=== PATIENT | male | born 1945 | race Asian ===

== ENCOUNTER 2016-07-01 09:48 | Emergency (ER) | payer MEDICARE, BC ==
[~2016-07-01] VITALS: Wt 70.0 kg
[~2016-07-01 09:48] MED LIST: FENO48TA PO; GLEE400 PO; METF500T PO; PANT40TA4 PO; REVLIMID PO
--- NOTE | 2016-07-01 10:16 | ERD ---
ER Documentation Chief Complaint Date/Time DATE: 07/01/16 TIME: 10:16 Chief Complaint sent by pmd for low h&h . gen weakness and fatigue HPI 70-year-old male with history of diabetes mellitus type 2, dyslipidemia and myelodysplastic syndrome with chronic anemia status post multiple transfusions referred to the ED by Dr Monahan for transfusion due to hemoglobin of 5.6 g/dL. Patient is essentially asymptomatic except for mild exertional weakness. Denies chest pain or palpitations. No shortness of breath or cough. No headache or neck pain. No hematemesis, hematochezia, hematuria or other signs of acute blood loss. No fevers or chills. ROS All systems reviewed and are negative except as per history of present illness. Medications Home Meds Active Scripts Imatinib Mesylate* (Gleevec*) 400 Mg Tablet, 400 MG PO DAILY@17 for 30 Days, #30 Prov:DARYL CLINE MD 02/05/16 Metformin Hcl (Glucophage) 500 Mg Tablet, 500 MG PO AC BREAKFAST DINNER for 90 Days, #90 TAB Prov:DARYL CLINE MD 01/30/16 Reported Medications [Revlimid] No Conflict Check, 10 MG PO DAILY for 28 Days, #21 04/19/16 Pantoprazole* (Pantoprazole*) 40 Mg Tablet.dr, 40 MG PO DAILY, TAB 04/19/16 Fenofibrate Nanocrystallized* (Tricor*) 48 Mg Tablet, 48 MG PO DAILY, TAB 01/31/16 Allergies Allergies: Coded Allergies: No Known Allergies (Verified Allergy, Unknown, 07/01/16) PMhx/Soc Reviewed in chart. As per HPI. History of Surgery: No Anesthesia Reaction: No Hx Neurological Disorder: No Hx Respiratory Disorders: No Hx Cardiac Disorders: No Hx Psychiatric Problems: No Hx Miscellaneous Medical Probl: Yes (anemia, Myelodysplastic syndrome) Hx Alcohol Use: No Hx Substance Use: No Hx Tobacco Use: No FmHx No relevant to presenting complaint. Physical Exam Vitals Vital Signs Date Time Temp Pulse Resp B/P Pulse Ox O2 Delivery O2 Flow Rate FiO2 07/01/16 09:51 97.9 100 20 163/74 98 Physical Exam Const: Alert, no acute distress. Head: Atraumatic Eyes: Pale conjunctiva ENT: Normal External Ears, Nose and Mouth. Neck: Full range of motion. No JVD Resp: Clear to auscultation bilaterally Cardio: Regular rate and rhythm, no murmurs Abd: Soft, non tender, non distended. Normal bowel sounds Skin: No petechiae or rashes Back: No midline or flank tenderness Ext: No cyanosis, or edema Neur: Awake and alert. No focal deficit observed Psych: Normal Mood and Affect Result Diagram: 07/01/16 1025 07/01/16 1025 Results 24 hrs Laboratory Tests Test 07/01/16 10:25 Anion Gap 18 Basophils # Pending Basophils % Pending Blood Morphology Comment Blood Urea Nitrogen 15mg/dl Calcium Level 9.3mg/dl Carbon Dioxide Level 23mmol/L Chloride Level 109mmol/L Creatinine 0.94mg/dl Eosinophils # Pending Eosinophils % Pending Glucose Level 128mg/dl Hematocrit 16.5% Hemoglobin 5.6g/dl Lymphocytes # Pending Lymphocytes % Pending Mean Corpuscular Hemoglobin 28.4pg Mean Corpuscular Hemoglobin Concent 34.0g/dl Mean Corpuscular Volume 83.6fl Mean Platelet Volume 11.3fl Monocytes # Pending Monocytes % Pending Neutrophils # Pending Neutrophils % Pending Nucleated Red Blood Cells # Pending Nucleated Red Blood Cells % Pending Platelet Count 5310^3/UL Potassium Level 3.7mmol/L Red Blood Count 1.9710^6/ul Red Cell Distribution Width 17.7% Sodium Level 146mmol/L White Blood Count 3.710^3/ul Current Medications Medications (Trade) Dose Ordered Sig/Sun Route PRN Reason Start Time Stop Time Status Last Admin Dose Admin Diphenhydramine HCl (Benadryl) 50 mg STK-MED ONCE .ROUTE 07/01/16 11:31 07/01/16 11:32 DC Acetaminophen (Tylenol Tab) 325 mg STK-MED ONCE .ROUTE 07/01/16 11:31 07/01/16 11:32 DC Acetaminophen (Tylenol Tab) 650 mg ONCE ONCE PO 07/01/16 12:00 07/01/16 12:01 DC 07/01/16 11:40 Diphenhydramine HCl (Benadryl) 25 mg ONCE ONCE IV 07/01/16 12:00 07/01/16 12:01 DC 07/01/16 11:40 Procedures/MDM DOCUMENTS REVIEWED: ED nurse, prior ED, prior records ED COURSE: Risks and benefits of blood transfusion including allergic reactions , infectious diseases such as HIV and hepatitis C explained and understood. Informed consent for blood transfusion obtained. Type and crossmatch for 2 units packed red blood cells. 1 unit transfused without complications. They will be a significant delay in obtaining the second unit. REEXAMINATION/REEVALUATION: Time: 14: 30. Doing well. Asymptomatic [employer]KIN-year-old male with history of diabetes mellitus type 2, dyslipidemia and myelodysplastic syndrome with chronic anemia status post multiple transfusions referred to the ED by Dr Monahan for transfusion due to hemoglobin of 5.6 g/dL. patient received 1 unit of packed red blood cells. There will be a significant delay in obtaining the second unit. Discussed with Dr Monahan. As this is a chronic condition and the patient is asymptomatic he agrees that there is no urgency to complete the transfusion today and the patient can be discharged and he will follow-up for further transfusions as needed. Counseled [patient and family] regarding diagnostic workup, diagnosis and need for followup. Understands to return to ED if symptoms recur, worsen or any other concerns. 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
[2016-07-01 10:38] LABS: HEMATOCRIT 16.5 % (42.0-52.0); MEAN CORPUSCULAR HEMOGLOBIN 28.4 pg (29.0-33.0); MEAN CORPUSCULAR VOLUME 83.6 fl (82.0-101.0); MEAN PLATELET VOLUME 11.3 fl (7.4-10.4); PLATELET COUNT 53 10^3/UL (140-440); RED BLOOD COUNT 1.97 10^6/ul (4.70-6.10); RED CELL DISTRIBUTION WIDTH 17.7 % (11.5-14.5); UNCORRECTED WBC 3.7 10^3/ul (4.8-10.8); WHITE BLOOD COUNT 3.7 10^3/ul (4.8-10.8)
[2016-07-01 10:46] LABS: CONDITION 1; LH ANALYZER COMMENTS 1; SUSPECT 1
[2016-07-01 10:50] LABS: HEMOGLOBIN 5.6 g/dl (14.0-18.0)
[2016-07-01 10:53] LABS: POTASSIUM 3.7 mmol/L (3.5-5.1)
[2016-07-01 10:55] LABS: CREATININE 0.94 mg/dl (0.61-1.24)
[2016-07-01 10:56] LABS: CALCIUM 9.3 mg/dl (8.4-10.2)
[2016-07-01] MEDS ORDERED: DIPHENHYDRAMINE 50 MG INJ ONE (11:31)
[2016-07-01] MEDS ORDERED: ACETAMINOPHEN 325 MG TAB ONE (11:31)
[2016-07-01] MEDS ORDERED: ACETAMINOPHEN 325 MG TAB PO ONE (12:00)
[2016-07-01] MEDS ORDERED: DIPHENHYDRAMINE 50 MG INJ IV ONE (12:00)
[2016-07-01 15:24] LABS: LYMPHOCYTES # 1.4 10^3/ul (0.8-2.9); MONOCYTE # 0.2 10^3/ul (0.3-0.9)
[2016-07-01 15:25] LABS: ANISOCYTOSIS 1+; HYPOCHROMASIA 1+; OVALOCYTES 1+; PLATELET ESTIMATE PLT APPEAR DECREASED; POIKILOCYTOSIS 2+
[2016-07-01 15:52] VITALS: BP 118/70; PULSE 78; RESP 16; TEMP 98.1
[2016-07-01] MEDS ORDERED: HYDROCHLOROTHIAZIDE 50 MG TAB PO ONE (16:00)
[2016-07-01] MEDS ORDERED: HYDROCHLOROTHIAZIDE 25 MG TAB PO ONE (16:30)
== END 2016-07-01 16:09 | disposition home or self-care (01) ==
LOC: E/R 09:48
DX: D46.9 Myelodysplastic syndrome, unspecified (principal); D46.4 Refractory anemia, unspecified; E11.9 Type 2 diabetes mellitus without complications; E78.5 Hyperlipidemia, unspecified; Z79.84 Long term (current) use of oral hypoglycemic drugs
CPT/HCPCS: 36415; 36430; 80048; 85025; 86850; 86900; 86901; 86920; 96374; 99284; J1200; P9011

== ENCOUNTER 2016-12-15 12:52 | Inpatient (IN) | payer MEDICARE, BC ==
[2016-12-13 21:42] VITALS: PULSE 108
[~2016-12-15] VITALS: Ht 170.2 cm; Wt 52.2 kg
[2016-12-15] MEDS ORDERED: CEFTRIAXONE 1 GM/50 ML (PMX) 50 ML IVPB STA (13:34)
[2016-12-15] MEDS ORDERED: SOD CHLORIDE 0.9% 1,000 ML IV STA (13:34)
[2016-12-15] MEDS ORDERED: METF500T4 PO (13:42)
[2016-12-15] MEDS ORDERED: FENO48TA4 PO (13:42)
[2016-12-15] MEDS ORDERED: PANT40TA4 PO (13:43)
[2016-12-15] MEDS ORDERED: REVLIMID PO (13:45)
[2016-12-15] MEDS: ONDANSETRON 4 MG INJ IV STA ×2 (13:48→17:37)
[2016-12-15] MEDS: morphine 4 MG/ML VIAL IV STA ×2 (13:48→17:37)
[2016-12-15 13:49] LABS: ADD SCAN DIFF NO
[2016-12-15 14:09] LABS: ABNORMAL IP MESSAGE 1; MEAN CORPUSCULAR HEMOGLOBIN 29.4 pg (29.0-33.0); MEAN CORPUSCULAR VOLUME 91.9 fl (82.0-101.0); PLATELET COUNT 82 10^3/UL (140-415); RED BLOOD COUNT 2.72 10^6/ul (4.70-6.10); RED CELL DISTRIBUTION WIDTH 14.6 % (11.5-14.5)
[2016-12-15 14:12] LABS: ADD UMIC YES; UR ASCORBIC ACID 40 mg/dL (NEGATIVE); UR BILIRUBIN (Dip) NEGATIVE (NEGATIVE); UR BLOOD (Dip) NEGATIVE (NEGATIVE); UR CLARITY CLEAR (CLEAR); UR COLOR YELLOW (YELLOW); UR GLUCOSE (Dip) 2+ mg/dL (NEGATIVE); UR KETONES (Dip) NEGATIVE (NEGATIVE); UR LEUKOCYTE ESTERASE (Dip) NEGATIVE Leu/ul (NEGATIVE); UR MUCUS FEW /HPF (NONE SEEN); UR NITRITE (Dip) NEGATIVE (NEGATIVE); UR RBC 2 /HPF (0-5); UR SPECIFIC GRAVITY (Dip) 1.024 (1.003-1.030); UR TOTAL PROTEIN (Dip) 1+ mg/dl (NEGATIVE); UR UROBILINOGEN (Dip) NEGATIVE (NEGATIVE)
[2016-12-15 14:20] LABS: ALBUMIN 4.4 g/dl (3.3-4.9); ALBUMIN/GLOBULIN RATIO 1.04; BILIRUBIN,INDIRECT 0.1 mg/dl (0-1.1); BILIRUBIN,TOTAL 0.1 mg/dl (0.2-1.3); CALCIUM 9.4 mg/dl (8.4-10.2); CREATININE 1.03 mg/dl (0.61-1.24); POTASSIUM 3.6 mmol/L (3.5-5.1); TOTAL PROTEIN 8.6 g/dl (6.1-8.1)
[2016-12-15] MEDS ORDERED: IODIXANOL LOCM 100 ML BTL ONE (14:47)
[2016-12-15] MEDS ORDERED: SOD CHLORIDE 0.9% 100 ML ONE (14:47)
--- NOTE | 2016-12-15 15:17 | RADRPT ---
PROCEDURE: CT Abdomen and Pelvis with contrast. CLINICAL INDICATION: Abdominal pain , fever TECHNIQUE: CT scan of the abdomen and pelvis with contrast was performed on a multidetector high-r esolution CT scanner. Coronal and sagittal reformatted images were obtained from the axial source im ages. Images were reviewed on a high-resolution PACS workstation. 80 cc of Isovue 300 iodinated cont rast was administered intravenously without reported complication. The total exam CTDI equals 5 mGy and the total exam DLP equals 309 mGy-cm. One or more of the following dose reduction techniques w ere used: Automated exposure control, Adjustment of the mA and/or kV according to patient size, and/ or use of iterative reconstruction technique. COMPARISON: None. FINDINGS: 6 mm right lower lobe nodule. Small left pleural effusion and left lower lobe atelectasis. Coronar y arterial atherosclerosis. Sternotomy wires. Right upper lobe subpleural nodule along the minor f issure. No suspicious hepatic mass identified. A tiny 3 mm hypodense structure in the left hepatic lobe is too small to characterize but possibly a small cyst. The portal vein is patent. Cholelithiasis. T he gallbladder is contracted. No pancreatic ductal dilatation. Multiple wedge areas of hypoattenua tion are seen on the enlarged spleen. The main splenic vein remains patent. No hydronephrosis. Nonobstructing right renal stones. Bilateral renal cysts. No bowel obstruction. The appendix is not clearly visualized but there is no focal inflammatory stra nding in the right lower quadrant. No significant retroperitoneal lymphadenopathy, ascites or evidence of pneumoperitoneum. Aortoiliac atherosclerosis. Degenerative changes of the spine. 8 mm right lateral listhesis and grade 1 anterolisthesis of L4 o n L5. IMPRESSION: Splenomegaly with multiple wedged areas of hypoattenuation concerning for splenic infarcts. Given t he history, the possibility of septic emboli is considered. Small left pleural effusion and left lower lobe atelectasis. 6 mm right lower lobe pulmonary nodule. Consider 6 to 12-month follow-up chest CT for further evalu ation. Cholelithiasis. Nonobstructing right renal stones. RPTAT: AA .Jason Sol MD, MD Date Time Electronically viewed and signed by .Jason Sol MD, MD on 12/15/2016 15:16 .T/
[2016-12-15 15:35] LABS: LYMPHOCYTES # 4.8 10^3/ul (0.8-2.9); MONOCYTE # 3.4 10^3/ul (0.3-0.9); NEUTROPHIL # 19.5 10^3/ul (1.6-7.5)
[2016-12-15] MEDS ORDERED: SODIUM CHLORIDE 0.9% 1L BAG IV* STA (15:51)
[2016-12-15] MEDS ORDERED: CEFEPIME 2GM/50 ML (PMX) 50 ML IVPB STA (15:51)
[2016-12-15] MEDS ORDERED: VANCOMYCIN 1 GM (PMX) 250 ML IVPB ONE (16:00)
--- NOTE | 2016-12-15 18:34 | ERA ---
ER Documentation Chief Complaint Date/Time DATE: 12/15/16 TIME: 18:23 Chief Complaint LEFT LOWER ABDOMINAL PAIN WITH FEVER AND NAUSEA SINCE YESTERDAY HPI This is a 70-year-old male with a history of myelodysplastic syndrome who is here for low-grade fever and pain in his left upper quadrant and left back. The patient received a blood transfusion on Friday late afternoon and developed a fever Friday midmorning. The patient has special antibodies that must be in the blood that he receives via transfusion otherwise he gets a fever. This is happened in the past before but happened within a few hours of getting a blood transfusion. Patient states he has been asymptomatic with no headache cough chest pain diarrhea vomiting or dysuria. He says the pain in his left upper quadrant began yesterday afternoon and described as constant and dull. Nothing makes the pain worse or better and there is no radiation of pain. The patient thinks his hemoglobin was in the low sixes before transfusion ROS All systems reviewed and are negative except as per history of present illness. Medications Home Meds Reported Medications [Revlimid] No Conflict Check, 10 MG PO DAILY 12/15/16 Pantoprazole* (Pantoprazole*) 40 Mg Tablet.dr, 40 MG PO AC BREAKFAST, TAB 12/15/16 Metformin Hcl* (Metformin Hcl*) 500 Mg Tablet, 500 MG PO WITH BREAKFAST DINNE, # 60 TAB 12/15/16 Fenofibrate Nanocrystallized* (Fenofibrate*) 48 Mg Tablet, 48 MG PO DAILY, TAB 12/15/16 Discontinued Reported Medications [Revlimid] No Conflict Check, 10 MG PO DAILY for 28 Days, #21 04/19/16 Pantoprazole* (Pantoprazole*) 40 Mg Tablet.dr, 40 MG PO DAILY, TAB 04/19/16 Fenofibrate Nanocrystallized* (Tricor*) 48 Mg Tablet, 48 MG PO DAILY, TAB 01/31/16 Discontinued Scripts Imatinib Mesylate* (Gleevec*) 400 Mg Tablet, 400 MG PO DAILY@17 for 30 Days, #30 Prov:DARYL CLINE MD 02/05/16 Metformin Hcl (Glucophage) 500 Mg Tablet, 500 MG PO AC BREAKFAST DINNER for 90 Days, #90 TAB Prov:DARYL CLINE MD 01/30/16 Allergies Allergies: Coded Allergies: No Known Allergies (Verified Allergy, Unknown, 12/15/16) PMhx/Soc Medical and Surgical Hx: pt denies Surgical Hx History of Surgery: No Anesthesia Reaction: No Hx Neurological Disorder: No Hx Respiratory Disorders: No Hx Cardiac Disorders: No Hx Psychiatric Problems: No Hx Miscellaneous Medical Probl: Yes (Mydysplastic syndrome 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) ) Hx Alcohol Use: No Hx Substance Use: No Hx Tobacco Use: No Smoking Status: Unknown if ever smoked FmHx Family History: No coronary disease Physical Exam Vitals Vital Signs Date Time Temp Pulse Resp B/P Pulse Ox O2 Delivery O2 Flow Rate FiO2 12/15/16 18:09 84 20 96/53 99 Nasal Cannula 2.0 12/15/16 17:36 86 102/61 12/15/16 17:14 88 20 101/57 95 Room Air 12/15/16 15:11 99.0 88 21 103/60 97 Room Air 12/15/16 12:57 99.0 83 18 114/57 95 Physical Exam Const: Well-developed, slightly cachectic Head: Atraumatic, normocephalic Eyes: Normal Conjunctiva, PERRLA, EOMI, normal sclera, no nystagmus ENT: Normal External Ears, Nose and Mouth, moist mucus membranes. Neck: Full range of motion. No meningismus, no lymphadenopathy. Resp: Clear to auscultation bilaterally, no wheezing, rhonchi, rales Cardio: Regular rate and rhythm, no murmurs, S1 S2 present Abd: Soft, mild to moderate left upper quadrant tenderness non distended. Normal bowel sounds, no guarding or rebound, no pulsitile abdominal masses or bruits Skin: No petechiae or rashes, no ecchymosis , no maculopapular rash Back: Very mild left flank tenderness Ext: No cyanosis, or edema, FROM x 4, normal inspection, neurovascularly intact x 4 Neur: Awake and alert, STR 5/5 x 4, sensation intact x 4, no focal findings, cerebellum intact Psych: Normal Mood and Affect Result Diagram: 12/15/16 1335 12/15/16 1335 Results 24 hrs Laboratory Tests Test 12/15/16 13:35 12/15/16 13:52 12/15/16 16:30 White Blood Count 34.210^3/ul Red Blood Count 2.7210^6/ul Hemoglobin 8.0g/dl Hematocrit 25.0% Mean Corpuscular Volume 91.9fl Mean Corpuscular Hemoglobin 29.4pg Mean Corpuscular Hemoglobin Concent 32.0g/dl Red Cell Distribution Width 14.6% Platelet Count 8210^3/UL Mean Platelet Volume fl Neutrophils % 57.0% Band Neutrophils % 17.0% Lymphocytes % 14.0% Monocytes % 10.0% Metamyelocytes % 2.0% Neutrophils # 19.510^3/ul Lymphocytes # 4.810^3/ul Monocytes # 3.410^3/ul Metamyelocytes # 0.7 Large Platelets 2+ Sodium Level 140mmol/L Potassium Level 3.6mmol/L Chloride Level 104mmol/L Carbon Dioxide Level 25mmol/L Anion Gap 15 Blood Urea Nitrogen 19mg/dl Creatinine 1.03mg/dl Glucose Level 154mg/dl Calcium Level 9.4mg/dl Total Bilirubin 0.1mg/dl Direct Bilirubin 0.00mg/dl Indirect Bilirubin 0.1mg/dl Aspartate Amino Transf (AST/SGOT) 22IU/L Alanine Aminotransferase (ALT/SGPT) 26IU/L Alkaline Phosphatase 60IU/L Total Protein 8.6g/dl Albumin 4.4g/dl Globulin 4.20g/dl Albumin/Globulin Ratio 1.04 Urine Color YELLOW Urine Clarity CLEAR Urine pH 5.0 Urine Specific [place] 1.024 Urine Ketones NEGATIVEmg/dL Urine Nitrite NEGATIVEmg/dL Urine Bilirubin NEGATIVEmg/dL Urine Urobilinogen NEGATIVEmg/dL Urine Leukocyte Esterase NEGATIVELeu/ul Urine Microscopic RBC 2/HPF Urine Microscopic WBC 2/HPF Urine Mucus FEW/HPF Urine Hemoglobin NEGATIVEmg/dL Urine Glucose 2+mg/dL Urine Total Protein 1+mg/dl Lactic Acid Level 1.0mmol/L Current Medications Medications (Trade) Dose Ordered Sig/Sun Route PRN Reason Start Time Stop Time Status Last Admin Dose Admin Sodium Chloride (NS) 1,000 ml @ 1,000 mls/hr Q1H STAT IV 12/15/16 13:34 12/15/16 14:33 DC 12/15/16 13:47 Morphine Sulfate (morphine) 4 mg ONCE STAT IV 12/15/16 13:34 12/15/16 13:35 DC 12/15/16 17:37 Ondansetron HCl 4 mg 4 mg ONCE STAT IV 12/15/16 13:34 12/15/16 13:35 DC 12/15/16 17:37 Ceftriaxone Sodium (Rocephin) 50 ml @ 100 mls/hr ONCE STAT IVPB 12/15/16 13:34 12/15/16 14:03 DC 12/15/16 13:47 IV Flush 10 ml 10 ml STK-MED ONCE .ROUTE 12/15/16 14:47 12/15/16 14:48 DC 12/15/16 14:57 Sodium Chloride (NS) 100 ml @ ud STK-MED ONCE .ROUTE 12/15/16 14:47 12/15/16 14:48 DC 12/15/16 14:57 Iodixanol (Visipaque Locm) 100 ml STK-MED ONCE .ROUTE 12/15/16 14:47 12/15/16 14:48 DC 12/15/16 14:57 Sodium Chloride 1710 ml 1,710 ml BOLUS OVER 2 HOURS STAT IV* 12/15/16 15:51 12/15/16 15:53 DC 12/15/16 16:18 Cefepime HCl 50 ml @ 100 mls/hr ONCE STAT IVPB 12/15/16 15:51 12/15/16 16:20 DC 12/15/16 16:25 Vancomycin HCl (Vancocin) 250 ml @ 125 mls/hr ONCE ONCE IVPB 12/15/16 16:00 12/15/16 17:59 DC 12/15/16 17:37 Procedures/MDM PROCEDURE: CT Abdomen and Pelvis with contrast. CLINICAL INDICATION: Abdominal pain , fever TECHNIQUE: CT scan of the abdomen and pelvis with contrast was performed on a multidetector high-resolution CT scanner. Coronal and sagittal reformatted images were obtained from the axial source images. Images were reviewed on a high-resolution PACS workstation. 80 cc of Isovue 300 iodinated contrast was administered intravenously without reported complication. The total exam CTDI equals 5 mGy and the total exam DLP equals 309 mGy-cm. One or more of the following dose reduction techniques were used: Automated exposure control, Adjustment of the mA and/or kV according to patient size, and/or use of iterative reconstruction technique. COMPARISON: None. FINDINGS: 6 mm right lower lobe nodule. Small left pleural effusion and left lower lobe atelectasis. Coronary arterial atherosclerosis. Sternotomy wires. Right upper lobe subpleural nodule along the minor fissure. No suspicious hepatic mass identified. A tiny 3 mm hypodense structure in the left hepatic lobe is too small to characterize but possibly a small cyst. The portal vein is patent. Cholelithiasis. The gallbladder is contracted. No pancreatic ductal dilatation. Multiple wedge areas of hypoattenuation are seen on the enlarged spleen. The main splenic vein remains patent. No hydronephrosis. Nonobstructing right renal stones. Bilateral renal cysts. No bowel obstruction. The appendix is not clearly visualized but there is no focal inflammatory stranding in the right lower quadrant. No significant retroperitoneal lymphadenopathy, ascites or evidence of pneumoperitoneum. Aortoiliac atherosclerosis. Degenerative changes of the spine. 8 mm right lateral listhesis and grade 1 anterolisthesis of L4 on L5. IMPRESSION: Splenomegaly with multiple wedged areas of hypoattenuation concerning for splenic infarcts. Given the history, the possibility of septic emboli is considered. Small left pleural effusion and left lower lobe atelectasis. 6 mm right lower lobe pulmonary nodule. Consider 6 to 12-month follow-up chest CT for further evaluation. Cholelithiasis. Nonobstructing right renal stones. RPTAT: AA .Jason Sol MD, MD Date Time Electronically viewed and signed by .Jason Sol MD, on 12/15/2016 15:16 .T/ CC: BRITTANI CONTRERAS DO This patient has elevated white blood count of 34,000. His last white blood count was 3.7 in June. 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 His lactate level is 1.0, however he could still be infectious. He does have a bandemia this can be part of an infectious process and early leukemic process Splenic infarcts he has can also be from a leukemic process. No UTI no chest infection, no intra-abdominal process going on. Patient received blood cultures and antibiotics IV fluids I did speak with Dr. 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
[2016-12-15] MEDS ORDERED: SOD CHLORIDE 0.9% 1,000 ML IV SCH (19:02)
--- NOTE | 2016-12-15 19:14 | RADRPT ---
PROCEDURE: XR Chest. CLINICAL INDICATION: Chest pain TECHNIQUE: Single frontal view of the chest was obtained COMPARISON: 06/06/2016 FINDINGS: The heart is enlarged. The thoracic aorta is calcified. There are bibasilar atelectatic changes. There is no focal consolidation. There is no pleural effusion or pneumothorax. RPTAT: AA IMPRESSION: Mild cardiomegaly. Calcified aorta consistent with atherosclerotic disease. Bibasilar atelectatic changes. .Bharathi Flood MD, MD Date Time Electronically viewed and signed by .Bharathi Flood MD, on 12/15/2016 19:14 .S/
[2016-12-15] MEDS ORDERED: ONDANSETRON 4 MG INJ IV PRN (19:30)
[2016-12-15] MEDS ORDERED: DOCUSATE SODIUM 100 MG CAP PO PRN (19:30)
[2016-12-15] MEDS ORDERED: ACETAMINOPHEN 325 MG TAB PO PRN ×2 (19:30)
[2016-12-15] MEDS ORDERED: NACL 0.9% 3 ML SYG IV SCH (19:30)
[2016-12-15 20:46] VITALS: TEMP 98.9
[2016-12-15] MEDS ORDERED: FAMOTIDINE 20 MG TAB PO SCH (21:00)
[2016-12-15 21:46] VITALS: BP 114/66; RESP 20
[2016-12-15 21:52] VITALS: Ht 170.2 cm; Wt 52.2 kg
[2016-12-15 21:53] VITALS: BP 114/66; PULSE 102; RESP 20
[2016-12-16] VITALS (10 sets, daily range): BP systolic 99–119; BP diastolic 58–63; PULSE 75–103; RESP 20
[2016-12-16] MEDS ORDERED: GLUCAGON 1 MG INJ IM PRN (05:00)
[2016-12-16] MEDS ORDERED: DEXTROSE 50% 50 ML SYRINGE IV PRN ×2 (05:00)
[2016-12-16] MEDS ORDERED: GLUCOSE GEL 15 GRAM TUBE BUCCAL PRN (05:00)
[2016-12-16] MEDS ORDERED: GLUCOSE GEL 15 GRAM TUBE PO PRN ×2 (05:00)
[2016-12-16 07:03] LABS: ADD SCAN DIFF NO
[2016-12-16 07:10] LABS: ABNORMAL IP MESSAGE 1; HEMATOCRIT 21.1 % (42.0-52.0); MEAN CORPUSCULAR HEMOGLOBIN 29.7 pg (29.0-33.0); MEAN CORPUSCULAR HGB CONC 32.7 g/dl (32.0-37.0); MEAN CORPUSCULAR VOLUME 90.9 fl (82.0-101.0); PLATELET COUNT 135 10^3/UL (140-415); RED BLOOD COUNT 2.32 10^6/ul (4.70-6.10); RED CELL DISTRIBUTION WIDTH 14.8 % (11.5-14.5); WHITE BLOOD COUNT 36.2 10^3/ul (4.8-10.8)
[2016-12-16 07:18] LABS: HEMOGLOBIN 6.9 g/dl (14.0-18.0)
[2016-12-16 07:42] LABS: ALBUMIN 3.4 g/dl (3.3-4.9); ALBUMIN/GLOBULIN RATIO 0.91; BILIRUBIN,INDIRECT 0.3 mg/dl (0-1.1); BILIRUBIN,TOTAL 0.3 mg/dl (0.2-1.3); CREATININE 0.83 mg/dl (0.61-1.24); POTASSIUM 3.4 mmol/L (3.5-5.1); TOTAL PROTEIN 7.1 g/dl (6.1-8.1)
[2016-12-16] MEDS: [UNRECOGNIZED DRUG - REMARK] XX SCH ×2 (08:00→15:20)
[2016-12-16] MEDS: metFORMIN 500 MG TAB PO SCH ×2 (08:11→17:37)
[2016-12-16] MEDS: FENOFIBRATE 48 MG TAB PO SCH (08:12)
[2016-12-16] MEDS: FAMOTIDINE 20 MG TAB PO SCH (08:12)
[2016-12-16] MEDS: ACCU-CHEK XX SCH ×4 (08:12→21:22)
[2016-12-16] MEDS ORDERED: ACETAMINOPHEN 325 MG TAB PO ONE (09:00)
[2016-12-16] MEDS ORDERED: DIPHENHYDRAMINE 25 MG CAP PO ONE (09:00)
[2016-12-16] MEDS ORDERED: REVLIMID 10 MG PO SCH (09:00)
[2016-12-16] MEDS ORDERED: HYDROCORTISONE 250 MG INJ IV ONE (09:00)
--- NOTE | 2016-12-16 09:21 | CONS ---
Date/Time of Note Date/Time of Note DATE: 12/16/16 TIME: 08:55 Assessment/Plan Assessment/Plan Chief Complaint/Hosp Course LUQ pain. Anemia, leukocytosis and fever. Problems: (1) Leukocytosis Status: Acute Qualifiers: Qualified Code: D72.825 - Bandemia (2) Splenic infarct Status: Acute (3) MDS (myelodysplastic syndrome) Status: Chronic (4) History of gout Status: Chronic (5) Hyperuricemia Status: Chronic (6) GERD (gastroesophageal reflux disease) Status: Chronic (7) Beta thalassemia Status: Chronic Additional Assessment/Plan Pt has known diagnosis of Myelodysplastic Syndrome and and underlying congenital hemoglobinopathy (Beta Thal). Pt now admitted with fever and LUQ pain after receiving RBC transfusion on 12/13. Pt has had similar transfusion reactions in the past and requires premedication with APAP, benadryl and hydrocortisone. CT scan of abd/pelvis done on admit demonstrates splenic defects suggesting infarcts. This may explain the leukocytosis as well as the LUQ tenderness. Last WBC in office was 17,400 (12/04) and was 12,700 (11/13). Doubt this represents leukemic transformation. There are no blasts, etc and platelets have remained unchanged. Pt Hgb has dropped to 6.9 again. Will transfuse with 2 units RBC's. Will premedicate as described above. Will also check Lt rib series given recent spontaneous Rt rib fx. Consultation Date/Type/Reason Admit Date/Time Dec 15, 2016 at 19:03 Date of Consultation: Dec 16, 2016 Type of Consultation: hematology Reason for Consultation myelodysplastic syndrome, LUQ pain and fever post transfusion. Referring Provider: FRANCHESKA ROBISON MD Hx of Present Illness 70 y/o male with known diagnosis of myelodysplastic syndrome and an underlying hemoglobinopathy. Pt has not responded to the various treatments for MDS--including erythropoietin , azacitidine. He is presently receiving lenalidomide. He is taking 10 mg daily for 21 days and then off for 7 days. Has completed 12 days of the present course. Pt was transfused with 2 units of RBC's as an OP on 12/13. The next day developed fever and also LUQ abd pain which was pleuritic in nature. Now somewhat improved. Pt denies cough, SOB or hemoptysis. Has had no chest wall trauma or falls. Recently did have spontaneous fx of ribs on Rt. Omly complaints at this time are of the Lt sided LUQ and Lt lower chest discomfort. Pleuritic in nature. Past Medical History Medical History: GERD, other (hyperuricemia and gout) Past Surgical History Past Surgical Hx: no surgical history Family History Significant Family History: no pertinent family hx Social History Alcohol Use: none Smoking Status: Never smoker Drug Use: none Other Social History . Exam/Review of Systems Vital Signs Vitals Vital Signs Date Time Temp Pulse Resp B/P Pulse Ox O2 Delivery O2 Flow Rate FiO2 12/16/16 08:35 98.5 12/16/16 08:20 Nasal Cannula 2.0 12/16/16 08:12 100 12/16/16 07:48 20 112/60 96 Intake and Output 12/15/16 12/15/16 12/16/16 15:00 23:00 07:00 Intake Total 120 ml 560 ml Balance 120 ml 560 ml Exam Constitutional: alert, oriented, well developed Head: atraumatic, normocephalic Eyes: EOMI, PERRL, nl conjunctiva, nl sclera ENMT: mucosa pink and moist, nl lips & teeth Neck: non-tender, supple Respiratory: crackles/rales (--bibasilar.), other (No pain on palpation of Lt chest wall) Cardiovascular: nl pulses, regular rate and rhythm Gastrointestinal: soft, splenomegaly, tender (in LUQ. No rebound.) Genitourinary - Male: nl penis, nl scrotum Musculoskeletal: nl extremities to inspection Extremities: normal pulses Neurological: [employer] II-XII intact, nl mental status, nl speech, nl strength Skin: nl turgor, rash or lesions Lymph: nl lymph nodes Results Result Diagram: 12/16/16 0612/16/16 0655 Results 24 hrs Laboratory Tests Test 12/15/16 13:35 12/15/16 13:52 12/15/16 16:30 12/15/16 18:20 White Blood Count 34.2 #H Red Blood Count 2.72 #L Hemoglobin 8.0 #L Hematocrit 25.0 #L Mean Corpuscular Volume 91.9 Mean Corpuscular Hemoglobin 29.4 Mean Corpuscular Hemoglobin Concent 32.0 Red Cell Distribution Width 14.6 H Platelet Count 82 L Mean Platelet Volume Neutrophils % 57.0 Band Neutrophils % 17.0 H Lymphocytes % 14.0 L Monocytes % 10.0 Metamyelocytes % 2.0 H Neutrophils # 19.5 H Lymphocytes # 4.8 H Monocytes # 3.4 H Metamyelocytes # 0.7 Large Platelets 2+ Sodium Level 140 Potassium Level 3.6 Chloride Level 104 Carbon Dioxide Level 25 Anion Gap 15 Blood Urea Nitrogen 19 Creatinine 1.03 Glucose Level 154 Calcium Level 9.4 Total Bilirubin 0.1 L Direct Bilirubin 0.00 Indirect Bilirubin 0.1 Aspartate Amino Transf (AST/SGOT) 22 Alanine Aminotransferase (ALT/SGPT) 26 Alkaline Phosphatase 60 Total Protein 8.6 H Albumin 4.4 Globulin 4.20 H Albumin/Globulin Ratio 1.04 Urine Color YELLOW Urine Clarity CLEAR Urine pH 5.0 Urine Specific [place] 1.024 Urine Ketones NEGATIVE Urine Nitrite NEGATIVE Urine Bilirubin NEGATIVE Urine Urobilinogen NEGATIVE Urine Leukocyte Esterase NEGATIVE Urine Microscopic RBC 2 Urine Microscopic WBC 2 Urine Mucus FEW A Urine Hemoglobin NEGATIVE Urine Glucose 2+ H Urine Total Protein 1+ H Lactic Acid Level 1.0 1.1 Test 12/16/16 06:55 12/16/16 08:08 White Blood Count 36.2 H Red Blood Count 2.32 L Hemoglobin 6.9 *L Hematocrit 21.1 L Mean Corpuscular Volume 90.9 Mean Corpuscular Hemoglobin 29.7 Mean Corpuscular Hemoglobin Concent 32.7 Red Cell Distribution Width 14.8 H Platelet Count 135 #L Mean Platelet Volume Neutrophils % Lymphocytes % Monocytes % Neutrophils # Lymphocytes # Monocytes # Sodium Level 140 Potassium Level 3.4 L Chloride Level 105 Carbon Dioxide Level 25 Anion Gap 13 Blood Urea Nitrogen 15 Creatinine 0.83 Glucose Level 112 # Calcium Level 9.0 Total Bilirubin 0.3 Direct Bilirubin 0.00 Indirect Bilirubin 0.3 Aspartate Amino Transf (AST/SGOT) 24 Alanine Aminotransferase (ALT/SGPT) 25 Alkaline Phosphatase 45 Total Protein 7.1 # Albumin 3.4 # Globulin 3.70 H Albumin/Globulin Ratio 0.91 Bedside Glucose 133 Medications Medications Current Medications Acetaminophen (Tylenol Tab) 650 mg Q6H PRN PO PAIN LEVEL 1-3 OR FEVER Last administered on 12/15/16t 22:50; Admin Dose 650 MG; Start 12/15/16 at 19:30 Docusate Sodium (Colace) 100 mg Q12H PRN PO CONSTIPATION; Start 12/15/16 at 19: 30 Fenofibrate (Tricor) 48 mg DAILY PO Last administered on 12/16/16 08:12; Admin Dose 48 MG; Start 12/16/16 at 09:00 Miscellaneous Information 10 mg DAILY PO ; Start 12/16/16 at 09:00; Status UNV Miscellaneous Information 1 ea NOTE XX ; Start 12/16/16 at 05:00 Glucose (Glutose) 15 gm Q15M PRN PO DECREASED GLUCOSE; Start 12/16/16 at 05:00 Glucose (Glutose) 22.5 gm Q15M PRN PO DECREASED GLUCOSE; Start 12/16/16 at 05: 00 Dextrose (D50w Syringe) 25 ml Q15M PRN IV DECREASED GLUCOSE; Start 12/16/16 at 05:00 Dextrose (D50w Syringe) 50 ml Q15M PRN IV DECREASED GLUCOSE; Start 12/16/16 at 05:00 Glucagon (Glucagen) 1 mg Q15M PRN IM DECREASED GLUCOSE; Start 12/16/16 at 05:00 Glucose (Glutose) 15 gm Q15M PRN BUCCAL DECREASED GLUCOSE; Start 12/16/16 at 05 :00 Famotidine (Pepcid) 20 mg DAILY PO Last administered on 12/16/16 08:12; Admin Dose 20 MG; Start 12/16/16 at 09:00 Miscellaneous Information (*Order Clarification Bulletin) REVLIMID IS NON- FORMULARY MED, PLE... Q8H XX ; Start 12/16/16 at 08:00 Acetaminophen (Tylenol Tab) 650 mg ONCE ONCE PO ; Start 12/16/16 at 09:00; Stop 12/16/16 at 09:01 Diphenhydramine HCl (Benadryl) 25 mg ONCE ONCE PO ; Start 12/16/16 at 09:00; Stop 12/16/16 at 09:01 Hydrocortisone (Solu-Cortef) 125 mg ONCE ONCE IV ; Start 12/16/16 at 09:00; Stop 12/16/16 at 09:01 Procedures Procedures Meds at [facility] include lenalidomide 10 mg daily, pantoprazole 40 mg daily. Copies To: CC: DARLENE HAYWOOD MD; FRANCHESKA ROBISON MD, STANLEY H MD Dec 16, 2016 09:05
[2016-12-16 11:00] LABS: LYMPHOCYTES # 4.7 10^3/ul (0.8-2.9); MONOCYTE # 1.4 10^3/ul (0.3-0.9); MYELOCYTES # 0.4; NEUTROPHIL # 18.5 10^3/ul (1.6-7.5)
--- NOTE | 2016-12-16 17:23 | HP ---
Date/Time of Note Date/Time of Note DATE: 12/16/16 TIME: 17:11 Assessment/Plan VTE Prophylaxis VTE Prophylaxis Intervention: contraindicated (bleeding risk) Lines/Catheters IV [facility] Type (from [facility] Peripheral IV Urinary Cath still in place: No Assessment/Plan Assessment/Plan 1 splenic infarct 2.mds 3. leukocytosis, discussed w dr hawthorne, may relate to current illness and not leukemic transformation gerd beta thallasemia, chronic plan will follow with observation and supportive care at this point cultures fhave been done HPI/ROS Admit Date/Time Admit Date/Time Dec 15, 2016 at 19:03 ROS 70 yr old [place] male followed for past several years with myelodysplastic syndrome manifest by recurrent anemia and need for transfusions.Last transfusion on 12/13. Presented to er last evening with fever and luq pain. found to have leukocytosis and splenic tenderness...ct showing splenic infarcts. patient quite uncomfortable on exam of luq with fullness present. chems ok, hgb low 6.9, nl platelets. In fact he has persistent mild leukocyutosis, last 17k per dr hawthorne's notepmh no prior surgery. no other significant medical problems except hx gerd, thall minor, gout no cigarettes or alcohol retired. prior to current mds quite active, walking and golf , two grown sons nearby and help with his care recent rib fx ofn exam awake and alert, co abd pain heent ok lungs with rales left base heart rate regular abd sl distended and full and tender luq gu nl ext normal no rash or bruising neuro intact PMH/Family/Social Past Medical History Medical History: GERD, other (hyperuricemia and gout) Past Surgical History Past Surgical Hx: no surgical history Social History Alcohol Use: none Smoking Status: Never smoker Drug Use: none Exam/Review of Systems Vital Signs Vitals Vital Signs Date Time Temp Pulse Resp B/P Pulse Ox O2 Delivery O2 Flow Rate FiO2 12/16/16 16:12 96 12/16/16 15:25 99.3 20 117/58 92 12/16/16 08:20 Nasal Cannula 2.0 Intake and Output 12/15/16 12/15/16 12/16/16 15:00 23:00 07:00 Intake Total 120 ml 560 ml Balance 120 ml 560 ml Labs Result Diagram: 12/16/16 0655 12/16/16 0655 Medications Medications Current Medications Acetaminophen (Tylenol Tab) 650 mg Q6H PRN PO PAIN LEVEL 1-3 OR FEVER Last administered on 12/15/16 22:50; Admin Dose 650 MG; Start 12/15/16 at 19:30 Docusate Sodium (Colace) 100 mg Q12H PRN PO CONSTIPATION; Start 12/15/16 at 19: 30 Fenofibrate (Tricor) 48 mg DAILY PO Last administered on 12/16/16 08:12; Admin Dose 48 MG; Start 12/16/16 at 09:00 Miscellaneous Information 10 mg DAILY PO ; Start 12/16/16 at 09:00; Status UNV Miscellaneous Information 1 ea NOTE XX ; Start 12/16/16 at 05:00 Glucose (Glutose) 15 gm Q15M PRN PO DECREASED GLUCOSE; Start 12/16/16 at 05:00 Glucose (Glutose) 22.5 gm Q15M PRN PO DECREASED GLUCOSE; Start 12/16/16 at 05: 00 Dextrose (D50w Syringe) 25 ml Q15M PRN IV DECREASED GLUCOSE; Start 12/16/16 at 05:00 Dextrose (D50w Syringe) 50 ml Q15M PRN IV DECREASED GLUCOSE; Start 12/16/16 at 05:00 Glucagon (Glucagen) 1 mg Q15M PRN IM DECREASED GLUCOSE; Start 12/16/16 at 05:00 Glucose (Glutose) 15 gm Q15M PRN BUCCAL DECREASED GLUCOSE; Start 12/16/16 at 05 :00 Famotidine (Pepcid) 20 mg DAILY PO Last administered on 12/16/16 08:12; Admin Dose 20 MG; Start 12/16/16 at 09:00 Miscellaneous Information (*Order Clarification Bulletin) REVLIMID IS NON- FORMULARY MED, PLE... Q8H XX ; Start 12/16/16 at 08:00 FRANCHESKA ROBISON MD Dec 16, 2016 17:22
--- NOTE | 2016-12-16 17:29 | RADRPT ---
PROCEDURE: Xray left ribs. CLINICAL INDICATION: Left rib pain. TECHNIQUE: Three views of the left ribs. COMPARISON: None available FINDINGS: The osseous structures and surrounding soft tissues of the left rib cage are intact. No acute fract ure is seen. No radiopaque foreign body is identified. There is calcification in the aorta consiste nt with atherosclerosis. There is left basilar air space disease consistent with atelectasis or pne umonia, worse than seen previously. There are old healed right rib fractures. IMPRESSION: 1. Normal left ribs. 2. Atherosclerosis. 3. Left basilar atelectasis or pneumonia, worse than seen previously. 4. Old healed right rib fractures. RPTAT: QQ .Cristhian Brown MD, MD Date Time Electronically viewed and signed by .Cristhian Brown MD, on 12/16/2016 17:28 .R/
[2016-12-17] VITALS (13 sets, daily range): BP systolic 106–125; BP diastolic 58–78; PULSE 75–100; RESP 18–22
[2016-12-17] MEDS: [UNRECOGNIZED DRUG - REMARK] XX SCH ×3 (08:00→13:21)
[2016-12-17] MEDS: ACCU-CHEK XX SCH ×4 (08:13→21:00)
[2016-12-17 08:39] LABS: ADD SCAN DIFF NO
[2016-12-17 08:45] LABS: ABNORMAL IP MESSAGE 1; HEMATOCRIT 30.4 % (42.0-52.0); HEMOGLOBIN 9.8 g/dl (14.0-18.0); MEAN CORPUSCULAR HEMOGLOBIN 28.6 pg (29.0-33.0); MEAN CORPUSCULAR HGB CONC 32.2 g/dl (32.0-37.0); MEAN CORPUSCULAR VOLUME 88.6 fl (82.0-101.0); RED BLOOD COUNT 3.43 10^6/ul (4.70-6.10); RED CELL DISTRIBUTION WIDTH 15.1 % (11.5-14.5); WHITE BLOOD COUNT 37.5 10^3/ul (4.8-10.8)
[2016-12-17] MEDS: FAMOTIDINE 20 MG TAB PO SCH (08:56)
[2016-12-17] MEDS: FENOFIBRATE 48 MG TAB PO SCH (08:56)
[2016-12-17] MEDS: metFORMIN 500 MG TAB PO SCH ×2 (08:56→17:44)
[2016-12-17 08:59] LABS: PLATELET COUNT 100 10^3/UL (140-415)
[2016-12-17 09:07] LABS: ALBUMIN 4.2 g/dl (3.3-4.9); ALBUMIN/GLOBULIN RATIO 0.97; BILIRUBIN,INDIRECT 0.5 mg/dl (0-1.1); BILIRUBIN,TOTAL 0.5 mg/dl (0.2-1.3); CALCIUM 9.9 mg/dl (8.4-10.2); CREATININE 0.94 mg/dl (0.61-1.24); POTASSIUM 3.5 mmol/L (3.5-5.1); TOTAL PROTEIN 8.5 g/dl (6.1-8.1)
--- NOTE | 2016-12-17 10:04 | PN ---
Date/Time of Note Date/Time of Note DATE: 12/17/16 TIME: 09:59 Assessment/Plan VTE Prophylaxis VTE Prophylaxis Intervention: ambulation Lines/Catheters IV Catheter Type (from Nrsg): Peripheral IV Urinary Cath still in place: No Subjective 24 Hr Interval Summary Free Text/Dictation he is up and walking, less luq pain unless he leans over, etrc. no cough no pleuritic sx rib xray no fx but lll atalectasis as would be expected mds...wbc is some higher, hgb ok for him..to cont to observe and tx as needed diabetes on small dose metformin, sugars ok alert lungs clear except left fbase heart rate ok still sore luq ext ok Gastrointestinal: pain Exam/Review of Systems Vital Signs Vitals Vital Signs Date Time Temp Pulse Resp B/P Pulse Ox O2 Delivery O2 Flow Rate FiO2 12/17/16 08:21 99 12/17/16 07:48 2.0 12/17/16 07:42 98.2 19 125/77 98 12/17/16 00:04 Nasal Cannula Intake and Output 12/16/16 12/16/16 12/17/16 15:00 23:00 07:00 Intake Total 980 ml 280 ml Balance 980 ml 280 ml Results Result Diagram: 12/17/16 0750 12/17/16 0750 Results 24 hrs Laboratory Tests Test 12/16/16 12:05 12/16/16 17:15 12/16/16 21:21 12/17/16 06:20 Bedside Glucose 123 189 185 Lab Scanned Report BLOOD TRANSFUSION Test 12/17/16 07:50 12/17/16 08:08 White Blood Count 37.5 H Red Blood Count 3.43 #L Hemoglobin 9.8 #L Hematocrit 30.4 #L Mean Corpuscular Volume 88.6 Mean Corpuscular Hemoglobin 28.6 L Mean Corpuscular Hemoglobin Concent 32.2 Red Cell Distribution Width 15.1 H Platelet Count 100 #L Mean Platelet Volume Neutrophils % Lymphocytes % Monocytes % Eosinophils % Neutrophils # Lymphocytes # Monocytes # Eosinophils # Sodium Level 135 Potassium Level 3.5 Chloride Level 101 Carbon Dioxide Level 28 Anion Gap 10 Blood Urea Nitrogen 16 Creatinine 0.94 Glucose Level 104 Calcium Level 9.9 Total Bilirubin 0.5 Direct Bilirubin 0.00 Indirect Bilirubin 0.5 Aspartate Amino Transf (AST/SGOT) 30 Alanine Aminotransferase (ALT/SGPT) 20 Alkaline Phosphatase 57 Total Protein 8.5 H Albumin 4.2 Globulin 4.30 H Albumin/Globulin Ratio 0.97 Bedside Glucose 114 Medications Medications Current Medications Acetaminophen (Tylenol Tab) 650 mg Q6H PRN PO PAIN LEVEL 1-3 OR FEVER Last administered on 12/15/16 22:50; Admin Dose 650 MG; Start 12/15/16 at 19:30 Docusate Sodium (Colace) 100 mg Q12H PRN PO CONSTIPATION; Start 12/15/16 at 19: 30 Fenofibrate (Tricor) 48 mg DAILY PO Last administered on 12/17/16 08:56; Admin Dose 48 MG; Start 12/16/16 at 09:00 Miscellaneous Information 10 mg DAILY PO ; Start 12/16/16 at 09:00; Status UNV Miscellaneous Information 1 ea NOTE XX ; Start 12/16/16 at 05:00 Glucose (Glutose) 15 gm Q15M PRN PO DECREASED GLUCOSE; Start 12/16/16 at 05:00 Glucose (Glutose) 22.5 gm Q15M PRN PO DECREASED GLUCOSE; Start 12/16/16 at 05: 00 Dextrose (D50w Syringe) 25 ml Q15M PRN IV DECREASED GLUCOSE; Start 12/16/16 at 05:00 Dextrose (D50w Syringe) 50 ml Q15M PRN IV DECREASED GLUCOSE; Start 12/16/16 at 05:00 Glucagon (Glucagen) 1 mg Q15M PRN IM DECREASED GLUCOSE; Start 12/16/16 at 05:00 Glucose (Glutose) 15 gm Q15M PRN BUCCAL DECREASED GLUCOSE; Start 12/16/16 at 05 :00 Famotidine (Pepcid) 20 mg DAILY PO Last administered on 12/17/16 08:56; Admin Dose 20 MG; Start 12/16/16 at 09:00 Miscellaneous Information (*Order Clarification Bulletin) REVLIMID IS NON- FORMULARY MED, PLE... Q8H XX ; Start 12/16/16 at 08:00 FRANCHESKA ROBISON MD Dec 17, 2016 10:04
[2016-12-17 13:12] LABS: WHITE BLOOD COUNT 34.2 10^3/ul (4.8-10.8)
[2016-12-17 13:16] LABS: LYMPHOCYTES # 4.9 10^3/ul (0.8-2.9); MONOCYTE # 4.1 10^3/ul (0.3-0.9); MYELOCYTES # 0.4; NEUTROPHIL # 15.4 10^3/ul (1.6-7.5)
--- NOTE | 2016-12-17 20:32 | PN ---
Date/Time of Note Date/Time of Note DATE: 12/17/16 TIME: 20:22 Assessment/Plan VTE Prophylaxis VTE Prophylaxis Intervention: SCD's Lines/Catheters IV Catheter Type (from Nrs): Saline Lock Urinary Cath still in place: No Assessment/Plan Chief Complaint/Hosp Course LUQ pain. Anemia, leukocytosis and fever. 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 Requires pretreatment with corticosteroids. Rib films demonstrate healed fx on Rt but no fx on Lt. Reluctant to give anti-inflammatory meds for pain of splenic infarct. Feel that pt will be able to go home in AM. Subjective 24 Hr Interval Summary Free Text/Dictation Pt received 2 units of RBC's without fever, chill, etc. Still some Lt sided abd pain, but improved Exam/Review of Systems Vital Signs Vitals Vital Signs Date Time Temp Pulse Resp B/P Pulse Ox O2 Delivery O2 Flow Rate FiO2 12/17/16 19:54 98.6 93 19 125/70 94 12/17/16 15:51 Room Air 12/17/16 07:48 2.0 Intake and Output 12/16/16 12/16/16 12/17/16 15:00 23:00 07:00 Intake Total 980 ml 280 ml Balance 980 ml 280 ml Exam Constitutional: alert, oriented, well developed Psych: nl mood/affect, no complaints Head: atraumatic, normocephalic Eyes: EOMI, nl conjunctiva, nl lids ENMT: mucosa pink and moist, nl external ears & nose Neck: non-tender, supple Respiratory: clear to auscultation, normal air movement Cardiovascular: nl pulses, regular rate and rhythm Gastrointestinal: soft, splenomegaly (. Plap ~ 3 cm below LCM in AAL.), tender (mild LUQ tenderness. No rebound.) Musculoskeletal: nl extremities to inspection Extremities: normal pulses Neurological: [employer] II-XII intact, nl mental status, nl speech, nl strength Skin: nl turgor, rash or lesions Lymph: nl lymph nodes Results Result Diagram: 7/11/17 0750 12/17/16 0750 Results 24 hrs Laboratory Tests Test 12/16/16 21:21 12/17/16 06:20 12/17/16 07:50 12/17/16 08:08 Bedside Glucose 185 114 Lab Scanned Report BLOOD TRANSFUSION White Blood Count 37.5 H Red Blood Count 3.43 #L Hemoglobin 9.8 #L Hematocrit 30.4 #L Mean Corpuscular Volume 88.6 Mean Corpuscular Hemoglobin 28.6 L Mean Corpuscular Hemoglobin Concent 32.2 Red Cell Distribution Width 15.1 H Platelet Count 100 #L Mean Platelet Volume Neutrophils % 41.0 Band Neutrophils % 31.0 H Lymphocytes % 13.0 L Monocytes % 11.0 Eosinophils % Metamyelocytes % 3.0 H Myelocytes % 1.0 H Neutrophils # 15.4 H Lymphocytes # 4.9 H Monocytes # 4.1 H Eosinophils # Metamyelocytes # 1.1 Myelocytes # 0.4 Sodium Level 135 Potassium Level 3.5 Chloride Level 101 Carbon Dioxide Level 28 Anion Gap 10 Blood Urea Nitrogen 16 Creatinine 0.94 Glucose Level 104 Calcium Level 9.9 Total Bilirubin 0.5 Direct Bilirubin 0.00 Indirect Bilirubin 0.5 Aspartate Amino Transf (AST/SGOT) 30 Alanine Aminotransferase (ALT/SGPT) 20 Alkaline Phosphatase 57 Total Protein 8.5 H Albumin 4.2 Globulin 4.30 H Albumin/Globulin Ratio 0.97 Test 12/17/16 12:44 12/17/16 17:21 Bedside Glucose 91 122 Medications Medications Current Medications Acetaminophen (Tylenol Tab) 650 mg Q6H PRN PO PAIN LEVEL 1-3 OR FEVER Last administered on 12/15/16 22:50; Admin Dose 650 MG; Start 12/15/16 at 19:30 Docusate Sodium (Colace) 100 mg Q12H PRN PO CONSTIPATION; Start 12/15/16 at 19: 30 Fenofibrate (Tricor) 48 mg DAILY PO Last administered on 12/17/16 08:56; Admin Dose 48 MG; Start 12/16/16 at 09:00 Miscellaneous Information 10 mg DAILY PO ; Start 12/16/16 at 09:00; Status UNV Miscellaneous Information 1 ea NOTE XX ; Start 12/16/16 at 05:00 Glucose (Glutose) 15 gm Q15M PRN PO DECREASED GLUCOSE; Start 12/16/16 at 05:00 Glucose (Glutose) 22.5 gm Q15M PRN PO DECREASED GLUCOSE; Start 12/16/16 at 05: 00 Dextrose (D50w Syringe) 25 ml Q15M PRN IV DECREASED GLUCOSE; Start 12/16/16 at 05:00 Dextrose (D50w Syringe) 50 ml Q15M PRN IV DECREASED GLUCOSE; Start 12/16/16 at 05:00 Glucagon (Glucagen) 1 mg Q15M PRN IM DECREASED GLUCOSE; Start 12/16/16 at 05:00 Glucose (Glutose) 15 gm Q15M PRN BUCCAL DECREASED GLUCOSE; Start 12/16/16 at 05 :00 Famotidine (Pepcid) 20 mg DAILY PO Last administered on 12/17/16t 08:56; Admin Dose 20 MG; Start 12/16/16 at 09:00 Miscellaneous Information (*Order Clarification Bulletin) REVLIMID IS NON- FORMULARY MED, PLE... Q8H XX ; Start 12/16/16 at 08:00 Copies To: CC: FRANCHESKA ROBISON MD, STANLEY H MD Dec 17, 2016 20:32
[2016-12-18] VITALS (7 sets, daily range): BP systolic 118–120; BP diastolic 60–71; PULSE 85–90; RESP 18–19
--- NOTE | 2016-12-18 07:47 | PN ---
Date/Time of Note Date/Time of Note DATE: 12/18/16 TIME: 07:41 Assessment/Plan VTE Prophylaxis VTE Prophylaxis Intervention: SCD's Lines/Catheters IV C[facility] Type ([facility] Saline Lock Urinary Cath still in place: No Assessment/Plan Chief Complaint/Hosp Course LUQ pain. Anemia, leukocytosis and fever. 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 Feel that if pt's Hgb is stable that he may be discharged. If the leukocytosis does not revert back to usual levels will have to assume that pt underlying MDS is evolving. May require a repeat marrow. Subjective 24 Hr Interval Summary Free Text/Dictation Pt states that he is feeling better. He is no longer experiencing LUQ pain and has had no fevers or chills. Exam/Review of Systems Vital Signs Vitals Vital Signs Date Time Temp Pulse Resp B/P Pulse Ox O2 Delivery O2 Flow Rate FiO2 12/18/16 07:18 98.6 89 19 120/69 94 12/17/16 15:51 Room Air 12/17/16 07:48 2.0 Intake and Output 12/17/16 12/17/16 12/18/16 15:00 23:00 07:00 Intake Total 300 ml Balance 300 ml Exam Constitutional: alert, oriented, well developed Head: atraumatic, normocephalic Eyes: EOMI, PERRL, nl conjunctiva, nl sclera ENMT: mucosa pink and moist, nl external ears & nose, nl lips & teeth Neck: non-tender, supple Respiratory: clear to auscultation, normal air movement Cardiovascular: nl pulses, regular rate and rhythm Gastrointestinal: non-tender, soft, splenomegaly (Spleen is palpable 3 cm below the LCM in MCL.) Musculoskeletal: nl extremities to inspection, nl gait and stance Extremities: normal pulses Neurological: GAS M[employer] INSPECTOR II-XII intact, nl mental status Skin: nl turgor, other (? "bronzing" of skin) Results Result Diagram: 12/17/16 0750 12/17/16 0750 Results 24 hrs Laboratory Tests Test 12/17/16 07:50 12/17/16 08:08 12/17/16 12:44 12/17/16 17:21 White Blood Count 37.5 H Red Blood Count 3.43 #L Hemoglobin 9.8 #L Hematocrit 30.4 #L Mean Corpuscular Volume 88.6 Mean Corpuscular Hemoglobin 28.6 L Mean Corpuscular Hemoglobin Concent 32.2 Red Cell Distribution Width 15.1 H Platelet Count 100 #L Mean Platelet Volume Neutrophils % 41.0 Band Neutrophils % 31.0 H Lymphocytes % 13.0 L Monocytes % 11.0 Eosinophils % Metamyelocytes % 3.0 H Myelocytes % 1.0 H Neutrophils # 15.4 H Lymphocytes # 4.9 H Monocytes # 4.1 H Eosinophils # Metamyelocytes # 1.1 Myelocytes # 0.4 Sodium Level 135 Potassium Level 3.5 Chloride Level 101 Carbon Dioxide Level 28 Anion Gap 10 Blood Urea Nitrogen 16 Creatinine 0.94 Glucose Level 104 Calcium Level 9.9 Total Bilirubin 0.5 Direct Bilirubin 0.00 Indirect Bilirubin 0.5 Aspartate Amino Transf (AST/SGOT) 30 Alanine Aminotransferase (ALT/SGPT) 20 Alkaline Phosphatase 57 Total Protein 8.5 H Albumin 4.2 Globulin 4.30 H Albumin/Globulin Ratio 0.97 Bedside Glucose 114 91 122 Test 12/17/16 21:38 12/18/16 06:38 Bedside Glucose 121 Lab Scanned Report BLOOD TRANSFUSION Medications Medications Current Medications Acetaminophen (Tylenol Tab) 650 mg Q6H PRN PO PAIN LEVEL 1-3 OR FEVER Last administered on 12/15/16 22:50; Admin Dose 650 MG; Start 12/15/16 at 19:30 Docusate Sodium (Colace) 100 mg Q12H PRN PO CONSTIPATION; Start 12/15/16 at 19: 30 Fenofibrate (Tricor) 48 mg DAILY PO Last administered on 12/17/16 08:56; Admin Dose 48 MG; Start 12/16/16 at 09:00 Miscellaneous Information 10 mg DAILY PO ; Start 12/16/16 at 09:00; Status UNV Miscellaneous Information 1 ea NOTE XX ; Start 12/16/16 at 05:00 Glucose (Glutose) 15 gm Q15M PRN PO DECREASED GLUCOSE; Start 12/16/16 at 05:00 Glucose (Glutose) 22.5 gm Q15M PRN PO DECREASED GLUCOSE; Start 12/16/16 at 05: 00 Dextrose (D50w Syringe) 25 ml Q15M PRN IV DECREASED GLUCOSE; Start 12/16/16 at 05:00 Dextrose (D50w Syringe) 50 ml Q15M PRN IV DECREASED GLUCOSE; Start 12/16/16 at 05:00 Glucagon (Glucagen) 1 mg Q15M PRN IM DECREASED GLUCOSE; Start 12/16/16 at 05:00 Glucose (Glutose) 15 gm Q15M PRN BUCCAL DECREASED GLUCOSE; Start 12/16/16 at 05 :00 Famotidine (Pepcid) 20 mg DAILY PO Last administered on 12/17/16t 08:56; Admin Dose 20 MG; Start 12/16/16 at 09:00 Miscellaneous Information (*Order Clarification Bulletin) REVLIMID IS NON- FORMULARY MED, PLE... Q8H XX ; Start 12/16/16 at 08:00 Copies To: CC: FRANCHESKA ROBISON MD, STANLEY H MD Dec 18, 2016 07:47
[2016-12-18] MEDS: [UNRECOGNIZED DRUG - REMARK] XX SCH ×2 (08:00)
[2016-12-18] MEDS: ACCU-CHEK XX SCH ×2 (08:08→12:09)
[2016-12-18] MEDS: FAMOTIDINE 20 MG TAB PO SCH (08:30)
[2016-12-18] MEDS: metFORMIN 500 MG TAB PO SCH (08:30)
[2016-12-18] MEDS: FENOFIBRATE 48 MG TAB PO SCH (08:30)
[2016-12-18 08:50] LABS: ADD SCAN DIFF NO
[2016-12-18 09:04] LABS: ABNORMAL IP MESSAGE 1; HEMATOCRIT 28.1 % (42.0-52.0); HEMOGLOBIN 9.2 g/dl (14.0-18.0); MEAN CORPUSCULAR HEMOGLOBIN 29.3 pg (29.0-33.0); MEAN CORPUSCULAR HGB CONC 32.7 g/dl (32.0-37.0); MEAN CORPUSCULAR VOLUME 89.5 fl (82.0-101.0); PLATELET COUNT 102 10^3/UL (140-415); RED BLOOD COUNT 3.14 10^6/ul (4.70-6.10); RED CELL DISTRIBUTION WIDTH 14.8 % (11.5-14.5); WHITE BLOOD COUNT 33.3 10^3/ul (4.8-10.8)
[2016-12-18 09:27] LABS: CALCIUM 9.1 mg/dl (8.4-10.2); CREATININE 0.87 mg/dl (0.61-1.24); POTASSIUM 3.8 mmol/L (3.5-5.1)
[2016-12-18 11:05] LABS: LYMPHOCYTES # 7.7 10^3/ul (0.8-2.9); MONOCYTE # 1.3 10^3/ul (0.3-0.9); MYELOCYTES # 0.3; NEUTROPHIL # 16.3 10^3/ul (1.6-7.5)
[2016-12-18] MEDS ORDERED: REVLIMID PO (12:48)
[2016-12-18] MEDS ORDERED: PANT40TA4 PO (12:48)
[2016-12-18] MEDS ORDERED: FENO48TA4 PO (12:48)
[2016-12-18] MEDS ORDERED: ACET325T40 PO (12:48)
[2016-12-18] MEDS ORDERED: Accu-Chek XX (12:48)
[2016-12-18] MEDS ORDERED: METF500T4 PO (12:48)
--- NOTE | 2016-12-18 12:50 | PDOCDIS ---
Discharge Instructions CONDITION Patient Condition: Fair HOME CARE INSTRUCTIONS: Diet Instructions: RegularSpecial Diet: REGULAR ACTIVITY: Activity Restrictions: No Restrictions FOLLOW UP/APPOINTMENTS Follow-up Plan follow up with dr hawthorne, call for appointment i will see you in one month FRANCHESKA ROBISON MD Dec 18, 2016 12:50
--- NOTE | 2016-12-18 12:53 | PN ---
Date/Time of Note Date/Time of Note DATE: 12/18/16 TIME: 12:50 Assessment/Plan VTE Prophylaxis VTE Prophylaxis Intervention: ambulation (dc iv lines for dc) Lines/Catheters IV Catheter Type (from Nrs): Saline Lock Urinary Cath still in place: No Subjective 24 Hr Interval Summary Free Text/Dictation ok for dc with op follow up hgb is 9.2, wbc still 30k or so possible leuk transformation, will observe much improved symptomatically, ok to return home with usual activity diabetes is in good control Exam/Review of Systems Vital Signs Vitals Vital Signs Date Time Temp Pulse Resp B/P Pulse Ox O2 Delivery O2 Flow Rate FiO2 12/18/16 12:10 90 12/18/16 11:19 97.8 19 118/71 93 12/17/16 15:51 Room Air 12/17/16 07:48 2.0 Intake and Output 12/17/16 12/17/16 12/18/16 14:59 22:59 06:59 Intake Total 300 ml Balance 300 ml Results Result Diagram: 12/18/16 0721 12/18/16 0721 Results 24 hrs Laboratory Tests Test 12/17/16 17:21 12/17/16 21:38 12/18/16 06:38 12/18/16 07:21 Bedside Glucose 122 121 Lab Scanned Report BLOOD TRANSFUSION White Blood Count 33.3 H Red Blood Count 3.14 L Hemoglobin 9.2 L Hematocrit 28.1 L Mean Corpuscular Volume 89.5 Mean Corpuscular Hemoglobin 29.3 Mean Corpuscular Hemoglobin Concent 32.7 Red Cell Distribution Width 14.8 H Platelet Count 102 L Mean Platelet Volume Neutrophils % 49.0 Band Neutrophils % 22.0 H Lymphocytes % 23.0 Monocytes % 4.0 Eosinophils % Metamyelocytes % 1.0 H Myelocytes % 1.0 H Neutrophils # 16.3 H Lymphocytes # 7.7 H Monocytes # 1.3 H Eosinophils # Metamyelocytes # 0.3 Myelocytes # 0.3 Differential Comment MANUAL DIFF Large Platelets FEW Giant Platelets FEW Sodium Level 130 L Potassium Level 3.8 Chloride Level 103 Carbon Dioxide Level 24 Anion Gap 7 L Blood Urea Nitrogen 16 Creatinine 0.87 Glucose Level 102 Calcium Level 9.1 Test 12/18/16 08:01 12/18/16 11:58 Bedside Glucose 119 109 Medications Medications Current Medications Acetaminophen (Tylenol Tab) 650 mg Q6H PRN PO PAIN LEVEL 1-3 OR FEVER Last administered on 12/15/16 22:50; Admin Dose 650 MG; Start 12/15/16 at 19:30 Docusate Sodium (Colace) 100 mg Q12H PRN PO CONSTIPATION; Start 12/15/16 at 19: 30 Fenofibrate (Tricor) 48 mg DAILY PO Last administered on 12/18/16 08:30; Admin Dose 48 MG; Start 12/16/16 at 09:00 Miscellaneous Information 10 mg DAILY PO ; Start 12/16/16 at 09:00; Status UNV Miscellaneous Information 1 ea NOTE XX ; Start 12/16/16 at 05:00 Glucose (Glutose) 15 gm Q15M PRN PO DECREASED GLUCOSE; Start 12/16/16 at 05:00 Glucose (Glutose) 22.5 gm Q15M PRN PO DECREASED GLUCOSE; Start 12/16/16 at 05: 00 Dextrose (D50w Syringe) 25 ml Q15M PRN IV DECREASED GLUCOSE; Start 12/16/16 at 05:00 Dextrose (D50w Syringe) 50 ml Q15M PRN IV DECREASED GLUCOSE; Start 12/16/16 at 05:00 Glucagon (Glucagen) 1 mg Q15M PRN IM DECREASED GLUCOSE; Start 12/16/16 at 05:00 Glucose (Glutose) 15 gm Q15M PRN BUCCAL DECREASED GLUCOSE; Start 12/16/16 at 05 :00 Famotidine (Pepcid) 20 mg DAILY PO Last administered on 12/18/16 08:30; Admin Dose 20 MG; Start 12/16/16 at 09:00 Miscellaneous Information (*Order Clarification Bulletin) REVLIMID IS NON- FORMULARY MED, PLE... Q8H XX ; Start 12/16/16 at 08:00 FRANCHESKA ROBISON MD Dec 18, 2016 12:52
== END 2016-12-18 13:50 | disposition home or self-care (01) | DRG 816 ==
LOC: E/R 12:52 → TEL 19:03
PROVIDERS: ADMIT Internal Medicine; ATTEND Internal Medicine
PROC: 30233N1 Transfusion of Nonautologous Red Blood Cells into Peripheral Vein, Percutaneous Approach (ICD-10-PCS; principal; 2016-12-16)
DX: D73.5 Infarction of spleen (principal); D56.1 Beta thalassemia; E83.111 Hemochromatosis due to repeated red blood cell transfusions; D46.1 Refractory anemia with ring sideroblasts; D46.9 Myelodysplastic syndrome, unspecified; K21.9 Gastro-esophageal reflux disease without esophagitis; M10.9 Gout, unspecified
CPT/HCPCS: 36415; 36430; 71010; 71100; 74177; 80048; 80053; 81001; 82962; 83605; 83615; 84560; 85025; 86644; 86850; 86900; 86901; 86920; 86945; 87040; 87086; 96374; 96375; J0692; J0696; J1720; J2270; J2405; J3370; J7030; P9016; Q9967

== ENCOUNTER 2017-01-15 13:35 | Inpatient (IN) | payer MEDICARE, BC ==
[~2017-01-15] VITALS: Ht 170.2 cm; Wt 67.0 kg
[~2017-01-15 13:35] MED LIST changes: +ACET325T40 PO; +Accu-Chek XX; -FENO48TA PO; +FENO48TA4 PO; -GLEE400 PO; -METF500T PO; +METF500T4 PO
[2017-01-15 16:05] LABS: ABNORMAL IP MESSAGE 1; HEMATOCRIT 15.3 % (42.0-52.0); MEAN CORPUSCULAR HEMOGLOBIN 28.4 pg (29.0-33.0); MEAN CORPUSCULAR HGB CONC 31.4 g/dl (32.0-37.0); MEAN CORPUSCULAR VOLUME 90.5 fl (82.0-101.0); POSITIVE DIFF @See below; RED BLOOD COUNT 1.69 10^6/ul (4.70-6.10); RED CELL DISTRIBUTION WIDTH 16.1 % (11.5-14.5); WHITE BLOOD COUNT 54.5 10^3/ul (4.8-10.8)
[2017-01-15 16:09] LABS: HEMOGLOBIN 4.8 g/dl (14.0-18.0)
[2017-01-15 16:26] LABS: INR 1.7; PROTIME 20.1 Sec (12.2-14.2); PT RATIO 1.6
[2017-01-15 16:27] LABS: PARTIAL THROMBOPLASTIN TIME 46.9 Sec (25.0-35.0)
--- NOTE | 2017-01-15 16:27 | RADRPT ---
PROCEDURE: XR Chest. CLINICAL INDICATION: SOB TECHNIQUE: Single frontal view of the chest was obtained COMPARISON: Chest x-ray 12/15/2016 FINDINGS: The cardiac silhouette remains mildly enlarged. There are atherosclerotic calcifications of the aorta. No pneumothorax is identified. There is a persistent ill-defined opacity at the left lung base which may represent atelectasis or c onsolidation. There is improved aeration at the right lung base. A small left pleural effusion is suggested. No significant right pleural effusion. Mild pulmonary vascular congestion persists. There are degenerative changes of the spine per IMPRESSION: 1. Persistent ill-defined opacity at the left lung base which may represent atelectasis or consolida tion. 2. Stable mild pulmonary vascular congestion. 3. Probable small left pleural effusion. 4. Mild cardiomegaly. 5. Thoracic aortic atherosclerotic disease. RPTAT: EE Physician Bess Date Time Electronically viewed and signed by Physician Bess on 01/15/2017 16:27 IVELISSE/
[2017-01-15 16:32] LABS: ALANINE AMINOTRANSFERASE 43 IU/L (13-69); ALBUMIN 3.7 g/dl (3.3-4.9); ALKALINE PHOSPHATASE 53 IU/L (42-121); ANION GAP 17 (8-16); ASPARTATE AMINO TRANSFERASE 20 IU/L (15-46); BILIRUBIN,INDIRECT 0.3 mg/dl (0-1.1); BILIRUBIN,TOTAL 0.3 mg/dl (0.2-1.3); BLOOD UREA NITROGEN 18 mg/dl (7-20); CALCIUM 9.2 mg/dl (8.4-10.2); CARBON DIOXIDE 23 mmol/L (21-31); CHLORIDE 105 mmol/L (97-110); CREATININE 1.01 mg/dl (0.61-1.24); GLUCOSE 93 mg/dl (70-220); SODIUM 141 mmol/L (135-144); TOTAL PROTEIN 7.8 g/dl (6.1-8.1)
[2017-01-15 16:43] LABS: B-TYPE NATRIURETIC PEPTIDE 1220 PG/ML (0-125)
[2017-01-15 16:44] LABS: TROPONIN-I < 0.012 ng/ml (0.00-0.12)
[2017-01-15 17:08] LABS: BLAST% (M) 1 % (0-0); BLASTOCYTES #M 0.3 10^3/ul (0.0-0.0); LYMPHOCYTES # 13.1 10^3/ul (0.8-2.9); METAMYELOCYTES %M 1 % (0-0); MONOCYTES % (M) 22 % (0-11); NEUTROPHIL # 22.9 10^3/ul (1.6-7.5); PROMYELOCYTES #M 1 # (0-0); PROMYELOCYTES % (M) 2 % (0-0)
[2017-01-15 17:10] LABS: HYPOCHROMASIA 2+ (0-0)
[2017-01-15 17:13] LABS: PATH REVIEW? YES
[2017-01-15 17:15] LABS: PLATELET COUNT 223 10^3/UL (140-415)
--- NOTE | 2017-01-15 18:21 | ERA ---
ER Documentation Chief Complaint Date/Time DATE: 01/15/17 TIME: 18:06 Chief Complaint here due sob, pale HPI This is a 71-year-old male with a history of myelodysplastic syndrome and recurrent chronic anemia is here for generalized weakness shortness of breath with exertion over the past 3 days is gradually getting worse in the past 2 weeks. He denies any bloody stools black stools no nausea vomiting no fever no chest pain shortness of breath cough. The patient was admitted here last month with a hemoglobin in the mid 6 range elevated white blood count. ROS All systems reviewed and are negative except as per history of present illness. Medications Home Meds Active Scripts Acetaminophen (MAPAP) 325 Mg Tablet, 650 MG PO Q6H Y for PAIN LEVEL 1-3 OR FEVER , #60 TAB ffor prn use, has at home Prov:FRANCHESKA ROBISON MD 12/18/16 [Revlimid] No Conflict Check, 10 MG PO DAILY for 90 Days, #90 has at home Prov:FRANCHESKA ROBISON MD 12/18/16 Metformin Hcl* (Metformin Hcl*) 500 Mg Tablet, 500 MG PO WITH BREAKFAST DINNE, # 60 TAB bid has at home Prov:FRANCHESKA ROBISON MD 12/18/16 Fenofibrate Nanocrystallized* (Fenofibrate*) 48 Mg Tablet, 48 MG PO DAILY for 90 Days, #90 TAB dhe has meds at home, no new rx needed Prov:FRANCHESKA ROBISON MD 12/18/16 Discontinued Scripts [Accu-Chek] 1 EA EA No Conflict Check, 1 EA XX AC MEALS AND BEDTIME for 90 Days , #90 at this timehas hgm at home and does not need rx Prov:FRANCHESKA ROBISON MD 12/18/16 Pantoprazole* (Pantoprazole*) 40 Mg Tablet.dr, 40 MG PO AC BREAKFAST for 90 Days , #90 TAB has at home Prov:FRANCHESKA ROBISON MD 12/18/16 Allergies Allergies: Coded Allergies: No Known Allergies (Verified Allergy, Unknown, 01/15/17) PMhx/Soc History of Surgery: No Anesthesia Reaction: No Hx Neurological Disorder: No Hx Respiratory Disorders: No Hx Cardiac Disorders: Yes (hyperlipidemia) Hx Psychiatric Problems: No Hx Miscellaneous Medical Probl: Yes (myelodysplastic syndrome; blood tx; dm2, gout, gerd) Hx Alcohol Use: No Hx Substance Use: No Hx Tobacco Use: No Smoking Status: Never smoker FmHx Family History: No coronary disease Physical Exam Vitals Vital Signs Date Time Temp Pulse Resp B/P Pulse Ox O2 Delivery O2 Flow Rate FiO2 01/15/17 13:39 98.1 104 18 107/62 99 Physical Exam Const: [Well-developed, cachectic Head: Atraumatic, normocephalic Eyes: Normal Conjunctiva, PERRLA, EOMI, normal sclera, no nystagmus ENT: Normal External Ears, Nose and Mouth, moist mucus membranes. Neck: Full range of motion. No meningismus, no lymphadenopathy. Resp: Clear to auscultation bilaterally, no wheezing, rhonchi, rales Cardio: Regular rate and rhythm, no murmurs, S1 S2 present Abd: Soft, non tender x 4, non distended. Normal bowel sounds, no guarding or rebound, no pulsitile abdominal masses or bruits Skin: No petechiae or rashes, no ecchymosis , no maculopapular rash Back: No midline or flank tenderness Ext: No cyanosis, or edema, FROM x 4, normal inspection, neurovascularly intact x 4 Neur: Awake and alert, STR 5/5 x 4, sensation intact x 4, no focal findings, cerebellum intact Psych: Normal Mood and Affect Result Diagram: 01/15/17 1555 01/15/17 1555 Results 24 hrs Laboratory Tests Test 01/15/17 15:55 White Blood Count 54.510^3/ul Red Blood Count 1.6910^6/ul Hemoglobin 4.8g/dl Hematocrit 15.3% Mean Corpuscular Volume 90.5fl Mean Corpuscular Hemoglobin 28.4pg Mean Corpuscular Hemoglobin Concent 31.4g/dl Red Cell Distribution Width 16.1% Platelet Count 91277^3/UL Mean Platelet Volume fl Neutrophils % % Segmented Neutrophils % (Manual) 42% Band Neutrophils % (Manual) 4% Lymphocytes % % Lymphocytes % (Manual) 24% Monocytes % % Monocytes % (Manual) 22% Eosinophils % % Basophils % % Metamyelocytes % (manual) 1% Myelocytes % (Manual) 4.010^3/ul Promyelocytes % (Manual) 2% Blast Cells % (Manual) 1% Nucleated Red Blood Cells % 0.0/100WBC Neutrophils # 22.910^3/ul Neutrophils # (Manual) 24.010^3/ul Band Neutrophils # 2.110^3/ul Absolute Lymphocytes (Manual) 13.010^3/ul Lymphocytes # 13.110^3/ul Monocytes # 12.010^3/ul Absolute Monocytes (Manual) 11.910^3/ul Eosinophils # 10^3/ul Basophils # 10^3/ul Metamyelocytes # 0.510^3/ul Myelocytes # 2.210^3/ul Promyelocytes # 1# Blastocytes # 0.310^3/ul Nucleated Red Blood Cells # 10^3/ul Pathologist Review (Hematology) YES Hypochromasia 2+ Prothrombin Time 20.1Sec Prothrombin Time Ratio 1.6 INR International Normalized Ratio 1.70 Activated Partial Thromboplast Time 46.9Sec Sodium Level 141mmol/L Potassium Level 4.0mmol/L Chloride Level 105mmol/L Carbon Dioxide Level 23mmol/L Anion Gap 17 Blood Urea Nitrogen 18mg/dl Creatinine 1.01mg/dl Glucose Level 93mg/dl Calcium Level 9.2mg/dl Total Bilirubin 0.3mg/dl Direct Bilirubin 0.00mg/dl Indirect Bilirubin 0.3mg/dl Aspartate Amino Transf (AST/SGOT) 20IU/L Alanine Aminotransferase (ALT/SGPT) 43IU/L Alkaline Phosphatase 53IU/L Troponin I < 0.012ng/ml B-Type Natriuretic Peptide 1220PG/ML Total Protein 7.8g/dl Albumin 3.7g/dl Globulin 4.10g/dl Albumin/Globulin Ratio 0.90 Procedures/MDM PROCEDURE: XR Chest. CLINICAL INDICATION: SOB TECHNIQUE: Single frontal view of the chest was obtained COMPARISON: Chest x-ray 12/15/2016 FINDINGS: The cardiac silhouette remains mildly enlarged. There are atherosclerotic calcifications of the aorta. No pneumothorax is identified. There is a persistent ill-defined opacity at the left lung base which may represent atelectasis or consolidation. There is improved aeration at the right lung base. A small left pleural effusion is suggested. No significant right pleural effusion. Mild pulmonary vascular congestion persists. There are degenerative changes of the spine per IMPRESSION: 1. Persistent ill-defined opacity at the left lung base which may represent atelectasis or consolidation. 2. Stable mild pulmonary vascular congestion. 3. Probable small left pleural effusion. 4. Mild cardiomegaly. 5. Thoracic aortic atherosclerotic disease. RPTAT: EE Irina Lu Physician Date Time Electronically viewed and signed by Irina Lu Physician on 01/15/2017 16: 27 RC/ CC: BRITTANI CONTRERAS DO Patient was typed and crossed 2 units of packed red blood cells be transfused. The patient has a very elevated white blood count. The patient's likely converting into a leukemic process Spoke with his doctor Dr. Monahan who is on board as a consult We will admit to his primary Critical Care Time: 30 minutes Treatments/Evaluations: Close monitoring and treatment of unstable vital signs, cardiorespiratory, and neurologic status, while maintaining tight balance of fluid, respiratory, and cardiac interventions. This time includes discussing the case with the patient and the patient's family. This time does not include all procedures stated elsewhere in this record. This time also includes reviewing old records, labs and radiological studies. This time includes examining and re-examining the patient. Additionally, this time also includes arranging care with admitting and consulting physicians. Departure Diagnosis: Primary Impression: Severe anemia Condition: Stable BRITTANI CONTRERAS DO Jan 15, 2017 18:20
[2017-01-15] MEDS ORDERED: ONDANSETRON 4 MG INJ IV PRN ×2 (18:30)
[2017-01-15] MEDS ORDERED: MAGNESIUM HYDROXIDE 30ML CUP PO PRN (18:30)
[2017-01-15] MEDS ORDERED: ACETAMINOPHEN 325 MG TAB PO PRN ×3 (18:30→19:00)
[2017-01-15] MEDS ORDERED: ZOLPIDEM 5 MG TAB PO PRN (18:30)
[2017-01-15] MEDS ORDERED: HYDROCODONE/APAP (5/325) TAB PO PRN ×2 (18:30)
[2017-01-15] MEDS ORDERED: NACL 0.9% 3 ML SYG IV SCH (18:30)
[2017-01-15] MEDS ORDERED: DIPHENHYDRAMINE 50 MG INJ IV SCH (19:00)
[2017-01-15] MEDS ORDERED: SOD CHLORIDE 0.9% 1,000 ML IV STA (19:22)
[2017-01-15 23:30] VITALS: TEMP 98.8
[2017-01-15 23:51] VITALS: PULSE 93
[2017-01-16] VITALS (9 sets, daily range): BP systolic 105–125; BP diastolic 56–67; PULSE 91–110; RESP 18–20; Ht 170.2 cm; Wt 67.0 kg
[2017-01-16] MEDS ORDERED: PANTOPRAZOLE 40 MG INJ IV SCH (06:00)
[2017-01-16 07:49] LABS: ALBUMIN 3.2 g/dl (3.3-4.9); ALBUMIN/GLOBULIN RATIO 0.82; BILIRUBIN,INDIRECT 1.1 mg/dl (0-1.1); BILIRUBIN,TOTAL 1.1 mg/dl (0.2-1.3); CALCIUM 8.9 mg/dl (8.4-10.2); CREATININE 0.9 mg/dl (0.61-1.24); POTASSIUM 3.9 mmol/L (3.5-5.1); TOTAL PROTEIN 7.1 g/dl (6.1-8.1)
[2017-01-16] MEDS ORDERED: REVLIMID 10 MG PO SCH (09:00)
[2017-01-16] MEDS ORDERED: FENOFIBRATE 48 MG TAB PO SCH (09:00)
[2017-01-16] MEDS: metFORMIN 500 MG TAB PO SCH ×2 (09:42→17:28)
[2017-01-16] MEDS ORDERED: LENALIDOMIDE XX SCH (13:00)
[2017-01-16] MEDS ORDERED: [UNRECOGNIZED DRUG - OTHER] XX SCH (13:00)
[2017-01-16] MEDS ORDERED: GLUCAGON 1 MG INJ IM PRN (14:30)
[2017-01-16] MEDS ORDERED: GLUCOSE GEL 15 GRAM TUBE PO PRN ×2 (14:30)
[2017-01-16] MEDS ORDERED: DEXTROSE 50% 50 ML SYRINGE IV PRN ×2 (14:30)
[2017-01-16] MEDS ORDERED: GLUCOSE GEL 15 GRAM TUBE BUCCAL PRN (14:30)
--- NOTE | 2017-01-16 14:56 | PDOCDIS ---
Discharge Instructions CONDITION Patient Condition: Stable HOME CARE INSTRUCTIONS: Diet Instructions: Regular FOLLOW UP/APPOINTMENTS Follow-up Plan Follow up with Dr. Monahan Follow up with RASHIDA Olivares MD Jan 16, 2017 14:56
[2017-01-16 15:31] LABS: ABNORMAL IP MESSAGE 1; HEMATOCRIT 23.5 % (42.0-52.0); HEMOGLOBIN 7.5 g/dl (14.0-18.0); MEAN CORPUSCULAR HEMOGLOBIN 27.6 pg (29.0-33.0); MEAN CORPUSCULAR HGB CONC 31.9 g/dl (32.0-37.0); MEAN CORPUSCULAR VOLUME 86.4 fl (82.0-101.0); POSITIVE DIFF @See below; RED BLOOD COUNT 2.72 10^6/ul (4.70-6.10); RED CELL DISTRIBUTION WIDTH 16.5 % (11.5-14.5); WHITE BLOOD COUNT 69.6 10^3/ul (4.8-10.8)
[2017-01-16 19:49] LABS: BLAST% (M) 15 % (0-0); BLASTOCYTES #M 7.2 10^3/ul (0.0-0.0); LYMPHOCYTES # 9.7 10^3/ul (0.8-2.9); METAMYELOCYTES %M 1 % (0-0); MONOCYTE # 11.1 10^3/ul (0.3-0.9); MONOCYTES % (M) 16 % (0-11); NEUTROPHIL # 35.5 10^3/ul (1.6-7.5)
[2017-01-16 19:51] LABS: PLATELET COUNT 150 10^3/UL (140-415)
[2017-01-17] MEDS ORDERED: PANTOPRAZOLE (EC) 40 MG TAB PO SCH (06:00)
--- NOTE | 2017-01-22 18:17 | DS ---
Date/Time of Note Date/Time of Note DATE: 01/16/17 TIME: 18:10 Late entry Discharge Summary Admission/Discharge Info Admit Date/Time Jan 15, 2017 at 18:05 Discharge Date/Time Jan 16, 2017 at 18:56 Discharge Diagnosis Myelodysplastic Anemia Patient Condition: Stable Consults Vinod Monahan oncology Procedures Blood transfusion x 2 PRBC Hx of Present Illness 71 year old man with history of well known to our practice presents to [facility] with extreme fatigue and shortness of breath. Found to have a hemoglobin of 4 and hematocrit of 15 with an increasing leukocytosis suggesting leukemic transformation. Admitted for blood transfusion. Hospital Course Patient was admitted. Transfused 2 units PRBC with rise in hemoglobin up to 7 and hematocrit up to 23. Patient with significant improvement in symptoms. Decreased fatigue and no shortness of breath. Clinically stable for discharge home to follow up with Dr. Monahan in the coming week. Home Meds Active Scripts Acetaminophen (MAPAP) 325 Mg Tablet, 650 MG PO Q6H Y for PAIN LEVEL 1-3 OR FEVER , #60 TAB ffor prn use, has at home Prov:FRANCHESKA TREVINO MD 12/18/16 [Revlimid] No Conflict Check, 10 MG PO DAILY for 90 Days, #90 has at home Prov:FRANCHESKA TREVINO MD 12/18/16 Metformin Hcl* (Metformin Hcl*) 500 Mg Tablet, 500 MG PO WITH BREAKFAST DINNE, # 60 TAB bid has at home Prov:FRANCHESKA TREVINO MD 12/18/16 Fenofibrate Nanocrystallized* (Fenofibrate*) 48 Mg Tablet, 48 MG PO DAILY for 90 Days, #90 TAB dhe has meds at home, no new rx needed Prov:FRANCHESKA TREVINO MD 12/18/16 Discontinued Scripts [Accu-Chek] 1 EA EA No Conflict Check, 1 EA XX AC MEALS AND BEDTIME for 90 Days , #90 at this timehas hgm at home and does not need rx Prov:FRANCHESKA TREVINO MD 12/18/16 Pantoprazole* (Pantoprazole*) 40 Mg Tablet.dr, 40 MG PO AC BREAKFAST for 90 Days , #90 TAB has at home Prov:FRANCHESKA TREVINO MD 12/18/16 Follow-up Plan Follow up with Dr. Monahan for possilbe bone marrow biopsy. Primary Care Provider Francheska Trevino MD Time spent on discharge: > 30 minutes RASHIDA VIDAL MD Jan 22, 2017 18:17
--- NOTE | 2017-01-22 18:31 | HP ---
Date/Time of Note Date/Time of Note DATE: 01/16/17 TIME: 12:18 (patient seen) Late entry Assessment/Plan VTE Prophylaxis VTE Prophylaxis Intervention: ambulation Lines/Catheters IV Catheter Type (from Nrsg): Saline Lock Central line still needed: No Urinary Cath still in place: No Assessment/Plan Chief Complaint/Hosp Course Patient was admitted. Transfused 2 units PRBC with rise in hemoglobin up to 7 and hematocrit up to 23. Patient with significant improvement in symptoms. Decreased fatigue and no shortness of breath. Clinically stable for discharge home to follow up with Dr. Monahan in the coming week. 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 Have contacted and spoken to Dr. Monahan, who is his oncologist, and he agrees that if patient's Hb /Hct and symptoms improve patient stable to go home and follow up with him next week. Cont'd Hospitalization Reason: Plan for discharge after transfusion HPI/ROS Admit Date/Time Admit Date/Time Jan 15, 2017 at 18:05 Hx of Present Illness 71 year old man with history of well known to our practice presents to [facility] with extreme fatigue and shortness of breath. Found to have a hemoglobin of 4 and hematocrit of 15 with an increasing leukocytosis suggesting leukemic transformation. Admitted for blood transfusion. ROS Constitutional: fatigue, other (weak) Eyes: no complaints ENT: no complaints Respiratory: shortness of breath Cardiovascular: no complaints Gastrointestinal: no complaints Genitourinary: no complaints Musculoskeletal: no complaints Neurologic: confusion (mild) Endocrine: no complaints Lymphatic: no complaints Psychological: no complaints Immunologic: no complaints PMH/Family/Social Past Medical History Medical History: diabetes, GERD, high cholesterol, other (Myelodisplastic Syndrome with anemia, Gout) Past Surgical History Past Surgical Hx: no surgical history, other (cataract) Family History Significant Family History: no pertinent family hx Social History with 2 sons. Born in [facility]. Parents both . 1 living sister Alcohol Use: none Smoking Status: Never smoker Drug Use: none Exam/Review of Systems Exam Constitutional: alert, other (thin) Psych: confusion (mild) Head: normocephalic Eyes: EOMI, PERRL, nl conjunctiva Neck: non-tender, supple Respiratory: clear to auscultation, normal air movement Cardiovascular: nl pulses, regular rate and rhythm Gastrointestinal: soft Musculoskeletal: nl extremities to inspection Extremities: normal pulses Neurological: nl speech, nl strength Skin: nl turgor, other (pale) Medications Medications pantoprazole 40 mg QD metformin 500 mg BID fenofibrate 145 mg nightly multivitamin RASHIDA VIDAL MD Jan 22, 2017 18:30
== END 2017-01-16 18:56 | disposition home or self-care (01) | DRG 812 ==
LOC: E/R 13:35 → MS4 18:05
PROVIDERS: ADMIT Internal Medicine; ATTEND Internal Medicine
PROC: 30233N1 Transfusion of Nonautologous Red Blood Cells into Peripheral Vein, Percutaneous Approach (ICD-10-PCS; principal; 2017-01-15)
DX: D46.Z Other myelodysplastic syndromes (principal); E11.9 Type 2 diabetes mellitus without complications; E78.5 Hyperlipidemia, unspecified; K21.9 Gastro-esophageal reflux disease without esophagitis; R53.83 Other fatigue; Z87.39 Personal history of other diseases of the musculoskeletal system and connective tissue
CPT/HCPCS: 36415; 36430; 71010; 80053; 82962; 83880; 84484; 85025; 85610; 85730; 86850; 86900; 86901; 86920; 93005; 97162; 97166; C9113; J1200; J7030; P9011

== ENCOUNTER 2017-01-31 07:49 | Inpatient (IN) | payer BC, MEDICARE ==
[~2017-01-31] VITALS: Ht 165.1 cm; Wt 53.0 kg
[~2017-01-31 07:49] MED LIST changes: -Accu-Chek XX; -PANT40TA4 PO
[2017-01-31 07:51] VITALS: Ht 165.1 cm; Wt 53.0 kg
[2017-01-31] MEDS ORDERED: morphine 4 MG/ML VIAL IV STA (08:02)
[2017-01-31] MEDS ORDERED: ONDANSETRON 4 MG INJ IV STA (08:02)
[2017-01-31 08:43] LABS: ABNORMAL IP MESSAGE 1; HEMATOCRIT 22.5 % (42.0-52.0); HEMOGLOBIN 7.1 g/dl (14.0-18.0); MEAN CORPUSCULAR HEMOGLOBIN 27.8 pg (29.0-33.0); MEAN CORPUSCULAR HGB CONC 31.6 g/dl (32.0-37.0); MEAN CORPUSCULAR VOLUME 88.2 fl (82.0-101.0); NUCLEATED RED BLOOD CELLS% 0.1 /100WBC (0.0-0.0); PLATELET COUNT 138 10^3/UL (140-415); POSITIVE DIFF @See below; RED BLOOD COUNT 2.55 10^6/ul (4.70-6.10); RED CELL DISTRIBUTION WIDTH 16.6 % (11.5-14.5); WHITE BLOOD COUNT 139.6 10^3/ul (4.8-10.8)
[2017-01-31 08:55] LABS: INR 1.84; PROTIME 21.4 Sec (12.2-14.2); PT RATIO 1.7
[2017-01-31 08:59] LABS: ALANINE AMINOTRANSFERASE 29 IU/L (13-69); ALBUMIN 3.4 g/dl (3.3-4.9); ALBUMIN/GLOBULIN RATIO 0.79; ALKALINE PHOSPHATASE 71 IU/L (42-121); ANION GAP 15 (8-16); ASPARTATE AMINO TRANSFERASE 31 IU/L (15-46); BILIRUBIN,INDIRECT 0.3 mg/dl (0-1.1); BILIRUBIN,TOTAL 0.3 mg/dl (0.2-1.3); BLOOD UREA NITROGEN 20 mg/dl (7-20); CARBON DIOXIDE 26 mmol/L (21-31); CHLORIDE 102 mmol/L (97-110); CREATININE 0.87 mg/dl (0.61-1.24); GLUCOSE 171 mg/dl (70-220); POTASSIUM 3.7 mmol/L (3.5-5.1); SODIUM 139 mmol/L (135-144); TOTAL PROTEIN 7.7 g/dl (6.1-8.1)
--- NOTE | 2017-01-31 09:07 | RADRPT ---
PROCEDURE: Abdominal Ultrasound (right upper quadrant). CLINICAL INDICATION: Abdominal pain TECHNIQUE: Multiple real-time longitudinal and transverse images of the right upper quadrant of th e abdomen were acquired utilizing a curved array transducer. Images were reviewed on a high-resoluti on PACS workstation. COMPARISON: CT abdomen pelvis 12/15/2016 FINDINGS: The liver is normal in size and echogenicity. No focal masses are identified. There is borderline common bile duct dilatation, within normal limits for a patient of this age. The common bile duct measures 6.8 mm in diameter. Gallstones and sludge are seen within the gallbladder. There is border line gallbladder wall thickening measuring up to 3.2 mm. The visualized portions of the pancreas are unremarkable with obscuration of the tail of the pancrea s. No free fluid is identified. There is no evidence of right hydronephrosis or renal calcification. The right kidney measures 11.3 cm in length. There is a 2 cm cyst in the upper pole of the right kidney. The visualized portions of the aorta and inferior vena cava are within normal limits. IMPRESSION: 1. Gallstones and sludge within the gallbladder. Borderline gallbladder wall thickening. 2. Right renal cyst. 3. Otherwise unremarkable right upper quadrant ultrasound. RPTAT: KK .Abel Green MD, Date Time Electronically viewed and signed by .Abel Green MD, MD on 01/31/2017 09:06 .B/
[2017-01-31 09:12] LABS: TROPONIN-I < 0.012 ng/ml (0.00-0.12)
[2017-01-31] MEDS ORDERED: HYDR500C3 PO (09:31)
[2017-01-31] MEDS ORDERED: FENO145T19 PO (09:32)
[2017-01-31] MEDS ORDERED: MEG40/1 PO (09:34)
[2017-01-31] MEDS ORDERED: METF500T4 PO (09:34)
[2017-01-31] MEDS ORDERED: PANT40TA3 PO (09:34)
--- NOTE | 2017-01-31 10:54 | ERA ---
ER Documentation Chief Complaint Date/Time DATE: 01/31/17 TIME: 10:53 Chief Complaint pt bib family with c/o weakness , last blood transfusion 01/23/17 HPI Patient is a 71-year-old male with diabetes, myelodysplastic syndrome, and anemia who presents with weakness. He is also having abdominal pain and nausea. This is been going on for the past few days. The abdominal pain is diffuse. He denies shortness of breath or bleeding. Upon review of old medical records the patient does have multiple visits to the ER. His primary doctor is Dr. Robison and his oncologist is Dr. Monahan. ROS All systems reviewed and are negative except as per history of present illness. Medications Home Meds Reported Medications Megestrol Acetate* (Megestrol Acetate*) 400 Mg/10 Ml Susp, 400 MG PO BID, ML 01/31/17 Metformin Hcl* (Metformin Hcl*) 500 Mg Tablet, 500 MG PO WITH BREAKFAST DINNE, # 30 TAB 01/31/17 Pantoprazole* (Protonix*) 40 Mg Tablet.dr, 40 MG PO DAILY, TAB 01/31/17 Fenofibrate Nanocrystallized* (Fenofibrate*) 145 Mg Tablet, 145 MG PO DAILY, TAB 01/31/17 Hydroxyurea* (Hydroxyurea*) 500 Mg Capsule, 500 MG PO BID, CAP 01/31/17 Discontinued Scripts Acetaminophen (MAPAP) 325 Mg Tablet, 650 MG PO Q6H Y for PAIN LEVEL 1-3 OR FEVER , #60 TAB ffor prn use, has at home Prov:FRANCHESKA ROBISON MD 12/18/16 [Revlimid] No Conflict Check, 10 MG PO DAILY for 90 Days, #90 has at home Prov:FRANCHESKA ROBISON MD 12/18/16 Metformin Hcl* (Metformin Hcl*) 500 Mg Tablet, 500 MG PO WITH BREAKFAST DINNE, # 60 TAB bid has at home Prov:FRANCHESKA ROBISON MD 12/18/16 Fenofibrate Nanocrystallized* (Fenofibrate*) 48 Mg Tablet, 48 MG PO DAILY for 90 Days, #90 TAB dhe has meds at home, no new rx needed Prov:FRANCHESKA ROBISON MD 12/18/16 Allergies Allergies: Coded Allergies: No Known Allergies (Verified Allergy, Unknown, 01/31/17) PMhx/Soc History of Surgery: No Anesthesia Reaction: No Hx Neurological Disorder: No Hx Respiratory Disorders: No Hx Cardiac Disorders: No Hx Psychiatric Problems: No Hx Miscellaneous Medical Probl: Yes (LEUKIMIA) Hx Alcohol Use: No Hx Substance Use: No Hx Tobacco Use: No Smoking Status: Never smoker FmHx Family History: diabetes Physical Exam Vitals Vital Signs Date Time Temp Pulse Resp B/P Pulse Ox O2 Delivery O2 Flow Rate FiO2 01/31/17 10:39 89 18 122/71 98 Room Air 01/31/17 08:18 Nasal Cannula 2 01/31/17 07:51 98.5 98 16 116/56 98 Physical Exam Const: Mild distress Head: Atraumatic Eyes: Normal Conjunctiva ENT: Normal External Ears, Nose and Mouth. Neck: Full range of motion..~ No meningismus. Resp: Clear to auscultation bilaterally Cardio: Regular rate and rhythm, no murmurs Abd: Soft, diffuse abdominal pain with palpation without rebound or guarding Skin: Pale skin Back: No midline or flank tenderness Ext: No cyanosis, or edema Neur: Awake and alert Psych: Normal Mood and Affect Result Diagram: 01/31/1781901/31/17 08 Results 24 hrs Laboratory Tests Test 01/31/17 08:20 White Blood Count 139.610^3/ul Red Blood Count 2.5510^6/ul Hemoglobin 7.1g/dl Hematocrit 22.5% Mean Corpuscular Volume 88.2fl Mean Corpuscular Hemoglobin 27.8pg Mean Corpuscular Hemoglobin Concent 31.6g/dl Red Cell Distribution Width 16.6% Platelet Count 24714^3/UL Mean Platelet Volume fl Neutrophils % % Lymphocytes % % Monocytes % % Eosinophils % % Basophils % % Nucleated Red Blood Cells % 0.1/100WBC Neutrophils # (Manual) 65.310^3/ul Lymphocytes # 10^3/ul Monocytes # 10^3/ul Eosinophils # 10^3/ul Basophils # 10^3/ul Nucleated Red Blood Cells # 10^3/ul Pathologist Review (Hematology) Prothrombin Time 21.4Sec Prothrombin Time Ratio 1.7 INR International Normalized Ratio 1.84 Activated Partial Thromboplast Time 48.0Sec Path Consult Signing Pathologist ADRIANE BISWAS MD Sodium Level 139mmol/L Potassium Level 3.7mmol/L Chloride Level 102mmol/L Carbon Dioxide Level 26mmol/L Anion Gap 15 Blood Urea Nitrogen 20mg/dl Creatinine 0.87mg/dl Glucose Level 171mg/dl Calcium Level 10.0mg/dl Total Bilirubin 0.3mg/dl Direct Bilirubin 0.00mg/dl Indirect Bilirubin 0.3mg/dl Aspartate Amino Transf (AST/SGOT) 31IU/L Alanine Aminotransferase (ALT/SGPT) 29IU/L Alkaline Phosphatase 71IU/L Troponin I < 0.012ng/ml Total Protein 7.7g/dl Albumin 3.4g/dl Globulin 4.30g/dl Albumin/Globulin Ratio 0.79 Lipase 12U/L Current Medications Medications (Trade) Dose Ordered Sig/Sun Route PRN Reason Start Time Stop Time Status Last Admin Dose Admin Morphine Sulfate (morphine) 4 mg ONCE STAT IV 01/31/17 08:02 01/31/17 08:23 DC 01/31/17 08:27 Ondansetron HCl (Zofran Inj) 4 mg ONCE STAT IV 01/31/17 08:02 01/31/17 08:23 DC 01/31/17 08:27 Ondansetron HCl (Zofran Inj) 4 mg BRIDGE ORDER PRN IV NAUSEA AND/OR VOMITING 01/31/17 11:00 02/01/17 10:59 Acetaminophen (Tylenol Tab) 650 mg ER BRIDGE PRN PO MILD PAIN/FEVER 01/31/17 11:00 02/01/17 10:59 Departure Diagnosis: Primary Impression: Acute leukemia Condition: Serious JAIME MIRANDA MD Jan 31, 2017 10:54
[2017-01-31] MEDS ORDERED: ACETAMINOPHEN 325 MG TAB PO PRN (11:00)
[2017-01-31] MEDS ORDERED: ONDANSETRON 4 MG INJ IV PRN (11:00)
[2017-01-31] MEDS ORDERED: SOD CHLORIDE 0.9% 250 ML IV ONE (11:35)
--- NOTE | 2017-01-31 11:55 | CONS ---
Date/Time of Note Date/Time of Note DATE: 01/31/17 TIME: 11:42 Assessment/Plan Assessment/Plan Additional Assessment/Plan This is an unfortunate man with poor prognosis MDS that is evolving into acute leukemia. Treatment is very unlikely to be effective and is also unlikely to be well tolerated. Dr. Monahan has discussed this with pt and family previously. At this point I would transfuse RBC's to provide symptomatic relief. Hydrea was started two days ago but it is far too short a time period to expect any benefit. I spoke to the ER doctors and they will arrange the initial transfusion since it may be some time before a bed is available. I will also order Hydrea. Note that he is due to see Dr. Monahan in the office in a few days. If the transfusions help his symptoms, he could go home and see Dr. Monahan as an outpatient with the family. Palliative care would be the best option. Note that previous bcr/abl assay was negative. Consultation Date/Type/Reason Admit Date/Time Jan 31, 2017 Type of Consultation: hematology Reason for Consultation evolving leukemia Referring Provider: FRANCHESKA ROBISON MD 24 HR Interval Summary Free Text/Dictation 71 yo man with known MDS that has been evolving into a leukemic phase over the last few months. Dr. Monahan Just started a low dose of Hydrea (500 mg/d) two days ago. Unfortunately this man has a very poor performance status and has been deteriorating over the last few months as well as losing a substantial amount of weight. Pt also has history of diabetes and has come to the hospital frequently, mainly for transfusions. Exam/Review of Systems Vital Signs Vitals Vital Signs Date Time Temp Pulse Resp B/P Pulse Ox O2 Delivery O2 Flow Rate FiO2 01/31/17 10:39 89 18 122/71 98 Room Air 01/31/17 08:18 2 01/31/17 07:51 98.5 Exam Constitutional: alert Head: normocephalic Eyes: other (pallor) ENMT: other (no gum hypertrophy) Neck: supple Respiratory: clear to auscultation Cardiovascular: regular rate and rhythm (~100 beats per minute) Gastrointestinal: nl liver, spleen, non-tender, soft Extremities: other (diffuse loss of muscle mass) Neurological: other (non-focal) Results Result Diagram: 8/25/17 0820 8/25/17 0820 Results 24 hrs Laboratory Tests Test 01/31/17 08:20 White Blood Count 139.6 #H Red Blood Count 2.55 #L Hemoglobin 7.1 #L Hematocrit 22.5 #L Mean Corpuscular Volume 88.2 Mean Corpuscular Hemoglobin 27.8 L Mean Corpuscular Hemoglobin Concent 31.6 L Red Cell Distribution Width 16.6 H Platelet Count 138 L Mean Platelet Volume Neutrophils % Lymphocytes % Monocytes % Eosinophils % Basophils % Nucleated Red Blood Cells % 0.1 H Neutrophils # (Manual) 65.3 H Lymphocytes # Monocytes # Eosinophils # Basophils # Nucleated Red Blood Cells # Pathologist Review (Hematology) Prothrombin Time 21.4 H Prothrombin Time Ratio 1.7 INR International Normalized Ratio 1.84 Activated Partial Thromboplast Time 48.0 H Path Consult Signing Pathologist ADRIANE BISWAS MD Sodium Level 139 Potassium Level 3.7 Chloride Level 102 Carbon Dioxide Level 26 Anion Gap 15 Blood Urea Nitrogen 20 Creatinine 0.87 Glucose Level 171 Calcium Level 10.0 Total Bilirubin 0.3 Direct Bilirubin 0.00 Indirect Bilirubin 0.3 Aspartate Amino Transf (AST/SGOT) 31 Alanine Aminotransferase (ALT/SGPT) 29 Alkaline Phosphatase 71 Troponin I < 0.012 Total Protein 7.7 Albumin 3.4 Globulin 4.30 H Albumin/Globulin Ratio 0.79 Lipase 12 L ANNA LANDIN MD Jan 31, 2017 11:54
[2017-01-31 14:45] VITALS: BP 122/63; PULSE 94; RESP 20
--- NOTE | 2017-01-31 14:58 | PN ---
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 last reggie presented with splenic infarct and mild leukocytosis. the wbc has cont to rise, placed on hydroxyurea by dr hawthorne. now comes to er with abd dyscomfort and leukemic transformation with wbc greater than 120,000 with circulating blasts. at this point in view of his frailty and poor prognosis, chemotherapy seems unwise. will rx w transfusion with out patient follow up i tried to explain this to him, but he is unable to grasp. will discuss further with his son, as well as hospice care. awake but not really alert afebrile lungs clear hr ok abd is soft, bs present ext ok hyperpigmentation as before, no petechiae or evidence of external bleeding. platelets are ok Exam/Review of Systems Vital Signs Vitals Vital Signs Date Time Temp Pulse Resp B/P Pulse Ox O2 Delivery O2 Flow Rate FiO2 01/31/17 10:39 89 18 122/71 98 Room Air 01/31/17 08:18 2 01/31/17 07:51 98.5 Results Result Diagram: 01/31/17 0820 01/31/17 0820 Results 24 hrs Laboratory Tests Test 01/31/17 08:20 White Blood Count 139.6 #H Red Blood Count 2.55 #L Hemoglobin 7.1 #L Hematocrit 22.5 #L Mean Corpuscular Volume 88.2 Mean Corpuscular Hemoglobin 27.8 L Mean Corpuscular Hemoglobin Concent 31.6 L Red Cell Distribution Width 16.6 H Platelet Count 138 L Mean Platelet Volume Neutrophils % Lymphocytes % Monocytes % Eosinophils % Basophils % Nucleated Red Blood Cells % 0.1 H Neutrophils # (Manual) 65.3 H Lymphocytes # Monocytes # Eosinophils # Basophils # Nucleated Red Blood Cells # Pathologist Review (Hematology) Prothrombin Time 21.4 H Prothrombin Time Ratio 1.7 INR International Normalized Ratio 1.84 Activated Partial Thromboplast Time 48.0 H Path Consult Signing Pathologist ADRIANE BISWAS MD Sodium Level 139 Potassium Level 3.7 Chloride Level 102 Carbon Dioxide Level 26 Anion Gap 15 Blood Urea Nitrogen 20 Creatinine 0.87 Glucose Level 171 Calcium Level 10.0 Total Bilirubin 0.3 Direct Bilirubin 0.00 Indirect Bilirubin 0.3 Aspartate Amino Transf (AST/SGOT) 31 Alanine Aminotransferase (ALT/SGPT) 29 Alkaline Phosphatase 71 Troponin I < 0.012 Total Protein 7.7 Albumin 3.4 Globulin 4.30 H Albumin/Globulin Ratio 0.79 Lipase 12 L Medications Medications Current Medications Hydroxyurea (Hydrea) 500 mg BID PO ; Start 01/31/17 at 21:00; Status UNV Megestrol Acetate (Megace Susp) 400 mg BID PO ; Start 01/31/17 at 21:00; Status UNV Pantoprazole (Protonix Tab) 40 mg DAILY PO ; Start 02/01/17 at 09:00; Status UNV FRANCHESKA ROBISON MD Jan 31, 2017 14:57
[2017-01-31] MEDS ORDERED: GLUCAGON 1 MG INJ IM PRN (15:00)
[2017-01-31] MEDS ORDERED: GLUCOSE GEL 15 GRAM TUBE PO PRN ×2 (15:00)
[2017-01-31] MEDS ORDERED: DEXTROSE 50% 50 ML SYRINGE IV PRN ×2 (15:00)
[2017-01-31] MEDS ORDERED: ACCUCHECK 2 AM XX SCH (15:00)
[2017-01-31] MEDS ORDERED: GLUCOSE GEL 15 GRAM TUBE BUCCAL PRN (15:00)
[2017-01-31] MEDS ORDERED: morphine 10 MG INJ IV PRN (15:30)
[2017-01-31] MEDS: INSULIN ASPART [NOVOLOG] 3 ML PEN SC SCH ×2 (17:27→21:00)
[2017-01-31] MEDS: metFORMIN 500 MG TAB PO SCH (17:50)
[2017-01-31] MEDS ORDERED: LORAZEPAM 2 MG INJ IV PRN (19:30)
[2017-01-31] MEDS: ACCU-CHEK XX SCH (20:00)
[2017-01-31 20:15] VITALS: BP 109/63; RESP 18
[2017-01-31] MEDS: MEGESTROL (40 MG/ML) 10ML CUP PO SCH (21:14)
[2017-01-31] MEDS: HYDROXYUREA 500 MG CAP PO SCH (21:15)
--- NOTE | 2017-02-01 04:24 | HP ---
DATE OF ADMISSION: 01/31/2017 CHIEF COMPLAINT: Abdominal pain and weakness. 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 The patient developed some nonspecific abdominal discomfort today and he came into the ER. Hemoglobin is in the low 7s, his white count unfortunately is 130,000 consistent with blast cells consistent with evolving leukemic transformation from his myelodysplastic syndrome. There has been no fever or chills. He has not noticed any difficulty with his bowel or his bladder. History is somewhat difficult because he does not feel well. There was an issue with understanding of Fijian and some issues with his memory. Family is not at his bedside. PAST MEDICAL HISTORY: Is well documented elsewhere. He has a history of mild diabetes controlled with oral medication. He has a history of gout, manifest by elevated uric acid. Otherwise, has been relatively healthy except for the MDS. No previous surgery. Splenic infarct discovered in December,. HABITS: No cigarettes or alcohol. REVIEW OF SYSTEMS: Not complaining of headaches or visual difficulties. He says he is not short of breath. No anterior chest pain. He has some nonspecific abdominal discomfort. Ultrasound was unremarkable. No issues. No arthritic complaints. PHYSICAL EXAMINATION: VITAL SIGNS: Blood pressure is 122/71, his pulse is regular at about 90, normal saturations on room air. GENERAL: He is an ill-appearing man with heavy skin pigmentation. He is unable to completely express himself, but he is awake and alert. HEENT: No signs of trauma. Pupils are round, reactive. Mouth is unremarkable. NECK: Supple. No bruits. CHEST: Clear. HEART: Tones regular. ABDOMEN: Slightly distended. Some nonspecific soreness both right and left upper quadrant. No palpable mass. GENITOURINARY: Genitalia unremarkable. EXTREMITIES: No clubbing, cyanosis, or edema. Good peripheral pulses. NEUROLOGICAL: Nonfocal. IMPRESSION: 1. Leukemic transformation of mild dysplastic syndrome. 2. History of oral agent controlled diabetes mellitus. 3. History of gout. DISCUSSION: Unfortunately attempts at chemotherapy would most likely be fatal or fraught with multiple complications, and at this point perhaps the best treatment is low dose hydroxyurea, which he is already taking and transfusion for symptoms. Consideration for hospice will be discussed with his son's. I attempted to discuss that with him, but he is not able to completely grasp my discussion with him. Dictated By: Lj Trevino MD /estrellita/rodger /Document#: [id number]
[2017-02-01 05:30] LABS: ABNORMAL IP MESSAGE 1; HEMATOCRIT 26.6 % (42.0-52.0); HEMOGLOBIN 8.9 g/dl (14.0-18.0); MEAN CORPUSCULAR HEMOGLOBIN 29.1 pg (29.0-33.0); MEAN CORPUSCULAR HGB CONC 33.5 g/dl (32.0-37.0); MEAN CORPUSCULAR VOLUME 86.9 fl (82.0-101.0); NUCLEATED RED BLOOD CELLS% 0.1 /100WBC (0.0-0.0); PLATELET COUNT 127 10^3/UL (140-415); POSITIVE DIFF @See below; RED BLOOD COUNT 3.06 10^6/ul (4.70-6.10); RED CELL DISTRIBUTION WIDTH 15.9 % (11.5-14.5); WHITE BLOOD COUNT 124.1 10^3/ul (4.8-10.8)
[2017-02-01 05:32] LABS: CALCIUM 9.8 mg/dl (8.4-10.2); CREATININE 0.82 mg/dl (0.61-1.24); POTASSIUM 3.8 mmol/L (3.5-5.1)
[2017-02-01 07:26] LABS: INR 1.67; PROTIME 19.8 Sec (12.2-14.2); PT RATIO 1.5
[2017-02-01] MEDS: INSULIN ASPART [NOVOLOG] 3 ML PEN SC SCH ×2 (07:50→13:00)
[2017-02-01 08:00] VITALS: BP 101/61; RESP 19
[2017-02-01] MEDS ORDERED: PANTOPRAZOLE (EC) 40 MG TAB PO SCH (09:00)
[2017-02-01] MEDS: HYDROXYUREA 500 MG CAP PO SCH (09:36)
[2017-02-01] MEDS: MEGESTROL (40 MG/ML) 10ML CUP PO SCH (09:36)
[2017-02-01] MEDS: metFORMIN 500 MG TAB PO SCH (09:37)
[2017-02-01 10:29] LABS: ANISOCYTOSIS 1+ (0-0); BASOPHIL # 1.2 10^3/ul (0.0-0.1); BLAST% (M) 9 % (0-0); BLASTOCYTES #M 13.9 10^3/ul (0.0-0.0); LYMPHOCYTES # 14.9 10^3/ul (0.8-2.9); METAMYELOCYTES %M 4 % (0-0); MONOCYTE # 9.9 10^3/ul (0.3-0.9); MONOCYTES % (M) 8 % (0-11); MYELOCYTES % (M) 4 % (0-0); PROMYELOCYTES #M 1 10^3/ul (0-0); PROMYELOCYTES % (M) 1 % (0-0)
[2017-02-01 10:33] LABS: PLATELET ESTIMATE DECREASED
--- NOTE | 2017-02-01 11:04 | PN ---
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 Per hematology, aggressive treatment both not likely to be effective and not likely to be tolerated. Have discussed w/ son, Gaston re: prognosis and have advised him to come to hospital and have meeting with palliative care/hospice. Son not available (nor is his brother) and would like pt. d/c'ed if he is stable from standpoint of his anemia into the care of his cousin. Son agrees to meet w/ palliative care or hospice after return of his brother next week. Have informed the son that pt. may or may not survive long enough for that meeting. Son understands. Per heme , continue hydroxyurea. 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 From standpoint of anemia, pt. stable for d/c. (3) Type 2 diabetes mellitus without complications Status: Chronic Comment: Cont. metformin Subjective 24 Hr Interval Summary Constitutional: no complaints Respiratory: no complaints Cardiovascular: no complaints Gastrointestinal: no complaints Genitourinary: no complaints Musculoskeletal: no complaints Neurologic: no complaints Exam/Review of Systems Vital Signs Vitals VS - Last 72 Hours, by Label Date Time Temp Pulse Resp B/P Pulse Ox O2 Delivery O2 Flow Rate FiO2 02/01/17 08:00 98.0 81 19 101/61 96 01/31/17 20:15 98.2 100 18 109/63 92 01/31/17 14:45 98.1 94 20 122/63 95 Room Air 01/31/17 10:39 89 18 122/71 98 Room Air 01/31/17 08:18 Nasal Cannula 2 01/31/17 07:51 98.5 98 16 116/56 98 Vital Signs Date Time Temp Pulse Resp B/P Pulse Ox O2 Delivery O2 Flow Rate FiO2 02/01/17 08:00 98.0 81 19 101/61 96 01/31/17 14:45 Room Air 01/31/17 08:18 2 Intake and Output 01/31/17 01/31/17 02/01/17 15:00 23:00 07:00 Intake Total 650 ml Balance 650 ml Exam Constitutional: frail, No alert, No oriented Respiratory: clear to auscultation, normal air movement Cardiovascular: nl pulses, regular rate and rhythm, No edema, No murmurs/extra sounds, No rub Gastrointestinal: bowel sounds, nl liver, spleen, non-tender, soft, No mass, No rebound or guarding Musculoskeletal: nl extremities to inspection Extremities: normal pulses, No clubbing, No cyanosis, No edema Neurological: [employer] II-XII intact, lethargic, nl speech, nl strength, No nl mental status Results Result Diagram: 02/01/17 0500 02/01/17 0500 Results 24 hrs Laboratory Tests Test 01/31/17 17:25 02/01/17 04:23 02/01/17 05:00 02/01/17 09:01 Bedside Glucose 128 Prothrombin Time 19.8 H Prothrombin Time Ratio 1.5 INR International Normalized Ratio 1.67 Albumin 3.2 L White Blood Count 124.1 H Red Blood Count 3.06 L Hemoglobin 8.9 #L Hematocrit 26.6 L Mean Corpuscular Volume 86.9 Mean Corpuscular Hemoglobin 29.1 Mean Corpuscular Hemoglobin Concent 33.5 Red Cell Distribution Width 15.9 H Platelet Count 127 L Mean Platelet Volume Neutrophils % Segmented Neutrophils % (Manual) 54 Band Neutrophils % (Manual) 7 H Lymphocytes % Lymphocytes % (Manual) 12 L Monocytes % Monocytes % (Manual) 8 Eosinophils % Basophils % Metamyelocytes % (manual) 4 H Myelocytes % (Manual) 4 H Promyelocytes % (Manual) 1 H Blast Cells % (Manual) 9 H Nucleated Red Blood Cells % 0.1 H Neutrophils # (Manual) 77.7 H Band Neutrophils # 8.6 H Absolute Lymphocytes (Manual) 14.8 H Lymphocytes # 14.9 H Monocytes # 9.9 H Absolute Monocytes (Manual) 9.9 H Eosinophils # Basophils # 1.2 H Metamyelocytes # 4.9 H Myelocytes # 4.9 H Promyelocytes # 1 H Blastocytes # 13.9 H Nucleated Red Blood Cells # Platelet Estimate DECREASED Anisocytosis 1+ Sodium Level 138 Potassium Level 3.8 Chloride Level 103 Carbon Dioxide Level 25 Anion Gap 14 Blood Urea Nitrogen 19 Creatinine 0.82 Glucose Level 116 # Calcium Level 9.8 Lab Scanned Report BLOOD TRANSFUSION Medications Medications Current Medications Hydroxyurea (Hydrea) 500 mg BID PO Last administered on 02/01/17 09:36; Admin Dose 500 MG; Start 01/31/17 at 21:00 Megestrol Acetate (Megace Susp) 400 mg BID PO Last administered on 02/01/17 09 :36; Admin Dose 400 MG; Start 01/31/17 at 21:00 Pantoprazole (Protonix Tab) 40 mg DAILY@06 PO Last administered on 02/01/17 09 :37; Admin Dose 40 MG; Start 02/01/17 at 09:00 Diagnostic Test (Pha) (Accu-Chek) 1 ea 02 XX ; Start 01/31/17 at 15:00 Miscellaneous Information 1 ea NOTE XX ; Start 01/31/17 at 15:00 Glucose (Glutose) 15 gm Q15M PRN PO DECREASED GLUCOSE; Start 01/31/17 at 15:00 Glucose (Glutose) 22.5 gm Q15M PRN PO DECREASED GLUCOSE; Start 01/31/17 at 15: 00 Dextrose (D50w Syringe) 25 ml Q15M PRN IV DECREASED GLUCOSE; Start 01/31/17 at 15:00 Dextrose (D50w Syringe) 50 ml Q15M PRN IV DECREASED GLUCOSE; Start 01/31/17 at 15:00 Glucagon (Glucagen) 1 mg Q15M PRN IM DECREASED GLUCOSE; Start 01/31/17 at 15:00 Glucose (Glutose) 15 gm Q15M PRN BUCCAL DECREASED GLUCOSE; Start 01/31/17 at 15 :00 Morphine Sulfate (morphine) 2 mg Q4H PRN IV PAIN; Start 01/31/17 at 15:30 Lorazepam (Ativan) 1 mg Q6H PRN IV AGITATION; Start 01/31/17 at 19:30 DARLENE HAYWOOD MD Feb 01, 2017 11:02
[2017-02-01] MEDS: ACCU-CHEK XX SCH (11:06)
--- NOTE | 2017-02-01 11:10 | DS ---
Date/Time of Note Date/Time of Note DATE: 02/01/17 TIME: 11:04 Discharge Summary Admission/Discharge Info Admit Date/Time Jan 31, 2017 at 10:41 Discharge Date/Time 02/01/17 @ 1100 Discharge Diagnosis Myelodysplastic syndrome w/ refractory anemia, now transformed into acute myelogenous leukemia Patient Condition: Critical Consults hematology: Dr. 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 The patient developed some nonspecific abdominal discomfort yesterday and he came into the ER. Hemoglobin was in the low 7s, his white count unfortunately was 130,000 consistent with blast cells consistent with evolving leukemic transformation from his myelodysplastic syndrome. There had been no fever or chills. He had not noticed any difficulty with his bowel or his bladder. Admitted. Hospital Course After admission, pt. transfused 2 units PRBC and resulting hemoglobin was 8.9. Hematology commented that treatment would not be effective or tolerated. Have discussed w/ son, Gaston re: prognosis and have advised him to come to hospital and have meeting with palliative care/hospice. Son not available (nor is his brother) and would like pt. d/c'ed if he is stable from standpoint of his anemia into the care of his cousin. Son agrees to meet w/ palliative care or hospice after return of his brother next week. Have informed the son that pt. may or may not survive long enough for that meeting. Son understands. Per heme , continue hydroxyurea. Home Meds Reported Medications Megestrol Acetate* (Megestrol Acetate*) 400 Mg/10 Ml Susp, 400 MG PO BID, ML 01/31/17 Metformin Hcl* (Metformin Hcl*) 500 Mg Tablet, 500 MG PO WITH BREAKFAST DINNE, # 30 TAB 01/31/17 Pantoprazole* (Protonix*) 40 Mg Tablet., 40 MG PO DAILY, TAB 01/31/17 Fenofibrate Nanocrystallized* (Fenofibrate*) 145 Mg Tablet, 145 MG PO DAILY, TAB 01/31/17 Hydroxyurea* (Hydroxyurea*) 500 Mg Capsule, 500 MG PO BID, CAP 01/31/17 Discontinued Scripts Acetaminophen (MAPAP) 325 Mg Tablet, 650 MG PO Q6H Y for PAIN LEVEL 1-3 OR FEVER , #60 TAB ffor prn use, has at home Prov:FRANCHESKA ROBISON MD 12/18/16 [Revlimid] No Conflict Check, 10 MG PO DAILY for 90 Days, #90 has at home Prov:FRANCHESKA ROBISON MD 12/18/16 Metformin Hcl* (Metformin Hcl*) 500 Mg Tablet, 500 MG PO WITH BREAKFAST DINNE, # 60 TAB bid has at home Prov:FRANCHESKA ROBISON MD 12/18/16 Fenofibrate Nanocrystallized* (Fenofibrate*) 48 Mg Tablet, 48 MG PO DAILY for 90 Days, #90 TAB dhe has meds at home, no new rx needed Prov:FRANCHESKA ROBISON MD 12/18/16 Follow-up Plan f/u w/ Dr. Monahan this week. Primary Care Provider Francheska Robison MD Time spent on discharge: > 30 minutes Pending Labs Laboratory Tests Test 01/31/17 17:25 02/01/17 04:23 02/01/17 05:00 02/01/17 09:01 Bedside Glucose 128mg/dL (70-220) Prothrombin Time 19.8Sec (12.2-14.2) Prothrombin Time Ratio 1.5 INR International Normalized Ratio 1.67 Albumin 3.2g/dl (3.3-4.9) White Blood Count 124.110^3/ul (4.8-10.8) Red Blood Count 3.0610^6/ul (4.70-6.10) Hemoglobin 8.9g/dl (14.0-18.0) Hematocrit 26.6% (42.0-52.0) Mean Corpuscular Volume 86.9fl (82.0-101.0) Mean Corpuscular Hemoglobin 29.1pg (29.0-33.0) Mean Corpuscular Hemoglobin Concent 33.5g/dl (32.0-37.0) Red Cell Distribution Width 15.9% (11.5-14.5) Platelet Count 10806^3/UL (140-415) Mean Platelet Volume fl (7.4-10.4) Neutrophils % % (39.0-77.0) Segmented Neutrophils % (Manual) 54% (39-77) Band Neutrophils % (Manual) 7% (0-4) Lymphocytes % % (15.0-51.0) Lymphocytes % (Manual) 12% (15-51) Monocytes % % (0.0-11.0) Monocytes % (Manual) 8% (0-11) Eosinophils % % (0.0-7.0) Basophils % % (0.0-2.0) Metamyelocytes % (manual) 4% (0-0) Myelocytes % (Manual) 4% (0-0) Promyelocytes % (Manual) 1% (0-0) Blast Cells % (Manual) 9% (0-0) Nucleated Red Blood Cells % 0.1/100WBC (0.0-0.0) Neutrophils # (Manual) 77.710^3/ul (1.7-7.5) Band Neutrophils # 8.610^3/ul (0.0-0.6) Absolute Lymphocytes (Manual) 14.810^3/ul (0.8-2.9) Lymphocytes # 14.910^3/ul (0.8-2.9) Monocytes # 9.910^3/ul (0.3-0.9) Absolute Monocytes (Manual) 9.910^3/ul (0.3-0.9) Eosinophils # 10^3/ul (0.0-0.5) Basophils # 1.210^3/ul (0.0-0.1) Metamyelocytes # 4.910^3/ul (0.0-0.0) Myelocytes # 4.910^3/ul (0.0-0.0) Promyelocytes # 110^3/ul (0-0) Blastocytes # 13.910^3/ul (0.0-0.0) Nucleated Red Blood Cells # 10^3/ul (0.0-0.0) Platelet Estimate DECREASED Anisocytosis 1+ (0-0) Sodium Level 138mmol/L (135-144) Potassium Level 3.8mmol/L (3.5-5.1) Chloride Level 103mmol/L (97-110) Carbon Dioxide Level 25mmol/L (21-31) Anion Gap 14 (8-16) Blood Urea Nitrogen 19mg/dl (7-20) Creatinine 0.82mg/dl (0.61-1.24) Glucose Level 116mg/dl (70-220) Calcium Level 9.8mg/dl (8.4-10.2) Lab Scanned Report BLOOD [id number] DARLENE HAYWOOD MD Feb 01, 2017 11:10
--- NOTE | 2017-02-01 11:11 | PDOCDIS ---
Discharge Instructions DIAGNOSIS Discharge Diagnosis Myelodysplastic syndrome w/ refractory anemia, now transformed into acute myelogenous leukemia CONDITION Patient Condition: Critical HOME CARE INSTRUCTIONS: Diet Instructions: Regular ACTIVITY: Activity Restrictions: No Restrictions Bathing Restrictions: Tub Bath FOLLOW UP/APPOINTMENTS Follow-up Plan f/u w/ Dr. Monahan this week DARLENE HAYWOOD MD Feb 01, 2017 11:11
== END 2017-02-01 14:29 | disposition home or self-care (01) | DRG 842 ==
LOC: E/R 07:49 → MS1 10:41
PROVIDERS: ADMIT Internal Medicine; ATTEND Internal Medicine
PROC: 30233N1 Transfusion of Nonautologous Red Blood Cells into Peripheral Vein, Percutaneous Approach (ICD-10-PCS; principal; 2017-01-31)
DX: C92.Z0 Other myeloid leukemia not having achieved remission (principal); E11.9 Type 2 diabetes mellitus without complications; D46.4 Refractory anemia, unspecified
CPT/HCPCS: 36430; 76705; 80048; 80053; 82040; 82962; 83690; 84484; 85025; 85610; 85730; 86644; 86850; 86900; 86901; 86920; 86945; 93005; 96374; 96375; J1815; J2270; J2405; J7040; P9011; P9016

== ENCOUNTER 2017-02-03 13:29 | Inpatient (IN) | payer MEDICARE, BC ==
[~2017-02-03] VITALS: Ht 165.1 cm; Wt 51.0 kg
[~2017-02-03 13:29] MED LIST changes: -ACET325T40 PO; +FENO145T19 PO; -FENO48TA4 PO; +HYDR500C3 PO; +MEG40/1 PO; +PANT40TA3 PO; -REVLIMID PO
[2017-02-03] MEDS ORDERED: ONDANSETRON 4 MG INJ IV STA (16:30)
[2017-02-03] MEDS ORDERED: SOD CHLORIDE 0.9% 1,000 ML IV STA ×2 (16:30→21:37)
[2017-02-03] MEDS ORDERED: HYDROmorphONE 1 MG/ML SYG IV STA ×2 (16:30→21:50)
[2017-02-03 17:02] LABS: ABNORMAL IP MESSAGE 1; HEMATOCRIT 28.6 % (42.0-52.0); HEMOGLOBIN 9.6 g/dl (14.0-18.0); MEAN CORPUSCULAR HEMOGLOBIN 28.8 pg (29.0-33.0); MEAN CORPUSCULAR HGB CONC 33.6 g/dl (32.0-37.0); MEAN CORPUSCULAR VOLUME 85.9 fl (82.0-101.0); PLATELET COUNT 124 10^3/UL (140-415); POSITIVE DIFF @See below; RED BLOOD COUNT 3.33 10^6/ul (4.70-6.10); RED CELL DISTRIBUTION WIDTH 16.5 % (11.5-14.5); WHITE BLOOD COUNT 151.5 10^3/ul (4.8-10.8)
[2017-02-03 17:03] LABS: INR 1.78; PROTIME 20.9 Sec (12.2-14.2); PT RATIO 1.6
[2017-02-03 17:05] LABS: PARTIAL THROMBOPLASTIN TIME 49.1 Sec (25.0-35.0)
[2017-02-03 17:06] LABS: ALANINE AMINOTRANSFERASE 30 IU/L (13-69); ALBUMIN 3.6 g/dl (3.3-4.9); ALBUMIN/GLOBULIN RATIO 0.81; ALKALINE PHOSPHATASE 84 IU/L (42-121); ANION GAP 20 (8-16); ASPARTATE AMINO TRANSFERASE 28 IU/L (15-46); BILIRUBIN,INDIRECT 0.5 mg/dl (0-1.1); BILIRUBIN,TOTAL 0.5 mg/dl (0.2-1.3); BLOOD UREA NITROGEN 24 mg/dl (7-20); CALCIUM 9.8 mg/dl (8.4-10.2); CARBON DIOXIDE 20 mmol/L (21-31); CHLORIDE 107 mmol/L (97-110); CREATININE 0.95 mg/dl (0.61-1.24); GLUCOSE 157 mg/dl (70-220); POTASSIUM 4.2 mmol/L (3.5-5.1); SODIUM 143 mmol/L (135-144)
[2017-02-03] MEDS ORDERED: SOD CHLORIDE 0.9% 100 ML ONE (17:47)
[2017-02-03] MEDS ORDERED: IOHEXOL 300MG/ML 150 ML BTL ONE (17:47)
--- NOTE | 2017-02-03 17:56 | RADRPT ---
PROCEDURE: XR Chest. CLINICAL INDICATION: Chest pain. TECHNIQUE: Portable AP upright view of the chest was obtained. COMPARISON: 01/15/2017 FINDINGS: The cardiomediastinal silhouette is mildly enlarged. Low lung volumes with persistent left lower lo be consolidation likely chronic atelectasis and development of mild right basilar subsegmental atele ctasis. Small pleural effusions are difficult to exclude. There is no evidence of pneumothorax. T he pulmonary vasculature is slightly prominent allowing for the degree of inspiratory response. Old healed right rib fractures are again demonstrated. There is no evidence of acute osseous abnormali ty. Calcification is again visible within the aorta RPTAT:HJJR IMPRESSION: 1. Low lung volumes with left greater than right basilar atelectasis, left lower lobe changes sligh tly worse compared to 01/15/2017. 2. Cardiac silhouette enlargement with mild pulmonary vascular prominence unable to exclude congest darío heart failure in the proper clinical setting. 3. Aortic atherosclerosis is present. 4. Multiple old healed right rib fractures. Physician Jacinda Date Time Electronically viewed and signed by Physician Jacinda on 02/03/2017 17:56 /
--- NOTE | 2017-02-03 18:40 | RADRPT ---
PROCEDURE: CT Abdomen and Pelvis with contrast. CLINICAL INDICATION: Abdominal pain TECHNIQUE: CT of the abdomen and pelvis was performed on a multi-detector scanner following the un complicated IV administration of 80 cc of Omnipaque 300. Coronal and sagittal images were reformatt ed from the axial data set. One or more of the following dose reduction techniques were used: autom ated exposure control, adjustment of the mA and/or kV according to patient size, use of iterative r econstruction technique. CTDI = 9.26 mGy. DLP = 485.78 mGy-cm. COMPARISON: CT, 12/15/2016 FINDINGS: CT abdomen: There are small to mild bilateral pleural effusions, with associated bibasilar atelectasis. The hea rt size is normal, without pericardial effusion. Coronary arterial calcifications are present. Hep atomegaly is noted (22 cm), without evidence of focal mass. Portal vein remains patent. Cholelithi asis is seen without evidence for cholecystitis. Biliary tree, pancreas and adrenal glands are unre markable. Splenomegaly is noted measuring 16 cm (previously 15 mm). 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 Bilateral benign renal cysts are noted, st able over time. Small nonobstructive right renal calculus is identified, without ureterolithiasis o r obstructive uropathy. The stomach is grossly unremarkable. There is no abdominal aortic aneurysm or dissection. Aortic vascular calcifications are present. T here is no retroperitoneal lymphadenopathy. The ana hepatis region is clear. CT pelvis: No bowel obstruction, free intraperitoneal air or abscess is identified. Mild amount of ascites is present. No diverticulosis, diverticulitis, colitis or appendicitis is identified. Urinary bladder is grossly unremarkable. No pelvic mass or lymphadenopathy is identified. The surrounding osseous structures are remarkable for degenerative enthesopathy of the spine. No os teolytic or osteoblastic lesion is detected. There is chronic bilateral L4 spondylolysis with grade 1 anterolisthesis at L4-5. IMPRESSION: 1. Splenomegaly is again noted, mildly increased when compared to the prior CT. Multiple chronic f oci of splenic infarct are again seen, grossly stable. 2. Mild amount of ascites is noted, also increased. 3. Hepatomegaly is again seen, grossly unchanged. 4. Cholelithiasis is seen without evidence for cholecystitis. 5. There are small to mild bilateral pleural effusions, with associated bibasilar atelectasis, bubba sly unchanged. 6. Coronary arterial and aortoiliac atherosclerotic calcifications are present. 7. Small nonobstructive right renal calculus is noted, without ureterolithiasis or obstructive urop athy. 8. No mass or lymphadenopathy is identified. RPTAT: HH .Harry Guzman MD, MD Date Time Electronically viewed and signed by .Harry Guzman MD, on 02/03/2017 18:40 .R/
[2017-02-03 19:04] LABS: LYMPHOCYTES # 6.1 10^3/ul (0.8-2.9)
[2017-02-03] MEDS ORDERED: CEFEPIME 2GM/50 ML (PMX) 50 ML IVPB STA (19:48)
--- NOTE | 2017-02-03 19:50 | ERA ---
ER Documentation Chief Complaint Date/Time DATE: 02/03/17 TIME: 19:40 Chief Complaint abd pain with n/v and weakness since yesterday has leukemia HPI This is a 71-year-old male known to me from prior visits he is here for diffuse abdominal pain. The patient states he has had abdominal pain for 3 days is getting worse. He states the pain is all over and described as constant and achy. He is relatively poor historian. The patient says he has had some diarrhea and nausea but no vomiting. He did tell the nurse he was vomiting that he told me he was not. The patient says he feels weak and has some malaise and not eating well. Denies any fever chest pain cough dysuria no blood in his stool. His last visit with me he had a hemoglobin of just over 4 and he needed blood transfusion. He also has a history of splenic infarcts The is now here and states that there were discharged 2 days ago and since that time he is being sleeping a lot, complaining of stomach pain is diffuse, not eating well. She states that he is getting more weak. When he walks they have to hold him up. She is concerned that something else is going on. ROS All systems reviewed and are negative except as per history of present illness. Medications Home Meds Reported Medications Metformin Hcl* (Metformin Hcl*) 500 Mg Tablet, 500 MG PO WITH BREAKFAST DINNE, # 30 TAB 01/31/17 Pantoprazole* (Protonix*) 40 Mg Tablet.dr, 40 MG PO DAILY, TAB 01/31/17 Fenofibrate Nanocrystallized* (Fenofibrate*) 145 Mg Tablet, 145 MG PO DAILY, TAB 01/31/17 Hydroxyurea* (Hydroxyurea*) 500 Mg Capsule, 500 MG PO BID, CAP 01/31/17 Discontinued Reported Medications Megestrol Acetate* (Megestrol Acetate*) 400 Mg/10 Ml Susp, 400 MG PO BID, ML 01/31/17 Discontinued Scripts Acetaminophen (MAPAP) 325 Mg Tablet, 650 MG PO Q6H Y for PAIN LEVEL 1-3 OR FEVER , #60 TAB ffor prn use, has at home Prov:FRANCHESKA ROBISON MD 12/18/16 [Revlimid] No Conflict Check, 10 MG PO DAILY for 90 Days, #90 has at home Prov:FRANCHESKA ROBISON MD 12/18/16 Metformin Hcl* (Metformin Hcl*) 500 Mg Tablet, 500 MG PO WITH BREAKFAST DINNE, # 60 TAB bid has at home Prov:FRANCHESKA ROBISON MD 12/18/16 Fenofibrate Nanocrystallized* (Fenofibrate*) 48 Mg Tablet, 48 MG PO DAILY for 90 Days, #90 TAB dhe has meds at home, no new rx needed Prov:FRANCHESKA ROBISON MD 12/18/16 Allergies Allergies: Coded Allergies: No Known Allergies (Verified Allergy, Unknown, 02/03/17) PMhx/Soc History of Surgery: No Anesthesia Reaction: No (UNKNOWN) Hx Neurological Disorder: No Hx Respiratory Disorders: No Hx Cardiac Disorders: Yes (HIGH CHOLESTEROL) Hx Psychiatric Problems: No Hx Miscellaneous Medical Probl: Yes (ANEMIA.LEUKEMIA, MDS) Hx Alcohol Use: No Hx Substance Use: No Hx Tobacco Use: No Smoking Status: Never smoker FmHx Family History: No coronary disease Physical Exam Vitals Vital Signs Date Time Temp Pulse Resp B/P Pulse Ox O2 Delivery O2 Flow Rate FiO2 02/03/17 18:49 105 22 106/64 96 Nasal Cannula 2.0 02/03/17 13:40 101.5 133 20 131/77 95 Physical Exam Const: Well-developed, well-nourished Head: Atraumatic, normocephalic Eyes: Normal Conjunctiva, PERRLA, EOMI, normal sclera, no nystagmus ENT: Normal External Ears, Nose and Mouth, moist mucus membranes. Neck: Full range of motion. No meningismus, no lymphadenopathy. Resp: Clear to auscultation bilaterally, no wheezing, rhonchi, rales Cardio: Regular rate and rhythm, no murmurs, S1 S2 present Abd: Soft, diffuse moderate tenderness + distended. Normal bowel sounds , no guarding or rebound, no pulsitile abdominal masses or bruits Skin: No petechiae or rashes, no ecchymosis , no maculopapular rash Back: No midline or flank tenderness Ext: No cyanosis, or edema, FROM x 4, normal inspection, neurovascularly intact x 4 Neur: Awake and alert, STR 5/5 x 4, sensation intact x 4, no focal findings, cerebellum intact Psych: Normal Mood and Affect Result Diagram: 02/03/17 1616 02/03/17 1616 Results 24 hrs Laboratory Tests Test 02/03/17 16:16 White Blood Count 151.510^3/ul Red Blood Count 3.3310^6/ul Hemoglobin 9.6g/dl Hematocrit 28.6% Mean Corpuscular Volume 85.9fl Mean Corpuscular Hemoglobin 28.8pg Mean Corpuscular Hemoglobin Concent 33.6g/dl Red Cell Distribution Width 16.5% Platelet Count 33571^3/UL Mean Platelet Volume fl Neutrophils % % Segmented Neutrophils % (Manual) 57% Band Neutrophils % (Manual) 11% Lymphocytes % % Lymphocytes % (Manual) 4% Monocytes % % Monocytes % (Manual) 2% Eosinophils % % Basophils % % Metamyelocytes % (manual) 1% Myelocytes % (Manual) 3% Blast Cells % (Manual) 22% Nucleated Red Blood Cells % 0.1/100WBC Neutrophils # (Manual) 111.510^3/ul Band Neutrophils # 16.610^3/ul Absolute Lymphocytes (Manual) 6.010^3/ul Lymphocytes # 6.110^3/ul Monocytes # 3.010^3/ul Absolute Monocytes (Manual) 3.010^3/ul Eosinophils # 10^3/ul Basophils # 10^3/ul Metamyelocytes # 1.510^3/ul Myelocytes # 4.510^3/ul Blastocytes # 50.410^3/ul Nucleated Red Blood Cells # 10^3/ul Prothrombin Time 20.9Sec Prothrombin Time Ratio 1.6 INR International Normalized Ratio 1.78 Activated Partial Thromboplast Time 49.1Sec Sodium Level 143mmol/L Potassium Level 4.2mmol/L Chloride Level 107mmol/L Carbon Dioxide Level 20mmol/L Anion Gap 20 Blood Urea Nitrogen 24mg/dl Creatinine 0.95mg/dl Glucose Level 157mg/dl Calcium Level 9.8mg/dl Total Bilirubin 0.5mg/dl Direct Bilirubin 0.00mg/dl Indirect Bilirubin 0.5mg/dl Aspartate Amino Transf (AST/SGOT) 28IU/L Alanine Aminotransferase (ALT/SGPT) 30IU/L Alkaline Phosphatase 84IU/L Total Protein 8.0g/dl Albumin 3.6g/dl Globulin 4.40g/dl Albumin/Globulin Ratio 0.81 Lipase < 10U/L Current Medications Medications (Trade) Dose Ordered Sig/Sun Route PRN Reason Start Time Stop Time Status Last Admin Dose Admin Sodium Chloride (NS) 1,000 ml @ 1,000 mls/hr Q1H STAT IV 02/03/17 16:30 02/03/17 17:29 DC 02/03/17 16:44 Hydromorphone HCl (Dilaudid) 1 mg ONCE STAT IV 02/03/17 16:30 02/03/17 16:32 DC 02/03/17 16:44 Ondansetron HCl (Zofran Inj) 4 mg ONCE STAT IV 02/03/17 16:30 02/03/17 16:32 DC 02/03/17 16:44 IV Flush 10 ml 10 ml STK-MED ONCE .ROUTE 02/03/17 17:47 02/03/17 17:48 DC 02/03/17 18:10 Sodium Chloride (NS) 100 ml @ ud STK-MED ONCE .ROUTE 02/03/17 17:47 02/03/17 17:48 DC 02/03/17 18:10 Iohexol 150 ml 150 ml STK-MED ONCE .ROUTE 02/03/17 17:47 02/03/17 17:48 DC 02/03/17 18:10 Cefepime HCl 50 ml @ 100 mls/hr ONCE STAT IVPB 02/03/17 19:48 02/03/17 20:17 DC 02/03/17 20:30 Vancomycin HCl 250 ml @ 125 mls/hr ONCE ONCE IVPB 02/03/17 20:00 02/03/17 21:59 Sodium Chloride (NS) 1,000 ml @ 1,000 mls/hr Q1H STAT IV 02/03/17 21:37 02/03/17 22:36 Hydromorphone HCl (Dilaudid) 0.5 mg ONCE STAT IV 02/03/17 21:50 02/03/17 21:51 UNV Sodium Chloride (NS) 250 ml ONCE IV 02/03/17 22:00 UNV IV Flush (NS 3 ml) 3 ml PER PROTOCOL IV 02/03/17 22:00 UNV Pantoprazole (Protonix Tab) 40 mg DAILY PO 02/04/17 09:00 UNV Procedures/MDM PROCEDURE: XR Chest. CLINICAL INDICATION: Chest pain. TECHNIQUE: Portable AP upright view of the chest was obtained. COMPARISON: 01/15/2017 FINDINGS: The cardiomediastinal silhouette is mildly enlarged. Low lung volumes with persistent left lower lobe consolidation likely chronic atelectasis and development of mild right basilar subsegmental atelectasis. Small pleural effusions are difficult to exclude. There is no evidence of pneumothorax. The pulmonary vasculature is slightly prominent allowing for the degree of inspiratory response. Old healed right rib fractures are again demonstrated. There is no evidence of acute osseous abnormality. Calcification is again visible within the aorta RPTAT:HJJR IMPRESSION: 1. Low lung volumes with left greater than right basilar atelectasis, left lower lobe changes slightly worse compared to 01/15/2017. 2. Cardiac silhouette enlargement with mild pulmonary vascular prominence unable to exclude congestive heart failure in the proper clinical setting. 3. Aortic atherosclerosis is present. 4. Multiple old healed right rib fractures. Physician Jacinda Date Time Electronically viewed and signed by Physician Jacinda on 02/03/2017 17:56 JR/ CC: BRITTANI CONTRERAS DO PROCEDURE: CT Abdomen and Pelvis with contrast. CLINICAL INDICATION: Abdominal pain TECHNIQUE: CT of the abdomen and pelvis was performed on a multi-detector scanner following the uncomplicated IV administration of 80 cc of Omnipaque 300. Coronal and sagittal images were reformatted from the axial data set. One or more of the following dose reduction techniques were used: automated exposure control, adjustment of the mA and/or kV according to patient size, use of iterative reconstruction technique. CTDI = 9.26 mGy. DLP = 485.78 mGy- cm. COMPARISON: CT, 12/15/2016 FINDINGS: CT abdomen: There are small to mild bilateral pleural effusions, with associated bibasilar atelectasis. The heart size is normal, without pericardial effusion. Coronary arterial calcifications are present. Hepatomegaly is noted (22 cm), without evidence of focal mass. Portal vein remains patent. Cholelithiasis is seen without evidence for cholecystitis. Biliary tree, pancreas and adrenal glands are unremarkable. Splenomegaly is noted measuring 16 cm (previously 15 mm). Multiple chronic splenic infarcts are again seen, grossly unchanged from the prior CT. Bilateral benign renal cysts are noted, stable over time. Small nonobstructive right renal calculus is identified, without ureterolithiasis or obstructive uropathy. The stomach is grossly unremarkable. There is no abdominal aortic aneurysm or dissection. Aortic vascular calcifications are present. There is no retroperitoneal lymphadenopathy. The ana hepatis region is clear. CT pelvis: No bowel obstruction, free intraperitoneal air or abscess is identified. Mild amount of ascites is present. No diverticulosis, diverticulitis, colitis or appendicitis is identified. Urinary bladder is grossly unremarkable. No pelvic mass or lymphadenopathy is identified. The surrounding osseous structures are remarkable for degenerative enthesopathy of the spine. No osteolytic or osteoblastic lesion is detected. There is chronic bilateral L4 spondylolysis with grade 1 anterolisthesis at L4-5. IMPRESSION: 1. Splenomegaly is again noted, mildly increased when compared to the prior CT. Multiple chronic foci of splenic infarct are again seen, grossly stable. 2. Mild amount of ascites is noted, also increased. 3. Hepatomegaly is again seen, grossly unchanged. 4. Cholelithiasis is seen without evidence for cholecystitis. 5. There are small to mild bilateral pleural effusions, with associated bibasilar atelectasis, grossly unchanged. 6. Coronary arterial and aortoiliac atherosclerotic calcifications are present. 7. Small nonobstructive right renal calculus is noted, without ureterolithiasis or obstructive uropathy. 8. No mass or lymphadenopathy is identified. RPTAT: HH .Harry Guzman MD, MD Date Time Electronically viewed and signed by .Harry Guzman MD, MD on 02/03/2017 18: 40 .R/ CC: BRITTANI CONTRERAS DO Patient has a remarkably elevated white blood count of 151.5 with a bandemia. There is no evidence of infection in the chest. Urinalysis is currently pending Spoke with Dr. Holley, as well as patient's oncologist environmental engineering manager who will see him tomorrow. Patient will be admitted for fluid resuscitation he does seem a little bit dehydrated and he has some anorexia at home with lack of oral intake putting water. He seems to be gradually getting more weak. Patient should be admitted to a skilled nursing at this point unfortunately, this patient's condition is a very poor prognosis Departure Diagnosis: Primary Impression: Leukocytosis Qualified Code: D72.825 - Bandemia Additional Impressions: Bandemia Abdominal pain Qualified Code: R10.9 - Abdominal pain, unspecified abdominal location Condition: Stable BRITTANI CONTRERAS DO Feb 03, 2017 19:50
[2017-02-03] MEDS ORDERED: VANCOMYCIN 1 GM (PMX) 250 ML IVPB ONE (20:00)
[2017-02-03] MEDS ORDERED: SOD CHLORIDE 0.9% 1,000 ML IV SCH (21:53)
[2017-02-03] MEDS ORDERED: BISACODYL 10 MG SUPP PR PRN (22:00)
[2017-02-03] MEDS ORDERED: ONDANSETRON 4 MG INJ IV PRN ×2 (22:00)
[2017-02-03] MEDS ORDERED: ONDANSETRON 4 MG TAB PO PRN (22:00)
[2017-02-03] MEDS ORDERED: NACL 0.9% 3 ML SYG IV SCH (22:00)
[2017-02-03] MEDS ORDERED: SODIUM CHLORIDE 0.9% 1L BAG IV SCH (22:00)
[2017-02-03] MEDS ORDERED: ACETAMINOPHEN 325 MG TAB PO PRN (22:00)
[2017-02-03] MEDS ORDERED: MAGNESIUM HYDROXIDE 30ML CUP PO PRN (22:00)
[2017-02-03] MEDS ORDERED: DEXTROSE 50% 50 ML SYRINGE IV PRN ×2 (23:00)
[2017-02-03] MEDS ORDERED: GLUCOSE GEL 15 GRAM TUBE BUCCAL PRN (23:00)
[2017-02-03] MEDS ORDERED: GLUCAGON 1 MG INJ IM PRN (23:00)
[2017-02-03] MEDS ORDERED: GLUCOSE GEL 15 GRAM TUBE PO PRN ×2 (23:00)
[2017-02-04] VITALS (7 sets, daily range): BP systolic 100–127; BP diastolic 58–210; PULSE 106–125; RESP 16–20; Ht 165.1 cm; Wt 51.0 kg
[2017-02-04] MEDS: HYDROCODONE/APAP (5/325) TAB PO PRN ×2 (00:16→17:10)
[2017-02-04] MEDS: ACCU-CHEK XX SCH (01:16)
[2017-02-04 05:55] LABS: ABNORMAL IP MESSAGE 1; HEMATOCRIT 24.3 % (42.0-52.0); HEMOGLOBIN 7.9 g/dl (14.0-18.0); MEAN CORPUSCULAR HEMOGLOBIN 28.2 pg (29.0-33.0); MEAN CORPUSCULAR HGB CONC 32.5 g/dl (32.0-37.0); MEAN CORPUSCULAR VOLUME 86.8 fl (82.0-101.0); NUCLEATED RED BLOOD CELLS% 0.1 /100WBC (0.0-0.0); PLATELET COUNT 97 10^3/UL (140-415); POSITIVE DIFF @See below; RED CELL DISTRIBUTION WIDTH 17.2 % (11.5-14.5); WHITE BLOOD COUNT 138.4 10^3/ul (4.8-10.8)
[2017-02-04 06:06] LABS: ALBUMIN 2.8 g/dl (3.3-4.9); ALBUMIN/GLOBULIN RATIO 0.73; BILIRUBIN,INDIRECT 0.5 mg/dl (0-1.1); BILIRUBIN,TOTAL 0.5 mg/dl (0.2-1.3); CALCIUM 9.3 mg/dl (8.4-10.2); CREATININE 0.83 mg/dl (0.61-1.24); POTASSIUM 3.9 mmol/L (3.5-5.1); TOTAL PROTEIN 6.6 g/dl (6.1-8.1)
[2017-02-04] MEDS: INSULIN ASPART [NOVOLOG] 3 ML PEN SC SCH ×4 (07:50→21:00)
[2017-02-04] MEDS: FENOFIBRATE 145 MG TAB PO SCH (08:37)
[2017-02-04] MEDS: FAMOTIDINE 20 MG TAB PO SCH ×2 (08:37→21:43)
[2017-02-04] MEDS: PANTOPRAZOLE (EC) 40 MG TAB PO SCH (08:37)
[2017-02-04] MEDS: metFORMIN 500 MG TAB PO SCH ×2 (08:37→18:05)
[2017-02-04 11:44] LABS: BLAST% (M) 14 % (0-0); BLASTOCYTES #M 26.8 10^3/ul (0.0-0.0); LYMPHOCYTES # 15.2 10^3/ul (0.8-2.9); METAMYELOCYTES %M 1 % (0-0); MONOCYTE # 9.7 10^3/ul (0.3-0.9); MONOCYTES % (M) 7 % (0-11); MYELOCYTES % (M) 3 % (0-0); PROMYELOCYTES #M 1 10^3/ul (0-0); PROMYELOCYTES % (M) 1 % (0-0)
[2017-02-04] MEDS: HYDROXYUREA 500 MG CAP PO SCH ×3 (12:34→21:46)
--- NOTE | 2017-02-04 13:18 | HP ---
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 Hematology oncology did see the patient. He was discharged home and the family brought him back within 2 days. Given the totality situation and that he is not a candidate for definitive therapy we need to have a careful discussion with the family members again about the long-term goals of treatment with an eye toward hospice versus palliative care. (2) GERD (gastroesophageal reflux disease) Status: Chronic Comment: Noted. Qualifiers: Esophagitis presence: without esophagitis Qualified Code: K21.9 - Gastroesophageal reflux disease without esophagitis (3) Hyperuricemia Status: Chronic Comment: Noted. (4) Hyperlipidemia Status: Chronic Comment: Under present circumstances additional medications will not be useful or beneficial to his life Qualifiers: Hyperlipidemia type: pure hypercholesterolemia Qualified Code: E78.00 - Pure hypercholesterolemia (5) Type 2 diabetes mellitus without complications Status: Chronic Comment: Continue treatment. Qualifiers: Diabetes mellitus nursing home insulin use: without nursing home use Qualified Code: E11.9 - Type 2 diabetes mellitus without complication, without long-term current use of insulin (6) MDS (myelodysplastic syndrome) Status: Chronic Comment: As per hematology budget consultant. This is turning on S and is is a very difficult and unfortunate situation. Compounding this is the patient's chronic encephalopathy (7) Encephalopathy chronic Status: Chronic Comment: His ability to care for himself is not present. It appears that his family's ability to care for himself is also significantly compromised. Will need case management and social work to assist. HPI/ROS Admit Date/Time Admit Date/Time Feb 03, 2017 at 21:43 Hx of Present Illness 71-year-old gentleman with a long-term myelodysplastic syndrome with erythroid failure. 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 Been on treatment for this through Dr. Monahan but has now come in on January 31 blasts seen on this smear with marked leukocytosis. Time was opted to treat him with hydroxyurea and not give him chemotherapy as we thought that the therapeutics would be far more likely to cause harm than benefit. He was discharged home under the family's care where he made at 36-48 hours before they brought him into the emergency room. He is not able to be managed at home ROS Patient is unable to give meaningful history which is a chronic situation. PMH/Family/Social Past Medical History Myelodysplastic syndrome; acute leukemia transformation; hyperuricemiagout; diabetes mellitus type 2; erythroid failure with iron overload from transfusion ; chronic encephalopathy. 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 Past Surgical History Past Surgical Hx: no surgical history, noncontributory Family History Significant Family History: no pertinent family hx Social History Alcohol Use: none Smoking Status: Never smoker Drug Use: none Exam/Review of Systems Vital Signs Vitals Vital Signs Date Time Temp Pulse Resp B/P Pulse Ox O2 Delivery O2 Flow Rate FiO2 02/04/17 12:52 99.8 106 16 105/58 96 02/04/17 02:31 Nasal Cannula 02/03/17 23:14 2.0 Intake and Output 02/03/17 02/03/17 02/04/17 15:00 23:00 07:00 Intake Total 100 ml Balance 100 ml Exam Exam Elderly gentleman in bed who is pleasant but unable unable to give meaningful history. Alert but not oriented Constitutional: alert Neck: non-tender, supple Respiratory: clear to auscultation, normal air movement Cardiovascular: nl pulses, regular rate and rhythm Gastrointestinal: hepatomegaly, non-tender, soft, splenomegaly Neurological: COLORIST FORMULATOR II-XII intact, confused, other (A few slightly weak) Skin: nl turgor, rash or lesions Labs Result Diagram: 02/04/17 0456 02/04/17 0456 Medications Medications Current Medications Ondansetron HCl (Zofran Tab) 4 mg Q6H PRN PO NAUSEA AND/OR VOMITING; Start at 22:00 Ondansetron HCl (Zofran Inj) 4 mg Q6H PRN IV NAUSEA AND/OR VOMITING; Start at 22:00 Acetaminophen/ Hydrocodone Bitart ([place] (5/325)) 1 tab Q6H PRN PO MODERATE PAIN LEVEL 4-6 Last administered on 02/04/17t 00:16; Admin Dose 1 TAB; Start at 22:00 Magnesium Hydroxide (Milk Of Mag) 30 ml DAILY PRN PO CONSTIPATION; Start at 22:00 Bisacodyl (Dulcolax Supp) 10 mg DAILY PRN [place] CONSTIPATION; Start 02/03/17 at 22 :00 Famotidine (Pepcid) 20 mg Q12 PO Last administered on 02/04/17 08:37; Admin Dose 20 MG; Start 02/04/17 at 09:00 Fenofibrate (Tricor) 145 mg DAILY PO Last administered on 02/04/17 08:37; Admin Dose 145 MG; Start 02/04/17 at 09:00 Hydroxyurea (Hydrea) 500 mg BID PO ; Start 02/04/17 at 09:00 Pantoprazole (Protonix Tab) 40 mg DAILY PO Last administered on 02/04/17 08:37 ; Admin Dose 40 MG; Start 02/04/17 at 09:00 Diagnostic Test (Pha) (Accu-Chek) 1 ea 02 XX ; Start 02/04/17 at 02:00 Miscellaneous Information 1 ea NOTE XX ; Start 02/03/17 at 23:00 Glucose (Glutose) 15 gm Q15M PRN PO DECREASED GLUCOSE; Start 02/03/17 at 23:00 Glucose (Glutose) 22.5 gm Q15M PRN PO DECREASED GLUCOSE; Start 02/03/17 at 23: 00 Dextrose (D50w Syringe) 25 ml Q15M PRN IV DECREASED GLUCOSE; Start 02/03/17 at 23:00 Dextrose (D50w Syringe) 50 ml Q15M PRN IV DECREASED GLUCOSE; Start 02/03/17 at 23:00 Glucagon (Glucagen) 1 mg Q15M PRN IM DECREASED GLUCOSE; Start 02/03/17 at 23:00 Glucose 15 gm 15 gm Q15M PRN BUCCAL DECREASED GLUCOSE; Start 02/03/17 at 23:00 Cefepime HCl 50 ml @ 100 mls/hr Q12 IVPB ; Start 02/04/17 at 21:00; Stop at 20:59; Status UNV Dextrose/Sodium Chloride (D5-NS) 1,000 ml @ 100 mls/hr Q10H IV ; Start at 13:30; Status UNV CHRISTI THOMAS MD Feb 04, 2017 13:18
[2017-02-04] MEDS ORDERED: DIPHENHYDRAMINE 25 MG CAP PO PRN (13:30)
[2017-02-04] MEDS ORDERED: ACETAMINOPHEN 325 MG TAB PO PRN (13:30)
[2017-02-04] MEDS: DEXTROSE 5%-0.9% NACL 1,000 ML IV SCH ×2 (14:19→22:42)
[2017-02-04] MEDS: CEFEPIME 1GM/50 ML (PMX) 50 ML IVPB SCH (15:53)
[2017-02-04 16:38] LABS: MONOCYTES % (M) 0 % (0-11)
[2017-02-04 16:39] LABS: METAMYELOCYTES %M 3 % (0-0); MYELOCYTES % (M) 2 % (0-0); PROMYELOCYTES % (M) 2 % (0-0)
[2017-02-04 16:44] LABS: PATH REVIEW Yes; PATH REVIEWED BY WS and CH
[2017-02-04 16:48] LABS: BLAST% (M) 26 % (0-0)
[2017-02-04 16:54] LABS: PROMYELOCYTES #M 0 10^3/ul (0-0)
[2017-02-04 16:56] LABS: EOSINOPHILS % (M) 0 % (0.0-7.0)
[2017-02-04] MEDS ORDERED: ACETAMINOPHEN 325 MG TAB PO ONE (22:00)
--- NOTE | 2017-02-05 00:50 | CONS ---
DATE OF ADMISSION: 02/03/2017 DATE OF CONSULTATION: 02/05/2017 REASON FOR CONSULTATION: Myelodysplastic syndrome evolving into an acute leukemia. REFERRING PHYSICIAN: Romeo Holley MD HISTORY OF PRESENT ILLNESS: Thank you very much for asking me to see this very interesting, pleasant gentleman in Hematologic and Oncologic consultation. As you know, I am very familiar with Mr. Iglesias, who is a 71-year-old male who has a history of a myelodysplastic syndrome. Patient recently; however, has developed increasing transfusion requirements, as well as a leukocytosis. The patient has now developed increased number of circulating myeloblasts, and it is felt that the patient's diagnosis has now evolved into an acute leukemia. In the past the patient has been treated with hypomethylating agents such as azacitidine and also immunomodulating agents such as lenalidomide. Unfortunately, the patient has not responded to any of these therapies. The patient was actually seen in the office on 01/28. At that time, he was started on hydroxyurea 500 mg twice a day. Patient is now admitted; however, with increasing symptoms of weakness and fatigue. Patient was admitted to the hospital on 01/31/2017 and discharged on 02/01/2017, only to be readmitted on 02/02/2017. On admission at this time, the patient's white count is 151,500, with approximately 26 percent blasts seen on today's peripheral smear. Hemoglobin today is 7.9, hematocrit 24.3, and platelet count 97,000. The patient has become increasingly fatigued and weak. Patient was unable to be cared for at home. PAST MEDICAL HISTORY: Includes the mention of myelodysplastic syndrome. 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 He has had a history as well of gastroesophageal reflux and hyperuricemia with gouty arthritis. The patient has had no surgeries. MEDICATIONS: Have included: 1. Famotidine 20 mg daily. 2. Tricor 40 mg daily. 3. As noted, the patient was also started on hydroxyurea 500 mg twice on 01/29/2017. ALLERGIES: PATIENT HAS NO KNOWN ALLERGIES. PHYSICAL EXAMINATION: GENERAL: At this time reveals a well-developed, but chronically ill-appearing male, who is no acute distress, but is lethargic. VITAL SIGNS: Temperature 98, pulse 101 and regular, respirations 20, blood pressure 123/66, pulse oximetry 96 percent on 2 L by nasal cannula. SKIN: No ecchymoses or petechiae, but there is hyperpigmentation consistent with iron overload with iron deposition. HEENT: Normocephalic, no evidence of trauma. The pupils are equal, round, react to light and accommodation. Sclerae are nonicteric. NECK: Supple. No jugular vein distention or thyroid enlargement. CHEST: Clear to auscultation and percussion. No rhonchi, wheezes, rales, or rubs. There is no pain on percussion of sternum, clavicles or ribs. HEART: Sinus tachycardia. No S3, S4, or murmur, no rub. ABDOMEN: Flat. There is marked tenderness on palpation of the left upper quadrant, with the spleen being palpable approximately 7 cm below the left costal margin in the anterior axillary line. EXTREMITIES: Good range of motion. No clubbing, edema, or cyanosis. No palpable cords or Homans sign. NEUROLOGIC: Reveals no focal neurologic abnormalities, but the patient is lethargic but arousable. DISCUSSION: As noted, this patient has had a diagnosis of myelodysplastic syndrome, which has been refractory to therapy. Recently, his red blood cell transfusion requirement has been increasing. Also in the past 1-2 weeks, the patient has had an increasing white blood cell count, with now the appearance of approximately 25 percent myeloblasts. This picture is consistent with evolution of the myelodysplastic syndrome into acute myeloblastic leukemia. I do not feel that this patient would benefit from the usual induction chemotherapy necessary for acute leukemia. The morbidity would be great. Also, patients with acute leukemia which has evolved from a myelodysplastic syndrome have a decreased responsiveness to therapy. Once again, thank you very much for the opportunity of participating in the medical care of this very interesting and pleasant patient. I will be happy to follow this patient with you and assist in his hematologic and oncologic evaluation and follow up as necessary. Dictated By: Vinod Monahan MD /estrellita/andrew /Document#: [id number]
[2017-02-05] MEDS: ACCU-CHEK XX SCH (02:00)
[2017-02-05] MEDS: CEFEPIME 1GM/50 ML (PMX) 50 ML IVPB SCH ×3 (02:44→20:44)
[2017-02-05] MEDS: DEXTROSE 5%-0.9% NACL 1,000 ML IV SCH (04:43)
--- NOTE | 2017-02-05 07:03 | PQ ---
Date/Time of Note Date/Time of Note DATE: 02/05/17 TIME: 06:[address] Holley, A review of the medical record found a need for documentation clarification. 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 To facilitate accurate and complete coding, please jered ( x ) the suspected diagnosis that apply: ( ) Metabolic encephalopathy ( X ) Other encephalopathy ( ) Clinically undetermined ( ) Others____cHRONIC ENCEPHALOPATHY, dEMENTIA Please provide your response by clicking edit document, making your choice ( x ), click ok/save and finally click sign. You may also document your response on your progress notes. Thank you for your time. With appreciation, Manny Gomez, RN, BSN, CCS, CCDS Clinical Hazardous Substances Engineer Health Information Management, CDI and Coding Services [phone] Room # 1525 - [address]~ [address] MANNY GOMEZ Feb 05, 2017 07:03 CHRISTI HOLLEY MD Feb 05, 2017 10:00
[2017-02-05 07:24] VITALS: BP 110/67; RESP 20
[2017-02-05] MEDS: FAMOTIDINE 20 MG TAB PO SCH ×2 (08:33→20:44)
[2017-02-05] MEDS: PANTOPRAZOLE (EC) 40 MG TAB PO SCH (08:33)
[2017-02-05] MEDS: metFORMIN 500 MG TAB PO SCH ×2 (08:33→17:50)
[2017-02-05] MEDS: FENOFIBRATE 145 MG TAB PO SCH (08:33)
[2017-02-05] MEDS: INSULIN ASPART [NOVOLOG] 3 ML PEN SC SCH ×4 (08:43→20:50)
--- NOTE | 2017-02-05 08:43 | PN ---
Date/Time of Note Date/Time of Note DATE: 02/05/17 TIME: 08:38 Assessment/Plan VTE Prophylaxis VTE Prophylaxis Intervention: SCD's Lines/Catheters IV Catheter Type (from Nrsg): Peripheral IV Subjective 24 Hr Interval Summary Free Text/Dictation 71 yrold german male with loing standing mds who is now in acute dleukemic blast crisis. treatment would be fatal as is the disease. have had family discussions with son, will do so again later, best course at this point would be palliative care only. he is afebrile, somewhat altered. diadbetes, ok on cutrrfent regimen, is eating beta thallasemia routine health care...will need employment evaluator/case manager help here labs ok except for hemogram,, transfused last night, would hold off at this point. lungs clear, hr ok, abd soft, liver palp, non tender no edema Exam/Review of Systems Vital Signs Vitals Vital Signs Date Time Temp Pulse Resp B/P Pulse Ox O2 Delivery O2 Flow Rate FiO2 02/05/17 07:50 Nasal Cannula 2.0 02/05/17 07:24 98.3 101 20 110/67 99 Intake and Output 02/04/17 02/04/17 02/05/17 15:00 23:00 07:00 Intake Total 270 ml 1625 ml Output Total 400 ml Balance 270 ml 1225 ml Results Result Diagram: 02/04/17 0456 02/04/17 0456 Results 24 hrs Laboratory Tests Test 02/04/17 12:03 02/04/17 17:40 02/04/17 19:38 02/04/17 21:42 Bedside Glucose 120 205 161 108 Medications Medications Current Medications Ondansetron HCl (Zofran Tab) 4 mg Q6H PRN PO NAUSEA AND/OR VOMITING; Start at 22:00 Ondansetron HCl (Zofran Inj) 4 mg Q6H PRN IV NAUSEA AND/OR VOMITING; Start at 22:00 Acetaminophen/ Hydrocodone Bitart ([place] (5/325)) 1 tab Q6H PRN PO MODERATE PAIN LEVEL 4-6 Last administered on 02/04/17t 00:16; Admin Dose 1 TAB; Start at 22:00 Magnesium Hydroxide (Milk Of Mag) 30 ml DAILY PRN PO CONSTIPATION; Start at 22:00 Bisacodyl (Dulcolax Supp) 10 mg DAILY PRN [place] CONSTIPATION; Start 02/03/17 at 22 :00 Famotidine (Pepcid) 20 mg Q12 PO Last administered on 02/04/17 21:43; Admin Dose 20 MG; Start 02/04/17 at 09:00 Fenofibrate (Tricor) 145 mg DAILY PO Last administered on 02/04/17 08:37; Admin Dose 145 MG; Start 02/04/17 at 09:00 Hydroxyurea (Hydrea) 500 mg BID PO Last administered on 02/04/17 21:46; Admin Dose 500 MG; Start 02/04/17 at 09:00 Pantoprazole (Protonix Tab) 40 mg DAILY PO Last administered on 02/04/17 08:37 ; Admin Dose 40 MG; Start 02/04/17 at 09:00 Diagnostic Test (Pha) (Accu-Chek) 1 ea 02 XX ; Start 02/04/17 at 02:00 Miscellaneous Information 1 ea NOTE XX ; Start 02/03/17 at 23:00 Glucose (Glutose) 15 gm Q15M PRN PO DECREASED GLUCOSE; Start 02/03/17 at 23:00 Glucose (Glutose) 22.5 gm Q15M PRN PO DECREASED GLUCOSE; Start 02/03/17 at 23: 00 Dextrose (D50w Syringe) 25 ml Q15M PRN IV DECREASED GLUCOSE; Start 02/03/17 at 23:00 Dextrose (D50w Syringe) 50 ml Q15M PRN IV DECREASED GLUCOSE; Start 02/03/17 at 23:00 Glucagon (Glucagen) 1 mg Q15M PRN IM DECREASED GLUCOSE; Start 02/03/17 at 23:00 Glucose 15 gm 15 gm Q15M PRN BUCCAL DECREASED GLUCOSE; Start 02/03/17 at 23:00 Cefepime HCl 50 ml @ 100 mls/hr Q12 IVPB Last administered on 02/05/17 02:44 ; Admin Dose 100 MLS/HR; Start 02/04/17 at 14:00; Stop 02/09/17 at 13:59 Dextrose/Sodium Chloride (D5-NS) 1,000 ml @ 100 mls/hr Q10H IV Last administered on 02/05/17 04:43; Admin Dose 100 MLS/HR; Start 02/04/17 at 13:30 ; Stop 02/05/17 at 09:29 Acetaminophen (Tylenol Tab) 325 mg Q6H PRN PO PAIN AND OR ELEVATED TEMP; Start 02/04/17 at 13:30 Diphenhydramine HCl (Benadryl) 25 mg Q6H PRN PO ITCHING; Start 02/04/17 at 13: 30 FRANCHESKA ROBISON MD Feb 05, 2017 08:43
[2017-02-05] MEDS: HYDROXYUREA 500 MG CAP PO SCH ×2 (08:44→20:46)
[2017-02-05 11:47] LABS: CALCIUM 8.9 mg/dl (8.4-10.2); CREATININE 0.79 mg/dl (0.61-1.24); POTASSIUM 3.9 mmol/L (3.5-5.1)
[2017-02-05 11:53] LABS: ABNORMAL IP MESSAGE 1; BASOPHIL # 1.6 10^3/ul (0.0-0.1); BASOPHILS % 1.6 % (0.0-2.0); HEMATOCRIT 26.2 % (42.0-52.0); HEMOGLOBIN 8.6 g/dl (14.0-18.0); LYMPHOCYTES # 9.7 10^3/ul (0.8-2.9); LYMPHOCYTES % 9.8 % (15.0-51.0); MEAN CORPUSCULAR HEMOGLOBIN 28.5 pg (29.0-33.0); MEAN CORPUSCULAR HGB CONC 32.8 g/dl (32.0-37.0); MEAN CORPUSCULAR VOLUME 86.8 fl (82.0-101.0); MONOCYTE # 28.5 10^3/ul (0.3-0.9); NEUTROPHILS % 48.9 % (39.0-77.0); NUCLEATED RED BLOOD CELLS # 0.1 10^3/ul (0.0-0.0); NUCLEATED RED BLOOD CELLS% 0.1 /100WBC (0.0-0.0); RED BLOOD COUNT 3.02 10^6/ul (4.70-6.10); RED CELL DISTRIBUTION WIDTH 16.9 % (11.5-14.5); WHITE BLOOD COUNT 99.5 10^3/ul (4.8-10.8)
[2017-02-05 12:05] LABS: MONOCYTES % 28.6 % (0.0-11.0)
[2017-02-05 12:06] LABS: PLATELET COUNT 89 10^3/UL (140-415)
[2017-02-05 13:25] LABS: ANISOCYTOSIS 1+ (0-0); BLAST% (M) 9 % (0-0); GIANT THROMBO% (M) 13 % (0-0); METAMYELOCYTES %M 1 % (0-0); MONOCYTES % (M) 15 % (0-11); MYELOCYTES % (M) 1 % (0-0); OVALOCYTES 1+ (0-0); PLATELET ESTIMATE DECREASED; PROMYELOCYTES #M 2 10^3/ul (0-0); PROMYELOCYTES % (M) 2 % (0-0)
[2017-02-05 14:00] VITALS: BP 114/63; RESP 20
--- NOTE | 2017-02-05 16:56 | EN ---
Date/Time of Note Date/Time of Note DATE: 02/05/17 TIME: 16:53 Event Note Medicine Medicine Event Note met with son and his case management manager discussed dx of leukemia with poor prognosis and the fact that treatment will be futile. they are having trouble coming to terms with this issue. have asked them to consider dnr and son wishes to discuss with family before dhe can decide. have recodmmended home hospice for palliative, end of life care which they are also considering. for now will transfuse as needed during hospital stay FRANCHESKA ROBISON MD Feb 05, 2017 16:56
--- NOTE | 2017-02-05 19:10 | PN ---
DATE: 02/05/2017 SUBJECTIVE DATA: The patient is lethargic but arousable. Not complaining of pain at this time. OBJECTIVE DATA: GENERAL: The patient is a well-developed, chronically ill- appearing and cachectic male who is lethargic. VITAL SIGNS: Temperature 97.5, pulse 114, and regular, respirations 20, blood pressure 114/63. Pulse oximetry 99 percent on 2 liters of oxygen. SKIN: No ecchymosis, petechiae or rashes, but there is "bronzing". HEENT: Normocephalic, no evidence of trauma. There is no scleral icterus. Oral mucosa is moist without lesions. Tongue is well-papillated. No gingival hyperplasia. NECK: Neck is supple. No jugular distention, or thyroid enlargement. CHEST: Chest is clear to auscultation, percussion. No rhonchi, wheezes, rales, or rubs. LUNGS: Lungs are clear. No rhonchi, wheezes, rales or rubs. HEART: Sinus tachycardia. No S3, S4, or murmurs. NODES: No palpable lymphadenopathy. ABDOMEN: Flat and soft. Although there is splenomegaly which is tender to palpation. There are no rubs heard over the spleen. Bowel sounds are active. EXTREMITIES: Good range of motion. No clubbing or cyanosis. No palpable cords or Homans sign. NEUROLOGIC: Neurologic is reveals no focal neurologic exam abnormalities, but the patient is weak and lethargic. LABORATORY AND DIAGNOSTIC DATA: White count today is 99,500, with hemoglobin 8.6, hematocrit 26.2, and platelet count 89,000. Sodium 143, potassium 3.9, BUN 14, creatinine 0.79, calcium 8.9. The patient's CT scan of the abdomen and pelvis done 02/03/2017 does show splenomegaly which is mildly increased. There are multiple chronic foci splenic infarcts seen. Hepatomegaly is present as well. There is no lymphadenopathy. ASSESSMENT: 1. 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 2. Beta thalassemia trait. PLAN: I have discussed the situation with the family. I have informed them that the patient's myelodysplastic syndrome has evolved into acute leukemia and that he is not a candidate for induction chemotherapy. I have told them that this is highly toxic and the results before in patients who have acute leukemia which has evolved from myelodysplastic syndrome are poor. We will continue the patient on hydroxyurea at this time. We will also start the patient on Megastrol 400 mg twice a day. Also will consider the use of cytosine arabinoside in attempt to ameliorate the process. I have requested that the family consider a DNR status. They are considering this at the present time. Dictated By: Vinod Monahan MD /estrellita/carmelo /Document#: [id number]
[2017-02-05 20:21] VITALS: BP 104/61; RESP 19
[2017-02-05] MEDS: MEGESTROL (40 MG/ML) 10ML CUP PO SCH (20:44)
[2017-02-06] MEDS: ACCU-CHEK XX SCH (01:25)
[2017-02-06 02:29] VITALS: BP 108/58; RESP 17
[2017-02-06 07:49] VITALS: BP 99/64; RESP 18
[2017-02-06] MEDS: INSULIN ASPART [NOVOLOG] 3 ML PEN SC SCH ×4 (07:50→21:00)
[2017-02-06 08:00] LABS: ALBUMIN/GLOBULIN RATIO 0.75
[2017-02-06 08:06] LABS: ALBUMIN 2.7 g/dl (3.3-4.9); BILIRUBIN,INDIRECT 0.8 mg/dl (0-1.1); BILIRUBIN,TOTAL 0.8 mg/dl (0.2-1.3); CALCIUM 9.4 mg/dl (8.4-10.2); CREATININE 0.82 mg/dl (0.61-1.24); POTASSIUM 3.8 mmol/L (3.5-5.1); TOTAL PROTEIN 6.3 g/dl (6.1-8.1)
[2017-02-06] MEDS: FENOFIBRATE 145 MG TAB PO SCH (08:20)
[2017-02-06] MEDS: FAMOTIDINE 20 MG TAB PO SCH ×2 (08:20→20:58)
[2017-02-06] MEDS: PANTOPRAZOLE (EC) 40 MG TAB PO SCH (08:20)
[2017-02-06] MEDS: CEFEPIME 1GM/50 ML (PMX) 50 ML IVPB SCH ×2 (08:24→21:00)
[2017-02-06] MEDS: HYDROXYUREA 500 MG CAP PO SCH ×2 (08:29→20:59)
--- NOTE | 2017-02-06 08:37 | PN ---
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 Given his overall health status induction chemotherapy would far more likely cause significant damage or then not treating. This was discussed with the family as documented by Dr. Monahan and Dr. Trevino. The family's take home from this was that there is hope for the patient to live 20 more years and that he will be receiving chemotherapy. We will keep trying to educate the family as best we can in this poor prognosis situation. At this time we are right on the edge of futile care which would be medically inappropriate and ineffective. For now he is receiving hydroxyurea to bring down the white count a little bit to keep him from having a hypercoagulable event (2) Beta thalassemia Status: Chronic Comment: Noted. (3) Diastolic dysfunction Status: Chronic Comment: Noted. (4) Hyperuricemia Status: Chronic Comment: On treatment. (5) Hyperlipidemia Status: Chronic Comment: Noted. 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 As such we will deal with the people who speak for him which is his blood relatives family Subjective 24 Hr Interval Summary Free Text/Dictation Patient reports no complaints answers yes to all questions unless carefully directed Constitutional: no complaints (Denies any fevers chills or sweats) Respiratory: no complaints (Quickly denies shortness of breath cough or wheezing) Cardiovascular: no complaints (Symmetrically denies chest pain, PND, orthopnea) Gastrointestinal: no complaints (Specifically denies nausea or abdominal pain) Exam/Review of Systems Vital Signs Vitals Vital Signs Date Time Temp Pulse Resp B/P Pulse Ox O2 Delivery O2 Flow Rate FiO2 02/06/17 07:49 99.1 107 18 99/64 91 02/05/17 20:00 Nasal Cannula 2.0 Intake and Output 02/05/17 02/05/17 02/06/17 15:00 23:00 07:00 Intake Total 50 ml 1620 ml 450 ml Balance 50 ml 1620 ml 450 ml Exam Cachectic Fredy male laying in bed pleasant Constitutional: alert (Oriented to person not place or time) Neck: non-tender, supple Respiratory: clear to auscultation, normal air movement Cardiovascular: nl pulses, regular rate and rhythm Results Result Diagram: 02/05/17 1010 02/06/17 0654 Results 24 hrs Laboratory Tests Test 02/05/17 10:10 02/05/17 12:41 02/05/17 17:47 02/05/17 20:43 White Blood Count 99.5 #H Red Blood Count 3.02 L Hemoglobin 8.6 L Hematocrit 26.2 L Mean Corpuscular Volume 86.8 Mean Corpuscular Hemoglobin 28.5 L Mean Corpuscular Hemoglobin Concent 32.8 Red Cell Distribution Width 16.9 H Platelet Count 89 L Mean Platelet Volume Neutrophils % 48.9 Segmented Neutrophils % (Manual) 60 Band Neutrophils % (Manual) 1 Lymphocytes % 9.8 L Lymphocytes % (Manual) 11 L Monocytes % 28.6 H Monocytes % (Manual) 15 H Eosinophils % 0.0 Basophils % 1.6 Metamyelocytes % (manual) 1 H Myelocytes % (Manual) 1 H Promyelocytes % (Manual) 2 H Blast Cells % (Manual) 9 H Nucleated Red Blood Cells % 0.1 H Neutrophils # (Manual) 60.6 H Band Neutrophils # 0.9 H Absolute Lymphocytes (Manual) 10.9 H Lymphocytes # 9.7 H Monocytes # 28.5 H Absolute Monocytes (Manual) 14.9 H Eosinophils # 0.0 Basophils # 1.6 H Metamyelocytes # 0.9 H Myelocytes # 0.9 H Promyelocytes # 2 H Nucleated Red Blood Cells # 0.1 H Thrombocytosis 13 H Platelet Estimate DECREASED Anisocytosis 1+ Ovalocytes 1+ Sodium Level 143 Potassium Level 3.9 Chloride Level 111 H Carbon Dioxide Level 22 Anion Gap 14 Blood Urea Nitrogen 19 Creatinine 0.79 Glucose Level 137 Calcium Level 8.9 Bedside Glucose 130 99 115 Test 02/06/17 06:54 02/06/17 08:28 White Blood Count Pending Red Blood Count Pending Hemoglobin Pending Hematocrit Pending Mean Corpuscular Volume Pending Mean Corpuscular Hemoglobin Pending Mean Corpuscular Hemoglobin Concent Pending Red Cell Distribution Width Pending Platelet Count Pending Mean Platelet Volume Pending Sodium Level 144 Potassium Level 3.8 Chloride Level 109 Carbon Dioxide Level 22 Anion Gap 17 H Blood Urea Nitrogen 18 Creatinine 0.82 Glucose Level 105 Calcium Level 9.4 Total Bilirubin 0.8 Direct Bilirubin 0.00 Indirect Bilirubin 0.8 Aspartate Amino Transf (AST/SGOT) 30 Alanine Aminotransferase (ALT/SGPT) 32 Alkaline Phosphatase 57 Total Protein 6.3 Albumin 2.7 L Globulin 3.60 H Albumin/Globulin Ratio 0.75 Bedside Glucose 130 Medications Medications Current Medications Ondansetron HCl (Zofran Tab) 4 mg Q6H PRN PO NAUSEA AND/OR VOMITING; Start at 22:00 Ondansetron HCl (Zofran Inj) 4 mg Q6H PRN IV NAUSEA AND/OR VOMITING; Start at 22:00 Acetaminophen/ Hydrocodone Bitart ([place] (5/325)) 1 tab Q6H PRN PO MODERATE PAIN LEVEL 4-6 Last administered on 02/04/17 00:16; Admin Dose 1 TAB; Start at 22:00 Magnesium Hydroxide (Milk Of Mag) 30 ml DAILY PRN PO CONSTIPATION; Start at 22:00 Bisacodyl (Dulcolax Supp) 10 mg DAILY PRN [place] CONSTIPATION; Start 02/03/17 at 22 :00 Famotidine (Pepcid) 20 mg Q12 PO Last administered on 02/05/17 20:44; Admin Dose 20 MG; Start 02/04/17 at 09:00 Fenofibrate (Tricor) 145 mg DAILY PO Last administered on 02/05/17 08:33; Admin Dose 145 MG; Start 02/04/17 at 09:00 Hydroxyurea (Hydrea) 500 mg BID PO Last administered on 02/05/17 20:46; Admin Dose 500 MG; Start 02/04/17 at 09:00 Pantoprazole (Protonix Tab) 40 mg DAILY PO Last administered on 02/05/17 08:33 ; Admin Dose 40 MG; Start 02/04/17 at 09:00 Diagnostic Test (Pha) (Accu-Chek) 1 ea 02 XX ; Start 02/04/17 at 02:00 Miscellaneous Information 1 ea NOTE XX ; Start 02/03/17 at 23:00 Glucose (Glutose) 15 gm Q15M PRN PO DECREASED GLUCOSE; Start 02/03/17 at 23:00 Glucose (Glutose) 22.5 gm Q15M PRN PO DECREASED GLUCOSE; Start 02/03/17 at 23: 00 Dextrose (D50w Syringe) 25 ml Q15M PRN IV DECREASED GLUCOSE; Start 02/03/17 at 23:00 Dextrose (D50w Syringe) 50 ml Q15M PRN IV DECREASED GLUCOSE; Start 02/03/17 at 23:00 Glucagon (Glucagen) 1 mg Q15M PRN IM DECREASED GLUCOSE; Start 02/03/17 at 23:00 Glucose 15 gm 15 gm Q15M PRN BUCCAL DECREASED GLUCOSE; Start 02/03/17 at 23:00 Cefepime HCl (Maxipime 1gm/50 ml (Pmx)) 50 ml @ 100 mls/hr Q12 IVPB Last administered on 02/05/17 20:44; Admin Dose 100 MLS/HR; Start 02/04/17 at 14:00 ; Stop 02/09/17 at 13:59 Acetaminophen (Tylenol Tab) 325 mg Q6H PRN PO PAIN AND OR ELEVATED TEMP Last administered on 02/05/17 20:44; Admin Dose 325 MG; Start 02/04/17 at 13:30 Diphenhydramine HCl (Benadryl) 25 mg Q6H PRN PO ITCHING; Start 02/04/17 at 13: 30 Megestrol Acetate (Megace Susp) 400 mg BID PO Last administered on 02/05/17 20 :44; Admin Dose 400 MG; Start 02/05/17 at 21:00 CHRISTI THOMAS MD Feb 06, 2017 08:36
[2017-02-06 08:41] LABS: ABNORMAL IP MESSAGE 1; HEMATOCRIT 26.6 % (42.0-52.0); HEMOGLOBIN 8.7 g/dl (14.0-18.0); MEAN CORPUSCULAR HEMOGLOBIN 28.2 pg (29.0-33.0); MEAN CORPUSCULAR HGB CONC 32.7 g/dl (32.0-37.0); MEAN CORPUSCULAR VOLUME 86.4 fl (82.0-101.0); NUCLEATED RED BLOOD CELLS% 0.1 /100WBC (0.0-0.0); PLATELET COUNT 91 10^3/UL (140-415); POSITIVE DIFF @See below; RED BLOOD COUNT 3.08 10^6/ul (4.70-6.10); RED CELL DISTRIBUTION WIDTH 17.2 % (11.5-14.5); WHITE BLOOD COUNT 104.8 10^3/ul (4.8-10.8)
[2017-02-06] MEDS: metFORMIN 500 MG TAB PO SCH ×2 (08:51→17:55)
[2017-02-06] MEDS: MEGESTROL (40 MG/ML) 10ML CUP PO SCH ×2 (08:51→20:58)
[2017-02-06 11:09] LABS: ANISOCYTOSIS 2+ (0-0); BLAST% (M) 10 % (0-0); GIANT THROMBO% (M) 9 % (0-0); METAMYELOCYTES %M 1 % (0-0); MONOCYTES % (M) 10 % (0-11); PLATELET ESTIMATE DECREASED; POIKILOCYTOSIS 3+ (0-0); POLYCHROMASIA 3+ (0-0)
--- NOTE | 2017-02-06 13:50 | PN ---
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 Hydrea is being given but the likelihood of success is extremely poor. Comfort care would be the most appropriate approach but the family is not able to emotionally accept this yet. Subjective 24 Hr Interval Summary Free Text/Dictation Pt remains very weak and difficult to communicate with Exam/Review of Systems Vital Signs Vitals Vital Signs Date Time Temp Pulse Resp B/P Pulse Ox O2 Delivery O2 Flow Rate FiO2 02/06/17 07:49 99.1 107 18 99/64 91 02/05/17 20:00 Nasal Cannula 2.0 Intake and Output 02/05/17 02/05/17 02/06/17 15:00 23:00 07:00 Intake Total 50 ml 1620 ml 450 ml Balance 50 ml 1620 ml 450 ml Exam Constitutional: other (pallor) Head: normocephalic Neck: supple Respiratory: clear to auscultation Cardiovascular: regular rate and rhythm Gastrointestinal: non-tender, soft Skin: other (atrophic) Results Result Diagram: 02/06/17 0654 02/06/17 0654 Results 24 hrs Laboratory Tests Test 02/05/17 17:47 02/05/17 20:43 02/06/17 06:54 02/06/17 08:28 Bedside Glucose 99 115 130 White Blood Count 104.8 H Red Blood Count 3.08 L Hemoglobin 8.7 L Hematocrit 26.6 L Mean Corpuscular Volume 86.4 Mean Corpuscular Hemoglobin 28.2 L Mean Corpuscular Hemoglobin Concent 32.7 Red Cell Distribution Width 17.2 H Platelet Count 91 L Mean Platelet Volume Neutrophils % Segmented Neutrophils % (Manual) 60 Band Neutrophils % (Manual) 8 H Lymphocytes % Lymphocytes % (Manual) 13 L Monocytes % Monocytes % (Manual) 10 Eosinophils % Basophils % Metamyelocytes % (manual) 1 H Blast Cells % (Manual) 10 H Nucleated Red Blood Cells % 0.1 H Neutrophils # (Manual) 71.6 H Band Neutrophils # 8.3 H Absolute Lymphocytes (Manual) 13.6 H Lymphocytes # Monocytes # Absolute Monocytes (Manual) 10.4 H Eosinophils # Basophils # Metamyelocytes # 1.0 H Nucleated Red Blood Cells # Thrombocytosis 9 H Platelet Estimate DECREASED Dimorphic Red Blood Cells 2+ Polychromasia 3+ Poikilocytosis 3+ Anisocytosis 2+ Macrocytosis 1+ Sodium Level 144 Potassium Level 3.8 Chloride Level 109 Carbon Dioxide Level 22 Anion Gap 17 H Blood Urea Nitrogen 18 Creatinine 0.82 Glucose Level 105 Calcium Level 9.4 Total Bilirubin 0.8 Direct Bilirubin 0.00 Indirect Bilirubin 0.8 Aspartate Amino Transf (AST/SGOT) 30 Alanine Aminotransferase (ALT/SGPT) 32 Alkaline Phosphatase 57 Total Protein 6.3 Albumin 2.7 L Globulin 3.60 H Albumin/Globulin Ratio 0.75 Test 02/06/17 12:54 Bedside Glucose 113 Medications Medications Current Medications Ondansetron HCl (Zofran Tab) 4 mg Q6H PRN PO NAUSEA AND/OR VOMITING; Start at 22:00 Ondansetron HCl (Zofran Inj) 4 mg Q6H PRN IV NAUSEA AND/OR VOMITING; Start at 22:00 Acetaminophen/ Hydrocodone Bitart ([place] (5/325)) 1 tab Q6H PRN PO MODERATE PAIN LEVEL 4-6 Last administered on 02/04/17 00:16; Admin Dose 1 TAB; Start at 22:00 Magnesium Hydroxide (Milk Of Mag) 30 ml DAILY PRN PO CONSTIPATION; Start at 22:00 Bisacodyl (Dulcolax Supp) 10 mg DAILY PRN [place] CONSTIPATION; Start 02/03/17 at 22 :00 Famotidine (Pepcid) 20 mg Q12 PO Last administered on 02/06/17 08:20; Admin Dose 20 MG; Start 02/04/17 at 09:00 Fenofibrate (Tricor) 145 mg DAILY PO Last administered on 02/06/17 08:20; Admin Dose 145 MG; Start 02/04/17 at 09:00 Hydroxyurea (Hydrea) 500 mg BID PO Last administered on 02/06/17 08:29; Admin Dose 500 MG; Start 02/04/17 at 09:00 Pantoprazole (Protonix Tab) 40 mg DAILY PO Last administered on 02/06/17 08:20 ; Admin Dose 40 MG; Start 02/04/17 at 09:00 Diagnostic Test (Pha) (Accu-Chek) 1 ea 02 XX ; Start 02/04/17 at 02:00 Miscellaneous Information 1 ea NOTE XX ; Start 02/03/17 at 23:00 Glucose (Glutose) 15 gm Q15M PRN PO DECREASED GLUCOSE; Start 02/03/17 at 23:00 Glucose (Glutose) 22.5 gm Q15M PRN PO DECREASED GLUCOSE; Start 02/03/17 at 23: 00 Dextrose (D50w Syringe) 25 ml Q15M PRN IV DECREASED GLUCOSE; Start 02/03/17 at 23:00 Dextrose (D50w Syringe) 50 ml Q15M PRN IV DECREASED GLUCOSE; Start 02/03/17 at 23:00 Glucagon (Glucagen) 1 mg Q15M PRN IM DECREASED GLUCOSE; Start 02/03/17 at 23:00 Glucose 15 gm 15 gm Q15M PRN BUCCAL DECREASED GLUCOSE; Start 02/03/17 at 23:00 Cefepime HCl (Maxipime 1gm/50 ml (Pmx)) 50 ml @ 100 mls/hr Q12 IVPB Last administered on 02/06/17 08:24; Admin Dose 100 MLS/HR; Start 02/04/17 at 14:00 ; Stop 02/09/17 at 13:59 Acetaminophen (Tylenol Tab) 325 mg Q6H PRN PO PAIN AND OR ELEVATED TEMP Last administered on 02/05/17 20:44; Admin Dose 325 MG; Start 02/04/17 at 13:30 Diphenhydramine HCl (Benadryl) 25 mg Q6H PRN PO ITCHING; Start 02/04/17 at 13: 30 Megestrol Acetate (Megace Susp) 400 mg BID PO Last administered on 02/06/17 08 :51; Admin Dose 400 MG; Start 02/05/17 at 21:00 ANNA LANDIN MD Feb 06, 2017 13:50
[2017-02-06 19:53] VITALS: BP 111/62; PULSE 101; RESP 18
[2017-02-06 20:45] VITALS: BP 151/84; PULSE 115; RESP 18
[2017-02-06] MEDS: HYDROCODONE/APAP (5/325) TAB PO PRN (23:19)
[2017-02-07 00:54] VITALS: BP 105/59; PULSE 114; RESP 18
[2017-02-07] MEDS: ACCU-CHEK XX SCH (02:00)
[2017-02-07] MEDS: HYDROCODONE/APAP (5/325) TAB PO PRN ×3 (05:22→20:21)
[2017-02-07] MEDS: INSULIN ASPART [NOVOLOG] 3 ML PEN SC SCH ×4 (07:50→21:00)
[2017-02-07 08:14] VITALS: BP 108/63; RESP 20
[2017-02-07] MEDS: PANTOPRAZOLE (EC) 40 MG TAB PO SCH (08:51)
[2017-02-07] MEDS: FENOFIBRATE 145 MG TAB PO SCH (08:51)
[2017-02-07] MEDS: MEGESTROL (40 MG/ML) 10ML CUP PO SCH ×2 (08:51→21:22)
[2017-02-07] MEDS: metFORMIN 500 MG TAB PO SCH ×2 (08:51→17:55)
[2017-02-07] MEDS: FAMOTIDINE 20 MG TAB PO SCH ×2 (08:51→21:22)
[2017-02-07] MEDS: HYDROXYUREA 500 MG CAP PO SCH ×2 (08:54→21:25)
[2017-02-07] MEDS: CEFEPIME 1GM/50 ML (PMX) 50 ML IVPB SCH ×2 (09:02→20:23)
--- NOTE | 2017-02-07 11:22 | PN ---
DATE: 02/07/2017 SUBJECTIVE DATA: Mr. Crowe is minimally responsive. Does not appear to be uncomfortable. OBJECTIVE DATA: GENERAL: The patient is a cachectic and chronically ill- appearing male who is in no acute distress. He is lethargic. VITAL SIGNS: Temperature 98.2, pulse 112 per minute and regular, respirations 20, blood pressure 108/63, pulse oximetry is 90 percent on room air. SKIN: No ecchymosis, no petechiae or rashes. There is however "bronzing". HEART: Normocephalic, no evidence of trauma. The pupils equal, round, react to light and accommodation. Sclerae nonicteric. The conjunctivae and oral mucosa are pale, but without lesions. Tongue is well papillated. No gingival hyperplasia. No hypertrophy of Waldeyer's ring. NECK: Neck is supple. No jugular venous distention or thyroid enlargement. CHEST: Chest is clear to auscultation, percussion. No rhonchi, wheezes, rales, or rubs. HEART: Sinus tachycardia. No S3, S4, murmurs, and no rubs. ABDOMEN: Mildly distended. There is tenderness on palpation of the left upper quadrant where the spleen is palpable approximately 6 cm below the left costal margin in the anterior axillary line. There are no rubs heard over the spleen. EXTREMITIES: No clubbing, edema, or cyanosis. No palpable cords or Cristin's sign. NEUROLOGIC: Neurologic is normal. LABORATORY AND DIAGNOSTIC DATA: There was no. CBC done today. No chemistries today either. ASSESSMENT: 1. 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 2. Beta thalassemia trait. PLAN: 1. I will increase the patient's hydroxyurea at this time to 1000 mg twice a day. 2. Still awaiting the patient family's decision regarding a code status. 3. If the patient is to be a no code, I would then attempt to initiate low dose of therapy with cytosine arabinoside. The patient will get 20 mg subcutaneously twice a day for 10 days. 4. We will check CBC in the morning. Also, comprehensive metabolic panel, LDH, and uric acid. Dictated By: Vinod Monahan MD /estrellita/[email or web address] /Document#: [id number]
[2017-02-07 15:01] VITALS: BP 110/60; PULSE 114; RESP 21
--- NOTE | 2017-02-07 15:50 | PN ---
Date/Time of Note Date/Time of Note DATE: 02/07/17 TIME: 15:47 Assessment/Plan VTE Prophylaxis VTE Prophylaxis Intervention: SCD's Lines/Catheters IV Catheter Type (from Nrsg): Peripheral IV Subjective 24 Hr Interval Summary Free Text/Dictation acute blastic leukemia. pt is minimally alert, responsive. some choking with food, will change to clears and hold if unable overall condition continues to worsen, needs oxygen to maintain sats. cxr is ordered cachetic, lungs clear, hr ok, abd soft, no edema he appears terminal. he is dnr per family wishes. will add low dose morphine for comfort Subjective hx not possible: pt non-verbal Exam/Review of Systems Vital Signs Vitals Vital Signs Date Time Temp Pulse Resp B/P Pulse Ox O2 Delivery O2 Flow Rate FiO2 02/07/17 15:01 98.6 114 21 110/60 93 Nasal Cannula 3.0 Intake and Output 02/06/17 02/06/17 02/07/17 14:59 22:59 06:59 Intake Total 50 ml 450 ml 250 ml Balance 50 ml 450 ml 250 ml Results Result Diagram: 02/06/17 0654 02/06/17 0654 Results 24 hrs Laboratory Tests Test 02/06/17 17:57 02/06/17 21:24 02/07/17 07:34 02/07/17 08:37 Bedside Glucose 106 152 111 Lab Scanned Report BLOOD TRANSFUSION Test 02/07/17 12:51 Bedside Glucose 131 Medications Medications Current Medications Ondansetron HCl (Zofran Tab) 4 mg Q6H PRN PO NAUSEA AND/OR VOMITING; Start at 22:00 Ondansetron HCl (Zofran Inj) 4 mg Q6H PRN IV NAUSEA AND/OR VOMITING; Start at 22:00 Acetaminophen/ Hydrocodone Bitart ([place] (5/325)) 1 tab Q6H PRN PO MODERATE PAIN LEVEL 4-6 Last administered on 02/07/17t 10:56; Admin Dose 1 TAB; Start at 22:00 Magnesium Hydroxide (Milk Of Mag) 30 ml DAILY PRN PO CONSTIPATION; Start at 22:00 Bisacodyl (Dulcolax Supp) 10 mg DAILY PRN [place] CONSTIPATION; Start 02/03/17 at 22 :00 Famotidine (Pepcid) 20 mg Q12 PO Last administered on 02/07/17 08:51; Admin Dose 20 MG; Start 02/04/17 at 09:00 Fenofibrate (Tricor) 145 mg DAILY PO Last administered on 02/07/17 08:51; Admin Dose 145 MG; Start 02/04/17 at 09:00 Pantoprazole (Protonix Tab) 40 mg DAILY PO Last administered on 02/07/17 08:51 ; Admin Dose 40 MG; Start 02/04/17 at 09:00 Diagnostic Test (Pha) (Accu-Chek) 1 ea 02 XX ; Start 02/04/17 at 02:00 Miscellaneous Information 1 ea NOTE XX ; Start 02/03/17 at 23:00 Glucose (Glutose) 15 gm Q15M PRN PO DECREASED GLUCOSE; Start 02/03/17 at 23:00 Glucose (Glutose) 22.5 gm Q15M PRN PO DECREASED GLUCOSE; Start 02/03/17 at 23: 00 Dextrose (D50w Syringe) 25 ml Q15M PRN IV DECREASED GLUCOSE; Start 02/03/17 at 23:00 Dextrose (D50w Syringe) 50 ml Q15M PRN IV DECREASED GLUCOSE; Start 02/03/17 at 23:00 Glucagon (Glucagen) 1 mg Q15M PRN IM DECREASED GLUCOSE; Start 02/03/17 at 23:00 Glucose 15 gm 15 gm Q15M PRN BUCCAL DECREASED GLUCOSE; Start 02/03/17 at 23:00 Cefepime HCl (Maxipime 1gm/50 ml (Pmx)) 50 ml @ 100 mls/hr Q12 IVPB Last administered on 02/07/17 09:02; Admin Dose 100 MLS/HR; Start 02/04/17 at 14:00; Stop 02/09/17 at 13:59 Acetaminophen (Tylenol Tab) 325 mg Q6H PRN PO PAIN AND OR ELEVATED TEMP Last administered on 02/05/17 20:44; Admin Dose 325 MG; Start 02/04/17 at 13:30 Diphenhydramine HCl (Benadryl) 25 mg Q6H PRN PO ITCHING; Start 02/04/17 at 13: 30 Megestrol Acetate (Megace Susp) 400 mg BID PO Last administered on 9/1/17at 08: 51; Admin Dose 400 MG; Start 02/05/17 at 21:00 Hydroxyurea (Hydrea) 1,000 mg BID PO ; Start 02/07/17 at 21:00 FRANCHESKA ROBISON MD Feb 07, 2017 15:50
--- NOTE | 2017-02-07 16:39 | RADRPT ---
PROCEDURE: XR Chest. CLINICAL INDICATION: Cough. TECHNIQUE: Portable AP view of the chest was obtained. COMPARISON: 02/03/2017 FINDINGS: The cardiomediastinal silhouette is mildly enlarged. Diffuse interstitial edema or infiltrates are markedly worse compared to the previous examination and cannot exclude a diffuse interstitial pneumo seema. Left greater than right lower lobe consolidation consistent with atelectasis appears worse and believed to be related to left larger than right small pleural effusions. There is no evidence of pneumothorax. Demineralization is noted without acute osseous abnormality. Calcification of the aor ta is present. RPTAT:HJJR IMPRESSION: 1. Marked radiographic worsening of diffuse pulmonary infiltrates or pulmonary edema as compared to 02/03/2017, findings unable to exclude interstitial pneumonia in addition to congestive heart failu re. Continued follow-up is recommended. 2. Slight interval increase in left greater than right pleural effusions and compressive atelectasi s of the lower lobes worse on the left. Physician Jacinda Date Time Electronically viewed and signed by Physician Jacinda on 02/07/2017 16:39 /
[2017-02-07] MEDS: DEXTROSE 5%-0.45% NACL 500 ML IV SCH (18:08)
[2017-02-07] MEDS ORDERED: FUROSEMIDE 40 MG INJ IV ONE (18:30)
[2017-02-07 20:15] VITALS: BP 133/72; RESP 22
[2017-02-08] MEDS: DEXTROSE 5%-0.45% NACL 500 ML IV SCH ×3 (00:40→15:36)
[2017-02-08] MEDS: morphine 2 MG INJ IV PRN ×3 (00:44→20:48)
[2017-02-08] MEDS: ACCU-CHEK XX SCH (01:59)
[2017-02-08 02:00] VITALS: BP 93/55; RESP 22
[2017-02-08 05:20] LABS: ABNORMAL IP MESSAGE 1; HEMATOCRIT 26.3 % (42.0-52.0); HEMOGLOBIN 8.5 g/dl (14.0-18.0); MEAN CORPUSCULAR HEMOGLOBIN 28.4 pg (29.0-33.0); MEAN CORPUSCULAR HGB CONC 32.3 g/dl (32.0-37.0); NUCLEATED RED BLOOD CELLS% 0.1 /100WBC (0.0-0.0); PLATELET COUNT 105 10^3/UL (140-415); POSITIVE DIFF @See below; RED BLOOD COUNT 2.99 10^6/ul (4.70-6.10); RED CELL DISTRIBUTION WIDTH 17.9 % (11.5-14.5); WHITE BLOOD COUNT 159.4 10^3/ul (4.8-10.8)
[2017-02-08 05:58] LABS: ALBUMIN 2.9 g/dl (3.3-4.9); ALBUMIN/GLOBULIN RATIO 0.76; BILIRUBIN,INDIRECT 0.5 mg/dl (0-1.1); BILIRUBIN,TOTAL 0.5 mg/dl (0.2-1.3); CALCIUM 9.9 mg/dl (8.4-10.2); CREATININE 1.07 mg/dl (0.61-1.24); POTASSIUM 4.4 mmol/L (3.5-5.1); TOTAL PROTEIN 6.7 g/dl (6.1-8.1); URIC ACID 7.9 mg/dl (3.1-7.9)
[2017-02-08] MEDS: HYDROCODONE/APAP (5/325) TAB PO PRN (06:58)
[2017-02-08] MEDS: metFORMIN 500 MG TAB PO SCH ×2 (07:50→17:55)
[2017-02-08 08:00] VITALS: BP 116/57; RESP 22
--- NOTE | 2017-02-08 08:15 | PN ---
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 We are working to keep him comfortable. At the present time he is comfortable Subjective 24 Hr Interval Summary Free Text/Dictation Patient is now nonverbal with tachypnea. Being kept comfortable. Subjective hx not possible: pt non-verbal Exam/Review of Systems Vital Signs Vitals Vital Signs Date Time Temp Pulse Resp B/P Pulse Ox O2 Delivery O2 Flow Rate FiO2 02/08/17 02:00 100.4 125 22 93/55 96 02/07/17 21:15 Nasal Cannula 3.0 Intake and Output 02/07/17 02/07/17 02/08/17 15:00 23:00 07:00 Intake Total 50 ml 50 ml 373 ml Balance 50 ml 50 ml 373 ml Exam Constitutional: non-verbal Respiratory: clear to auscultation, normal air movement Cardiovascular: nl pulses, regular rate and rhythm Results Result Diagram: 02/08/17 0442 02/08/17 0442 Results 24 hrs Laboratory Tests Test 02/07/17 08:37 02/07/17 12:51 02/07/17 17:55 02/07/17 21:35 Bedside Glucose 111 131 121 149 Test 02/08/17 04:42 White Blood Count 159.4 #H Red Blood Count 2.99 L Hemoglobin 8.5 L Hematocrit 26.3 L Mean Corpuscular Volume 88.0 Mean Corpuscular Hemoglobin 28.4 L Mean Corpuscular Hemoglobin Concent 32.3 Red Cell Distribution Width 17.9 H Platelet Count 105 L Mean Platelet Volume Neutrophils % Lymphocytes % Monocytes % Eosinophils % Basophils % Nucleated Red Blood Cells % 0.1 H Neutrophils # (Manual) 60.7 H Lymphocytes # Monocytes # Eosinophils # Basophils # Nucleated Red Blood Cells # Sodium Level 141 Potassium Level 4.4 Chloride Level 110 Carbon Dioxide Level 22 Anion Gap 13 Blood Urea Nitrogen 31 #H Creatinine 1.07 Glucose Level 154 Uric Acid 7.9 Calcium Level 9.9 Total Bilirubin 0.5 Direct Bilirubin 0.00 Indirect Bilirubin 0.5 Aspartate Amino Transf (AST/SGOT) 27 Alanine Aminotransferase (ALT/SGPT) 28 Alkaline Phosphatase 59 Lactate Dehydrogenase 857 H Total Protein 6.7 Albumin 2.9 L Globulin 3.80 H Albumin/Globulin Ratio 0.76 Medications Medications Current Medications Ondansetron HCl (Zofran Tab) 4 mg Q6H PRN PO NAUSEA AND/OR VOMITING; Start at 22:00 Ondansetron HCl (Zofran Inj) 4 mg Q6H PRN IV NAUSEA AND/OR VOMITING; Start at 22:00 Acetaminophen/ Hydrocodone Bitart ([place] (5/325)) 1 tab Q6H PRN PO MODERATE PAIN LEVEL 4-6 Last administered on 02/07/17 20:21; Admin Dose 1 TAB; Start at 22:00 Magnesium Hydroxide (Milk Of Mag) 30 ml DAILY PRN PO CONSTIPATION; Start at 22:00 Bisacodyl (Dulcolax Supp) 10 mg DAILY PRN [place] CONSTIPATION; Start 02/03/17 at 22 :00 Famotidine (Pepcid) 20 mg Q12 PO Last administered on 02/07/17 21:22; Admin Dose 20 MG; Start 02/04/17 at 09:00 Fenofibrate (Tricor) 145 mg DAILY PO Last administered on 02/07/17 08:51; Admin Dose 145 MG; Start 02/04/17 at 09:00 Pantoprazole (Protonix Tab) 40 mg DAILY PO Last administered on 02/07/17 08:51 ; Admin Dose 40 MG; Start 02/04/17 at 09:00 Diagnostic Test (Pha) (Accu-Chek) 1 ea 02 XX ; Start 02/04/17 at 02:00 Miscellaneous Information 1 ea NOTE XX ; Start 02/03/17 at 23:00 Glucose (Glutose) 15 gm Q15M PRN PO DECREASED GLUCOSE; Start 02/03/17 at 23:00 Glucose (Glutose) 22.5 gm Q15M PRN PO DECREASED GLUCOSE; Start 02/03/17 at 23: 00 Dextrose (D50w Syringe) 25 ml Q15M PRN IV DECREASED GLUCOSE; Start 02/03/17 at 23:00 Dextrose (D50w Syringe) 50 ml Q15M PRN IV DECREASED GLUCOSE; Start 02/03/17 at 23:00 Glucagon (Glucagen) 1 mg Q15M PRN IM DECREASED GLUCOSE; Start 02/03/17 at 23:00 Glucose 15 gm 15 gm Q15M PRN BUCCAL DECREASED GLUCOSE; Start 02/03/17 at 23:00 Cefepime HCl (Maxipime 1gm/50 ml (Pmx)) 50 ml @ 100 mls/hr Q12 IVPB Last administered on 02/07/17 20:23; Admin Dose 100 MLS/HR; Start 02/04/17 at 14:00; Stop 02/09/17 at 13:59 Acetaminophen (Tylenol Tab) 325 mg Q6H PRN PO PAIN AND OR ELEVATED TEMP Last administered on 02/05/17 20:44; Admin Dose 325 MG; Start 02/04/17 at 13:30 Diphenhydramine HCl (Benadryl) 25 mg Q6H PRN PO ITCHING; Start 02/04/17 at 13: 30 Megestrol Acetate (Megace Susp) 400 mg BID PO Last administered on 02/07/17 21: 22; Admin Dose 400 MG; Start 02/05/17 at 21:00 Hydroxyurea (Hydrea) 1,000 mg BID PO Last administered on 02/07/17 21:25; Admin Dose 1,000 MG; Start 02/07/17 at 21:00 Morphine Sulfate 2 mg 2 mg Q4H PRN IV agitation or pain Last administered on 00:44; Admin Dose 2 MG; Start 02/07/17 at 16:00 Dextrose/Sodium Chloride (D5-1/2ns) 500 ml @ 75 mls/hr Q6H40M IV Last administered on 02/08/17 00:40; Admin Dose 75 MLS/HR; Start 02/07/17 at 18:00 CHRISTI THOMAS MD Feb 08, 2017 08:15
[2017-02-08] MEDS: PANTOPRAZOLE (EC) 40 MG TAB PO SCH (09:00)
[2017-02-08] MEDS: HYDROXYUREA 500 MG CAP PO SCH ×2 (09:00→20:39)
[2017-02-08] MEDS: MEGESTROL (40 MG/ML) 10ML CUP PO SCH ×2 (09:00→20:39)
[2017-02-08] MEDS: FAMOTIDINE 20 MG TAB PO SCH ×2 (09:00→20:39)
[2017-02-08] MEDS: FENOFIBRATE 145 MG TAB PO SCH (09:00)
[2017-02-08] MEDS: INSULIN ASPART [NOVOLOG] 3 ML PEN SC SCH ×4 (09:21→20:42)
[2017-02-08] MEDS: CEFEPIME 1GM/50 ML (PMX) 50 ML IVPB SCH ×2 (10:18→20:43)
[2017-02-08 12:20] VITALS: BP 125/65; PULSE 88; RESP 20
[2017-02-08] MEDS ORDERED: ACETAMINOPHEN 650 MG SUPP PR PRN (12:30)
[2017-02-08 14:30] VITALS: BP 125/75; PULSE 78; RESP 20
--- NOTE | 2017-02-08 18:44 | PN ---
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 Very poor overall prognosis. Oxygen saturations are very low in the 80s and he is likely to pass shortly. Agree with comfort care. Problems: Subjective 24 Hr Interval Summary Free Text/Dictation He is not responsive. DNR is ordered, but not yet comfort care. Exam/Review of Systems Vital Signs Vitals Vital Signs Date Time Temp Pulse Resp B/P Pulse Ox O2 Delivery O2 Flow Rate FiO2 02/08/17 14:30 98.5 78 20 125/75 90 Nasal Cannula 3.0 Intake and Output 02/07/17 02/07/17 02/08/17 15:00 23:00 07:00 Intake Total 50 ml 50 ml 373 ml Balance 50 ml 50 ml 373 ml Exam Cachectic Not responsive. Results Result Diagram: 02/08/17 0442 02/08/17 0442 Results 24 hrs Laboratory Tests Test 02/07/17 21:35 02/08/17 04:42 02/08/17 09:17 02/08/17 12:50 Bedside Glucose 149 159 159 White Blood Count 159.4 #H Red Blood Count 2.99 L Hemoglobin 8.5 L Hematocrit 26.3 L Mean Corpuscular Volume 88.0 Mean Corpuscular Hemoglobin 28.4 L Mean Corpuscular Hemoglobin Concent 32.3 Red Cell Distribution Width 17.9 H Platelet Count 105 L Mean Platelet Volume Neutrophils % Lymphocytes % Monocytes % Eosinophils % Basophils % Nucleated Red Blood Cells % 0.1 H Neutrophils # (Manual) 60.7 H Lymphocytes # Monocytes # Eosinophils # Basophils # Nucleated Red Blood Cells # Sodium Level 141 Potassium Level 4.4 Chloride Level 110 Carbon Dioxide Level 22 Anion Gap 13 Blood Urea Nitrogen 31 #H Creatinine 1.07 Glucose Level 154 Uric Acid 7.9 Calcium Level 9.9 Total Bilirubin 0.5 Direct Bilirubin 0.00 Indirect Bilirubin 0.5 Aspartate Amino Transf (AST/SGOT) 27 Alanine Aminotransferase (ALT/SGPT) 28 Alkaline Phosphatase 59 Lactate Dehydrogenase 857 H Total Protein 6.7 Albumin 2.9 L Globulin 3.80 H Albumin/Globulin Ratio 0.76 Test 02/08/17 18:28 Bedside Glucose 191 Medications Medications Current Medications Ondansetron HCl (Zofran Tab) 4 mg Q6H PRN PO NAUSEA AND/OR VOMITING; Start at 22:00 Ondansetron HCl (Zofran Inj) 4 mg Q6H PRN IV NAUSEA AND/OR VOMITING; Start at 22:00 Acetaminophen/ Hydrocodone Bitart ([place] (5/325)) 1 tab Q6H PRN PO MODERATE PAIN LEVEL 4-6 Last administered on 02/07/17 20:21; Admin Dose 1 TAB; Start at 22:00 Magnesium Hydroxide (Milk Of Mag) 30 ml DAILY PRN PO CONSTIPATION; Start at 22:00 Bisacodyl (Dulcolax Supp) 10 mg DAILY PRN [place] CONSTIPATION; Start 02/03/17 at 22 :00 Famotidine (Pepcid) 20 mg Q12 PO Last administered on 02/07/17 21:22; Admin Dose 20 MG; Start 02/04/17 at 09:00 Fenofibrate (Tricor) 145 mg DAILY PO Last administered on 02/07/17 08:51; Admin Dose 145 MG; Start 02/04/17 at 09:00 Pantoprazole (Protonix Tab) 40 mg DAILY PO Last administered on 02/07/17 08:51 ; Admin Dose 40 MG; Start 02/04/17 at 09:00 Diagnostic Test (Pha) (Accu-Chek) 1 ea 02 XX ; Start 02/04/17 at 02:00 Miscellaneous Information 1 ea NOTE XX ; Start 02/03/17 at 23:00 Glucose (Glutose) 15 gm Q15M PRN PO DECREASED GLUCOSE; Start 02/03/17 at 23:00 Glucose (Glutose) 22.5 gm Q15M PRN PO DECREASED GLUCOSE; Start 02/03/17 at 23: 00 Dextrose (D50w Syringe) 25 ml Q15M PRN IV DECREASED GLUCOSE; Start 02/03/17 at 23:00 Dextrose (D50w Syringe) 50 ml Q15M PRN IV DECREASED GLUCOSE; Start 02/03/17 at 23:00 Glucagon (Glucagen) 1 mg Q15M PRN IM DECREASED GLUCOSE; Start 02/03/17 at 23:00 Glucose 15 gm 15 gm Q15M PRN BUCCAL DECREASED GLUCOSE; Start 02/03/17 at 23:00 Cefepime HCl (Maxipime 1gm/50 ml (Pmx)) 50 ml @ 100 mls/hr Q12 IVPB Last administered on 02/08/17 10:18; Admin Dose 100 MLS/HR; Start 02/04/17 at 14:00; Stop 02/09/17 at 13:59 Acetaminophen (Tylenol Tab) 325 mg Q6H PRN PO PAIN AND OR ELEVATED TEMP Last administered on 02/05/17 20:44; Admin Dose 325 MG; Start 02/04/17 at 13:30 Diphenhydramine HCl (Benadryl) 25 mg Q6H PRN PO ITCHING; Start 02/04/17 at 13: 30 Megestrol Acetate (Megace Susp) 400 mg BID PO Last administered on 02/07/17 21: 22; Admin Dose 400 MG; Start 02/05/17 at 21:00 Hydroxyurea (Hydrea) 1,000 mg BID PO Last administered on 02/07/17 21:25; Admin Dose 1,000 MG; Start 02/07/17 at 21:00 Morphine Sulfate 2 mg 2 mg Q4H PRN IV agitation or pain Last administered on 12:27; Admin Dose 2 MG; Start 02/07/17 at 16:00 Dextrose/Sodium Chloride (D5-1/2ns) 500 ml @ 75 mls/hr Q6H40M IV Last administered on 02/08/17 15:36; Admin Dose 75 MLS/HR; Start 02/07/17 at 18:00 Acetaminophen (Tylenol Supp) 650 mg Q6H PRN [place] ELEVATED TEMPERATURE Last administered on 02/08/17 12:56; Admin Dose 650 MG; Start 02/08/17 at 12:30 MARY YOUNG MD Feb 08, 2017 18:44
[2017-02-08 20:00] VITALS: BP 98/57; RESP 19
--- NOTE | 2017-02-09 10:12 | DES ---
Date/Time of Note Date/Time of Note DATE: 02/09/17 TIME: 10:09 Discharge/ Summary Admission/Discharge Info Admit Date/Time Feb 03, 2017 at 21:43 Discharge Date/Time Feb 09, 2017 at 03:16 Final Diagnosis Acute myelogenous leukemia; myelodysplastic syndrome; sepsis with pneumonia; organic brain syndrome/dementia; diabetes mellitus type 2; hyperlipidemia; hyperuricemia; diastolic dysfunction Preliminary Cause of Sepsis due to pneumonia due to acute myelogenous leukemia due to myelodysplastic syndrome Hx of Present Illness 71-year-old gentleman with a long-term myelodysplastic syndrome with erythroid failure. 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 Been on treatment for this through Dr. Monahan but has now come in on January 31 blasts seen on this smear with marked leukocytosis. Time was opted to treat him with hydroxyurea and not give him chemotherapy as we thought that the therapeutics would be far more likely to cause harm than benefit. He was discharged home under the family's care where he made at 36-48 hours before they brought him into the emergency room. 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 Very poor overall prognosis. Oxygen saturations are very low in the 80s and he is likely to pass shortly. Agree with comfort care. 71-year-old [place] male admitted with acute myelogenous leukemia fever pneumonia sepsis. He was initiated on treatment. Review with the family by hematology oncology and the rest of the physicians involved noted that attempts to try and use induction her consolidation chemotherapy would be immediately fateful without benefits or hope of benefit. The family requested he be made DNR after long careful consideration on comfort measures. Initiated on comfort measures treated with respect and dignity and ultimately due to the sepsis induced respiratory failure. No autopsy indicated Pending Labs/Cultures Laboratory Tests Test 02/08/17 12:50 02/08/17 18:28 02/08/17 20:36 Bedside Glucose 159mg/dL (70-220) 191mg/dL (70-220) 195mg/dL (70-220) CHRISTI THOMAS MD Feb 09, 2017 10:12
== END 2017-02-09 03:16 | disposition expired | DRG 871 ==
LOC: E/R 13:29 → MS1 21:43
PROVIDERS: ADMIT Internal Medicine; ATTEND Internal Medicine
PROC: 30233N1 Transfusion of Nonautologous Red Blood Cells into Peripheral Vein, Percutaneous Approach (ICD-10-PCS; principal; 2017-02-04)
DX: A41.9 Sepsis, unspecified organism (principal); J18.9 Pneumonia, unspecified organism; G93.40 Encephalopathy, unspecified; C92.Z0 Other myeloid leukemia not having achieved remission; D56.1 Beta thalassemia; F03.90 Unspecified dementia, unspecified severity, without behavioral disturbance, psychotic disturbance, mood disturbance, and anxiety; E11.9 Type 2 diabetes mellitus without complications; K21.9 Gastro-esophageal reflux disease without esophagitis; D46.9 Myelodysplastic syndrome, unspecified; E78.5 Hyperlipidemia, unspecified; E79.0 Hyperuricemia without signs of inflammatory arthritis and tophaceous disease; F09 Unspecified mental disorder due to known physiological condition; Z66 Do not resuscitate
CPT/HCPCS: 36415; 36430; 71010; 74177; 80048; 80053; 82962; 83615; 83690; 84560; 85025; 85610; 85730; 86644; 86850; 86900; 86901; 86920; 86945; 87040; 87081; 96374; 96375; 97161; 97166; J0692; J1170; J1815; J1940; J2270; J2405; J3370; J7030; J7042; P9016; Q9967